=== PATIENT | female | born 1965 | race Caucasian/White ===

== ENCOUNTER → 2022-05-29 14:39 | Outpatient (BNVA) | payer MEDICARE, OTHER, SELFPAY | PROVIDERS: PCP Internal Medicine; Visit Provider Nurse Practitioner Family | DX: M25.552 Pain in left hip (principal); M16.12 Unilateral primary osteoarthritis, left hip; M53.9 Dorsopathy, unspecified; M47.819 Spondylosis without myelopathy or radiculopathy, site unspecified; Z96.89 Presence of other specified functional implants | CPT/HCPCS: 99202 ==

== ENCOUNTER 2022-07-09 06:20 | Outpatient (REF) | payer MEDICARE, OTHER, SELFPAY ==
--- NOTE | ~2022-07-09 | FL_ITS ---
EXAMINATION: XR FLUOROSCOPY WITH IMAGES CLINICAL INFORMATION: Left hip pain. COMPARISON: None. TECHNIQUE: Fluoroscopy performed by Dr. Tony Farnsworth. Fluoroscopy time: 0.3 minutes. Cumulative Dose: 16.7 mGy. DAP: 4.15 Gy-cm2. Images: 2. FINDINGS: Fluoroscopic spot view left hip demonstrates intracapsular contrast. There is also a fluoroscopic spot view of the thoracolumbar spine. Spinal stimulator is noted. FL/FL guidance in treatment room IMPRESSION: Fluoroscopy for pain management procedure.
== END 2022-07-09 06:21 | disposition home or self-care (01) ==
LOC: HO.RADIR 06:20
PROVIDERS: Visit Provider Anesthesiology
DX: M16.12 Unilateral primary osteoarthritis, left hip (principal); M53.9 Dorsopathy, unspecified; M47.819 Spondylosis without myelopathy or radiculopathy, site unspecified; Z96.89 Presence of other specified functional implants
CPT/HCPCS: 20610; J3300

== ENCOUNTER 2022-08-05 14:07 | Outpatient (REF) | payer MEDICARE, OTHER, SELFPAY ==
--- NOTE | ~2022-08-05 | XR_ITS ---
EXAMINATION: XR FEMUR, LEFT XR PELVIS CLINICAL INFORMATION: Pain left thigh. COMPARISON: None TECHNIQUE: 2 views left femur and 2 views AP pelvis. FINDINGS: LEFT FEMUR: There is mild loss of left hip joint space with inferior periarticular spurring. No bony fracture, periosteal thickening or bone marrow abnormality seen. The soft tissues are normal. AP PELVIS: There is mild loss of left hip joint space with periarticular spurring. No visible acute fracture or bony abnormality seen. The soft tissues are normal. The SI joints are normal. XR/XR femur LT 2V IMPRESSION: Degenerative arthritic changes left hip joint. Rest of the pelvis and left femur is unremarkable.
--- NOTE | ~2022-08-05 | XR_ITS ---
EXAMINATION: XR FEMUR, LEFT XR PELVIS CLINICAL INFORMATION: Pain left thigh. COMPARISON: None TECHNIQUE: 2 views left femur and 2 views AP pelvis. FINDINGS: LEFT FEMUR: There is mild loss of left hip joint space with inferior periarticular spurring. No bony fracture, periosteal thickening or bone marrow abnormality seen. The soft tissues are normal. AP PELVIS: There is mild loss of left hip joint space with periarticular spurring. No visible acute fracture or bony abnormality seen. The soft tissues are normal. The SI joints are normal. XR/XR pelvis 1-2V IMPRESSION: Degenerative arthritic changes left hip joint. Rest of the pelvis and left femur is unremarkable.
[2022-08-05 16:07] LABS: Blood Urea Nitrogen 16 mg/dL (9-16); Estimated Glomerular Filt Rate > 60
== END 2022-08-05 14:08 | disposition home or self-care (01) ==
LOC: HO.LAB 14:07
PROVIDERS: PCP Internal Medicine; Visit Provider Nurse Practitioner Family
DX: M16.12 Unilateral primary osteoarthritis, left hip (principal); M79.652 Pain in left thigh; M47.819 Spondylosis without myelopathy or radiculopathy, site unspecified; M53.9 Dorsopathy, unspecified; M54.16 Radiculopathy, lumbar region; Z96.89 Presence of other specified functional implants
CPT/HCPCS: 36415; 72170; 73552; 82565; 84520; 99212

== ENCOUNTER → 2022-12-02 13:01 | Outpatient (BNVA) | payer MEDICARE, OTHER, SELFPAY | PROVIDERS: PCP Internal Medicine; Visit Provider Nurse Practitioner Family | DX: M54.16 Radiculopathy, lumbar region (principal); M47.819 Spondylosis without myelopathy or radiculopathy, site unspecified; M53.9 Dorsopathy, unspecified; M47.816 Spondylosis without myelopathy or radiculopathy, lumbar region; Z96.89 Presence of other specified functional implants; E66.01 Morbid (severe) obesity due to excess calories; Z68.42 Body mass index [BMI] 45.0-49.9, adult | CPT/HCPCS: 99212 ==

== ENCOUNTER 2022-12-13 07:53 | Day surgery (SDC) | payer MEDICARE, OTHER, SELFPAY ==
[2022-12-09 14:38] VITALS: BMI 47.2
--- NOTE | ~2022-12-13 | FL_ITS ---
EXAMINATION: XR FLUOROSCOPY WITH IMAGES CLINICAL INFORMATION: Back pain. Bilateral medial branch block COMPARISON: None. TECHNIQUE: Fluoroscopy Supervised By: Dr. Tony Farnsworth. Fluoroscopy Time: 1.1 minutes. Cumulative Dose: 77.9 mGy. DAP: 21.2 Gycm2. Images: 6. FINDINGS: There are spinal needles overlying the bilateral outer L3, L4, and L5 neural foramen. There is contrast seen in the respective nerve sheaths. Some early transforaminal epidural extension is suggested. No visible vascular communication. There are degenerative changes lumbar spine with mild vertebral spurring. FL/FL guidance in OR IMPRESSION: Fluoroscopy for pain management procedures.
[2022-12-13 08:21] VITALS: BP 106/73; PULSE 74; RESP 18; TEMP 37; O2SAT 97
--- NOTE | 2022-12-13 08:25 | HO.ANESPROP2 ---
HPI - Anesthesia Eval Consult details Narrative: 57 yr old morbidlyobese pt with anxiety for diagnostic MBBB PMFSH Active Problems Active Problems: All Active Problems (Updated 12/09/22 @ 14:21 by Nilda Starr RN) Left hip pain (Acute) Osteoarthritis of left hip (Acute) Multilevel degenerative disc disease (Acute) Facet arthropathy, multilevel (Acute) S/P insertion of spinal cord stimulator (Acute) Left thigh pain (Acute) Lumbar radiculitis (Acute) Spinal cord stimulator status (Acute) Lumbar spondylosis (Acute) Morbid obesity with BMI of 45.0-49.9, adult (Acute) Past Medical History Medical History (Updated 12/09/22 @ 14:21 by Nilda Starr RN) GERD (gastroesophageal reflux disease) HTN (hypertension) Hypothyroid Lumbar radiculitis Lumbar spondylosis Multilevel degenerative disc disease Osteoarthritis Family History Family history of problems with anesthesia: No Surgical History Surgical History (Updated 12/09/22 @ 14:17 by Nilda Starr RN) History of back surgery History of sleeve gastrectomy History of surgery on left wrist Hx of cholecystectomy Hx of hysterectomy Hx of laparoscopic gastric banding Hx of sinus surgery S/P insertion of spinal cord stimulator History of Problems with Anesthesia: No Social History Social History Patient Tobacco Use Status: Never used Tobacco Second Hand Smoke Exposure: No Use of substances other than those prescribed or required for medical reasons: No Are you DNR?: No Advance Directives: No Advance Directives Information Provided: Yes Advance Directives on File: No Meds Allergies Allergy/AdvReac Type Severity Reaction Status Date / Time morphine AdvReac Severe n/v Verified 08/05/22 13:35 Active Medications: Current Medications Lactated Ringer's (Lr) 1,000 mls @ 80 mls/hr IVCONT .[id number] [facility] Home Medications Medication Instructions Recorded Confirmed Last Taken Type aspirin 81 mg tablet,delayed 81 mg PO DAILY 05/29/22 12/09/22 12/06/22 History release (Adult Aspirin Regimen) celecoxib 100 mg capsule 100 mg PO BID 05/29/22 12/09/22 12/06/22 History cyclobenzaprine 10 mg tablet 10 mg PO BID 05/29/22 12/09/22 Unknown History estradiol 0.05 mg/24 hr semiweekly 1 patch transdermal ONCE 05/29/22 12/09/22 Unknown History transdermal patch (Yari) furosemide 80 mg tablet 80 mg PO DAILY 05/29/22 12/09/22 Unknown History gabapentin 600 mg tablet 900 mg PO TID 05/29/22 12/09/22 Unknown History hydroxyzine HCl 10 mg tablet 10 mg PO BID 05/29/22 12/09/22 Unknown History levothyroxine 150 mcg tablet 150 mcg PO DAILY 05/29/22 12/09/22 Unknown History lidocaine 5 % topical patch 1 patch transdermal DAILY 05/29/22 12/09/22 Unknown History metoprolol succinate 50 mg 50 mg PO DAILY 05/29/22 12/09/22 Unknown History tablet,extended release 24 hr omeprazole 20 mg capsule,delayed 20 mg PO DAILY 05/29/22 12/09/22 Unknown History release oxcarbazepine 300 mg tablet 300 mg PO BID 05/29/22 12/09/22 Unknown History oxycodone-acetaminophen 5 mg-325 1 tab PO TID PRN Pain 05/29/22 12/09/22 Unknown History mg tablet pramipexole 1 mg tablet 1 mg PO TID 05/29/22 12/09/22 Unknown History triamcinolone acetonide 0.1 % appl topical 08/05/22 Unknown History topical cream sertraline 100 mg tablet 100 mg PO DAILY 12/02/22 12/09/22 Unknown History Exam Exam Date and Time: December 13, 2022 0825 Height,Weight and Vital Signs: Height 5 ft 7 in Weight 136.985 kg Last Vital Signs Temp 98.6 F 12/13/22 08:21 Pulse 74 12/13/22 08:21 Resp 18 12/13/22 08:21 BP 106/73 12/13/22 08:21 Pulse Ox 97 12/13/22 08:21 O2 Del Method 12/13/22 08:21 Airway Mallampati Class: II TM Dist: >3cm Heart: rrr Lungs: cta Assessment and Plan Assessment Anesthesia Assessment: Anesthesia Plan Discussed and Chart Reviewed Final Anesthetic Review Family History of Problems with Anesthesia: No History of Problems with Anesthesia: No NPO: Yes ASA Class: III Final Preanesthetic Review: No Changes in Pt Med Stat, Meds/Allgs Chart Reviewed, Consent Obtained/Reviewed and Anes Risks/Benef Reviewed Patient Risk: Low Procedure Risk: Low Anesthetic Plan Anesthetic Plan: MAC: Disposition: Standard PACU
[2022-12-13] MEDS: Lactated Ringers 1,000 ML 80 ML IVCONT (08:30)
--- NOTE | 2022-12-13 08:44 | MHC.SHP ---
Pre-Procedural Eval Section A Date of Service: 12/13/22 The patient is an INPATIENT: No Changes since office visit: Yes Patient answered all questions The History & Physical has been completed within 30 days and I have reviewed it.: No Section B Chief Complaint: Spondylosis without myelopathy or radiculopathy, Details of Present Illness: spondylosis without myelo/radiculopathy Relevant Family History (Specify if Yes): No Relevant Social History: None Medical History: No relevant PMH History of Previous Operations: No relevant previous surgery Allergies: Allergies Allergy/AdvReac Type Severity Reaction Status Date / Time morphine AdvReac Severe n/v Verified 08/05/22 13:35 Review of Systems Sugical H&P ROS: Negative: Cardiovascular, Respiratory, Neurological, Psychiatric, Hem-Onc, Allergic/Immunologic, Gastrointestinal, Genitourinary, Musculoskeletal, Integumentary and Eyes/Ears/Nose/Throat and Yes, Specify: Constitution (obesity) and Endocrine (hypothyroidism) Exam Surgical H&P Exam: Normal: HEENT, Normal: Heart, Normal: Lungs, Normal: Extremities, Normal: Skin and Normal: Neurological and Significant Findings: Abdomen (enlarged 2 to i/a and s/q fat) Plan Diagnosis/Plan: Unchanged I have reviewed the history and physical and performed a pertinent physical examination on my patient. No changes have occurred unless specified. Time Spent With Patient Time: Total time managing care of this patient today _10___ minutes.
[2022-12-13 09:35] VITALS: BP 126/61; PULSE 87; RESP 17; TEMP 37.4; O2SAT 100
--- NOTE | 2022-12-13 09:38 | P.BOP_ITS ---
Brief Operative Note Date of Service: 12/13/22 Pre-op diagnosis: spondylosis lumbar spine without myelo/radiculopathy Post-op diagnosis: same Procedure: bilateral diagnostic L3- L4- L5 MBBs Surgeon: Tony Farnsworth MD Anesthesia: MAC Was an Computer Game Programmer used for this Procedure?: No Estimated blood loss (mL): 2 Condition: stable Disposition: PACU
--- NOTE | 2022-12-13 09:42 | W.PM.OPN ---
Operative Note Operative Note Date of Service: 12/13/22 Narrative: Diagnostic medial branch block L3,L4 dorsal ramus L5 bilateral.? ? ?Informed consent was very thoroughly explained to the patient. All questions were explained and? answered.? The patient was taken inside the operating room where she was positioned prone on the operating table. Time-out was performed delineating correct site, side, the nature of the procedure, patient's allergy, preoperative antibiotic if needed.? All operating room staff was participating in OR time-out procedure. ASA monitors were applied and the patient was moderately sedated. It was noted that the restless leg syndrome became exacerbated under deeper level of sedation, the patient became very restless and due to her significant body mass there was a risk that the patient would fall off the OR table. The patient is held and we waited until she woke up more. While awake the patient calmed down and was able to stay more still throughout of the procedure ? ? The lower back was prepped with ChloraPrep and draped full body fenestrated laparoscopy drape.?I was wearing sterile surgical gown and sterile C-arm was brought over the operating field and sq picture of L4-and L5 vertebra and S1 AREA were delineated on the screen.? Point of interest were delineated as confluence of superior articular process of L4 and L5 vertebra bilaterally with corresponding transverse processes as well as confluence of the sacral alae bilaterally with superior articular process of S1.? The projection of the point of interest to the skin were injected with the small amount of local anesthetic lidocaine 2% 1-1.5 cc.? After that 22 gauge 5 inch spinal needle was driven sequentially to the points of interest in tunnel vision fashion. After needles gently contacted the bone at the point of interests the needle was injected with small amount of the contrast.? The injection of the contrast did not demonstrate any intravascular or intrathecal spread of the contrast.? After that injection of the? ropivacaine 0.5%-1cc was performed at each needle location.? ? Upon completion of the injections? needle was? removed and sterile Band-Aids were applied.??The patient tolerated the procedure well, she went to PACU for the recovery.
[2022-12-13 09:50] VITALS: BP 125/66; PULSE 70; RESP 18; TEMP 37.2; O2SAT 98
== END 2022-12-13 10:18 | disposition home or self-care (01) ==
PROVIDERS: PCP Internal Medicine; Visit Provider Anesthesiology
PROC: (CPT 64493; principal; 2022-12-13 09:10)
DX: M47.816 Spondylosis without myelopathy or radiculopathy, lumbar region (principal); M53.9 Dorsopathy, unspecified; M51.36 Other intervertebral disc degeneration, lumbar region; G57.92 Unspecified mononeuropathy of left lower limb; G25.81 Restless legs syndrome; E66.01 Morbid (severe) obesity due to excess calories; Z68.42 Body mass index [BMI] 45.0-49.9, adult; Z96.89 Presence of other specified functional implants
CPT/HCPCS: 64493; 64494; J2795; J3010; Q9965

== ENCOUNTER → 2022-12-17 11:03 | Outpatient (BNVA) | payer MEDICARE, OTHER, SELFPAY | PROVIDERS: PCP Internal Medicine; Visit Provider Nurse Practitioner Family | DX: M47.26 Other spondylosis with radiculopathy, lumbar region (principal); M53.9 Dorsopathy, unspecified | CPT/HCPCS: Q3014 ==

== ENCOUNTER 2022-12-27 07:42 | Day surgery (SDC) | payer MEDICARE, OTHER, SELFPAY ==
--- NOTE | ~2022-12-27 | FL_ITS ---
EXAMINATION: XR FLUOROSCOPY WITH IMAGES CLINICAL INFORMATION: Bilateral lumbar RFA. COMPARISON: Fluoroscopic spot views lumbar spine 12/13/2022. TECHNIQUE: Fluoroscopy Supervised By: Dr. Tony Farnsworth. Fluoroscopy Time: 1.0 minutes. Cumulative Dose: 27.0 mGy. DAP: 7.38 Gycm2. Images: 6. FINDINGS: There are bilateral needle/electrodes overlying the bilateral outer L3, L4, and L5 neural foramen. FL/FL guidance in OR IMPRESSION: Fluoroscopy for pain management procedures.
[2022-12-27 07:44] VITALS: BMI 47.2
[2022-12-27 08:09] VITALS: BP 106/52; PULSE 62; RESP 20; TEMP 36.1; O2SAT 96
--- NOTE | 2022-12-27 09:28 | P.HPSUR_ITS ---
Pre-Procedural Eval Section A Date of Service: 12/27/22 The patient is an INPATIENT: No Changes since office visit: Yes Changes in Medication The History & Physical has been completed within 30 days and I have reviewed it.: No Section B Chief Complaint: Spondylosis without myelopathy or radiculopathy, l Details of Present Illness: spondylosis lumbar without myelopathy or radiculopathy Relevant Family History (Specify if Yes): No Relevant Social History: None Present Medications: see Short Stay Collaborative assessment Medical History: No relevant PMH History of Previous Operations: Relevant previous surgery/procedure and date(s) (patient has SCS for the pain control which does not cover her axial pain.) Allergies: Allergies Allergy/AdvReac Type Severity Reaction Status Date / Time morphine AdvReac Severe n/v Verified 08/05/22 13:35 Review of Systems Sugical H&P ROS: Negative: Cardiovascular, Respiratory, Psychiatric, Hem-Onc, Allergic/Immunologic, Gastrointestinal, Genitourinary, Integumentary, Endocrine and Eyes/Ears/Nose/Throat and Yes, Specify: Constitution (morbid obesity), Neurological (restless legs syndrome) and Musculoskeletal (as above) Exam Surgical H&P Exam: Normal: HEENT, Normal: Heart, Normal: Lungs, Normal: Extremities, Normal: Abdomen and Normal: Skin and Significant Findings: [place] rological (restless legs) Plan Diagnosis/Plan: Change I have reviewed the history and physical and performed a pertinent physical examination on my patient. To expedite the service for this patient considering her co-morbidities and difficulty with anesthesia for this patient the decision was made to perform bilateral RFA instead of left sided procedure. Time Spent With Patient Time: Total time managing care of this patient today ___15_ minutes.
--- NOTE | 2022-12-27 10:12 | HO.ANESPROP2 ---
HPI - Anesthesia Eval Consult details Narrative: median n branch block for chronic pain bl l3/4 drl5 [facility] Active Problems Active Problems: All Active Problems (Updated 12/09/22 @ 14:21 by Nilda Starr RN) Left hip pain (Acute) Osteoarthritis of left hip (Acute) Multilevel degenerative disc disease (Acute) Facet arthropathy, multilevel (Acute) S/P insertion of spinal cord stimulator (Acute) Left thigh pain (Acute) Lumbar radiculitis (Acute) Spinal cord stimulator status (Acute) Lumbar spondylosis (Acute) Morbid obesity with BMI of 45.0-49.9, adult (Acute) Past Medical History Medical History GERD (gastroesophageal reflux disease) HTN (hypertension) Hypothyroid Lumbar radiculitis Lumbar spondylosis Multilevel degenerative disc disease Osteoarthritis Functional capacity: uses cane/walker Family History Family history of problems with anesthesia: No Surgical History Surgical History History of back surgery History of sleeve gastrectomy History of surgery on left wrist Hx of cholecystectomy Hx of hysterectomy Hx of laparoscopic gastric banding Hx of sinus surgery S/P insertion of spinal cord stimulator History of Problems with Anesthesia: No Social History Social History Patient Tobacco Use Status: Never used Tobacco Second Hand Smoke Exposure: No Are you DNR?: No Advance Directives: No Advance Directives Information Provided: Yes Nutrition Risks: No Nutritional Risk Meds Allergies Allergy/AdvReac Type Severity Reaction Status Date / Time morphine AdvReac Severe n/v Verified 08/05/22 13:35 Home Medications Medication Instructions Recorded Confirmed Last Taken Type aspirin 81 mg tablet,delayed 81 mg PO DAILY 05/29/22 12/09/22 12/06/22 History release (Adult Aspirin Regimen) celecoxib 100 mg capsule 100 mg PO BID 05/29/22 12/09/22 12/06/22 History cyclobenzaprine 10 mg tablet 10 mg PO BID 05/29/22 12/09/22 Unknown History estradiol 0.05 mg/24 hr semiweekly 1 patch transdermal ONCE 05/29/22 12/09/22 Unknown History transdermal patch (Yari) furosemide 80 mg tablet 80 mg PO DAILY 05/29/22 12/09/22 Unknown History gabapentin 600 mg tablet 900 mg PO TID 05/29/22 12/09/22 Unknown History hydroxyzine HCl 10 mg tablet 10 mg PO BID 05/29/22 12/09/22 Unknown History levothyroxine 150 mcg tablet 150 mcg PO DAILY 05/29/22 12/09/22 Unknown History lidocaine 5 % topical patch 1 patch transdermal DAILY 05/29/22 12/09/22 Unknown History metoprolol succinate 50 mg 50 mg PO DAILY 05/29/22 12/09/22 Unknown History tablet,extended release 24 hr omeprazole 20 mg capsule,delayed 20 mg PO DAILY 05/29/22 12/09/22 Unknown History release oxcarbazepine 300 mg tablet 300 mg PO BID 05/29/22 12/09/22 Unknown History oxycodone-acetaminophen 5 mg-325 1 tab PO TID PRN Pain 05/29/22 12/09/22 Unknown History mg tablet pramipexole 1 mg tablet 1 mg PO TID 05/29/22 12/09/22 Unknown History triamcinolone acetonide 0.1 % appl topical 08/05/22 Unknown History topical cream sertraline 100 mg tablet 100 mg PO DAILY 12/02/22 12/09/22 Unknown History Exam Exam Date and Time: December 27, 2022 1012 Height,Weight and Vital Signs: Height 5 ft 7 in Weight 136.985 kg Last Vital Signs Temp 97 F 12/27/22 08:09 Pulse 62 12/27/22 08:09 Resp 20 12/27/22 08:09 BP 106/52 L 12/27/22 08:09 Pulse Ox 96 12/27/22 08:09 O2 Del Method 12/27/22 08:09 Airway Mallampati Class: II TM Dist: >3cm Neck ROM: Full Heart: RR Lungs: CTA Assessment and Plan Final Anesthetic Review Family History of Problems with Anesthesia: No History of Problems with Anesthesia: No NPO: Yes ASA Class: III Final Preanesthetic Review: No Changes in Pt Med Stat, Meds/Allgs Chart Reviewed, Consent Obtained/Reviewed and Anes Risks/Benef Reviewed Patient Risk: Low Procedure Risk: Low Anesthetic Plan Anesthetic Plan: MAC: and Agree w/ Assess. and Plan Disposition: Standard PACU
[2022-12-27 10:52] VITALS: BP 141/88; PULSE 60; RESP 18; TEMP 36.4; O2SAT 99
--- NOTE | 2022-12-27 10:58 | PM.OP ---
Brief Operative Note Date of Service: 12/27/22 Pre-op diagnosis: spondylosis lumbar without myelopathy or radiculopathy Post-op diagnosis: same Procedure: L3- L4- DRL5 bilateral MB RFA. Surgeon: Tony Farnsworth MD Was an Restaurant And Bar Manager used for this Procedure?: No Estimated blood loss (mL): 4 Pathology: none sent Condition: stable Disposition: PACU
--- NOTE | 2022-12-27 11:01 | W.PM.OPN ---
Operative Note Operative Note Date of Service: 12/27/22 Narrative: RFA [id number] bilateral Informed consent was explained to the patient. All questions were explained and answered. The patient was taken inside the operating room where he was positioned prone on the operating table. ASA m-rs were applied, the patient was minimally sedated.She was? able to answer the questions and respond to the commands. Time-out was performed delineating name and of the patient,? correct site, side, the nature of the procedure, patient's allergy, preoperative antibiotic if needed. All operating room staff was participating in OR time-out procedure. The lower back was prepped with ChloraPrep and draped with sterile towels. C-arm was brought over the operating field and sq picture of L4, L5 vertebra and S1 AREA were delineated on the screen. Point of interest were delineated as connection of superior articular process of , L4, L5 vertebra bilaterally with corresponding transverse processes as well as connection of the sacral alae bilaterally with superior articular process of S1 1st on the right and then on the left side. ?The projection of the point of interest to the skin were injected with the small amount of local anesthetic lidocaine 2% 1-1.5 cc. After that 18 gauge 150 mm RFA canulas? were driven to the point of interest in oblique fashion. After needles gently contacted the bone the sensory test was performed, patient reported pressure? sensation on sensory test.? After that motor tests were performed and no motor response was detected in the patients feet lower legs or thighs. After that? at the point of interests the cannulas? were injected with small amount of ropivacaine 0.5% mixed with lidocaine 1%-1cc? and also mixed with very small amount of Kenalog. 90 seconds after the injection the energy application was performed at 89 degrees Centigrade for 90 second. After first energy application the canullas were rotated 180 degrees and energy application was repeated at the same setting. . Upon completion of the energy applications canullas were removed and sterile bandaids? were applied, The? patient was taken outside of the operating room to recovery room where she recovered uneventfully.
[2022-12-27 11:07] VITALS: BP 123/72; PULSE 58; RESP 18; TEMP 36.2; O2SAT 98
== END 2022-12-27 11:38 | disposition home or self-care (01) ==
PROVIDERS: PCP Internal Medicine; Visit Provider Anesthesiology
PROC: (CPT 64635; principal; 2022-12-27 09:10)
DX: M47.816 Spondylosis without myelopathy or radiculopathy, lumbar region (principal); G89.29 Other chronic pain; M53.9 Dorsopathy, unspecified; G25.81 Restless legs syndrome; M19.90 Unspecified osteoarthritis, unspecified site; I10 Essential (primary) hypertension; E03.9 Hypothyroidism, unspecified; Z79.82 Long term (current) use of aspirin; Z79.899 Other long term (current) drug therapy; Z88.8 Allergy status to other drugs, medicaments and biological substances; Z98.890 Other specified postprocedural states; Z98.84 Bariatric surgery status
CPT/HCPCS: 64635; 64636 ×2; J2250; J2795; J3010; J3301

== ENCOUNTER → 2023-01-28 14:47 | Outpatient (BNVA) | payer MEDICARE, OTHER, SELFPAY | PROVIDERS: PCP Internal Medicine; Visit Provider Nurse Practitioner Family | DX: M25.552 Pain in left hip (principal); M16.12 Unilateral primary osteoarthritis, left hip; M35.00 Sjogren syndrome, unspecified; M53.9 Dorsopathy, unspecified; M47.816 Spondylosis without myelopathy or radiculopathy, lumbar region; E66.01 Morbid (severe) obesity due to excess calories; Z68.42 Body mass index [BMI] 45.0-49.9, adult | CPT/HCPCS: 99212 ==

== ENCOUNTER → 2023-04-08 10:15 | Outpatient (BNVA) | payer MEDICARE, OTHER, SELFPAY | PROVIDERS: PCP Internal Medicine; Visit Provider Nurse Practitioner Family | DX: M25.552 Pain in left hip (principal); M16.12 Unilateral primary osteoarthritis, left hip; M53.9 Dorsopathy, unspecified; M47.816 Spondylosis without myelopathy or radiculopathy, lumbar region; M96.1 Postlaminectomy syndrome, not elsewhere classified; E66.01 Morbid (severe) obesity due to excess calories; Z68.42 Body mass index [BMI] 45.0-49.9, adult | CPT/HCPCS: 99212 ==

== ENCOUNTER 2023-04-24 10:35 | Day surgery (SDC) | payer MEDICARE, OTHER, SELFPAY ==
[2023-04-21 15:10] VITALS: BMI 46.5
--- NOTE | 2023-04-23 09:00 | P.CONAN_ITS ---
Documented by User: Sumaya Zhu NP 04/23/23 09:01 HPI - Anesthesia Eval Consult details Narrative: 57yo F for Left therapeutic intra-Articular hip Injection Chronic opioids s/p medial branch RFA with [facility] Active Problems Active Problems: All Active Problems (Updated 04/08/23 @ 14:52 by GAETANO Valdivia) Post laminectomy syndrome (Acute) Sjogrens syndrome (Acute) Left hip pain (Acute) Osteoarthritis of left hip (Acute) Multilevel degenerative disc disease (Acute) Facet arthropathy, multilevel (Acute) S/P insertion of spinal cord stimulator (Acute) Left thigh pain (Acute) Lumbar radiculitis (Acute) Spinal cord stimulator status (Acute) Lumbar spondylosis (Acute) Morbid obesity with BMI of 45.0-49.9, adult (Acute) Past Medical History Medical History GERD (gastroesophageal reflux disease) HTN (hypertension) Hypothyroid Lumbar radiculitis Lumbar spondylosis Multilevel degenerative disc disease Neurodermatitis Osteoarthritis Sjogrens syndrome Family History Family history of problems with anesthesia: No Surgical History Surgical History History of back surgery History of sleeve gastrectomy History of surgery on left wrist Hx of cholecystectomy Hx of hysterectomy Hx of laparoscopic gastric banding Hx of sinus surgery S/P insertion of spinal cord stimulator History of Problems with Anesthesia: No Social History Social History Patient Tobacco Use Status: Never used Tobacco Second Hand Smoke Exposure: No Use of substances other than those prescribed or required for medical reasons: No Are you DNR?: No Advance Directives: No Advance Directives Information Provided: Yes Meds Allergies Allergy/AdvReac Type Severity Reaction Status Date / Time morphine AdvReac Severe n/v Verified 01/28/23 14:54 Home Medications Medication Instructions Recorded Confirmed Last Taken Type aspirin 81 mg tablet,delayed 81 mg PO DAILY 05/29/22 04/24/23 12/06/22 History release (Adult Aspirin Regimen) celecoxib 100 mg capsule 100 mg PO BID 05/29/22 04/24/23 12/06/22 History cyclobenzaprine 10 mg tablet 10 mg PO BID 05/29/22 04/24/23 Unknown History estradiol 0.05 mg/24 hr semiweekly 1 patch transdermal ONCE 05/29/22 04/24/23 Unknown History transdermal patch (Yari) furosemide 80 mg tablet 80 mg PO DAILY PRN edema 05/29/22 04/24/23 Unknown History gabapentin 600 mg tablet 900 mg PO TID 05/29/22 04/24/23 Unknown History hydroxyzine HCl 10 mg tablet 10 mg PO BID 05/29/22 04/24/23 Unknown History levothyroxine 150 mcg tablet 150 mcg PO DAILY 05/29/22 04/24/23 Unknown History lidocaine 5 % topical patch 1 patch transdermal DAILY 05/29/22 04/24/23 Unknown History metoprolol succinate 50 mg 50 mg PO DAILY 05/29/22 04/24/23 Unknown History tablet,extended release 24 hr omeprazole 20 mg capsule,delayed 20 mg PO DAILY 05/29/22 04/24/23 Unknown History release oxcarbazepine 300 mg tablet 300 mg PO BID 05/29/22 04/24/23 Unknown History oxycodone-acetaminophen 5 mg-325 1 tab PO TID PRN Pain 05/29/22 04/24/23 Unknown History mg tablet pramipexole 1 mg tablet 1 mg PO TID 05/29/22 04/24/23 Unknown History triamcinolone acetonide 0.1 % appl topical 08/05/22 01/28/23 Unknown History topical cream sertraline 100 mg tablet 100 mg PO DAILY 12/02/22 04/24/23 Unknown History albuterol sulfate 90 mcg/actuation 0 mcg inhalation 04/08/23 Unknown History aerosol inhaler morphine 15 mg tablet,extended 15 mg PO BID PRN Pain 04/08/23 04/24/23 Unknown History release Exam Exam Date and Time: April 23, 2023 09 Height,Weight and Vital Signs: Height 5 ft 7 in Weight 134.717 kg Assessment and Plan Assessment Anesthesia Assessment: Chart Reviewed Final Anesthetic Review Family History of Problems with Anesthesia: No History of Problems with Anesthesia: No Documented by User: Melanie Nicole MD 04/24/23 12:04 [facility] Past Medical History Medical History GERD (gastroesophageal reflux disease) HTN (hypertension) Hypothyroid Lumbar radiculitis Lumbar spondylosis Multilevel degenerative disc disease Neurodermatitis Osteoarthritis Sjogrens syndrome Surgical History Surgical History History of back surgery History of sleeve gastrectomy History of surgery on left wrist Hx of cholecystectomy Hx of hysterectomy Hx of laparoscopic gastric banding Hx of sinus surgery S/P insertion of spinal cord stimulator Social History Social History Patient Tobacco Use Status: Never used Tobacco Second Hand Smoke Exposure: No Use of substances other than those prescribed or required for medical reasons: No Are you DNR?: No Advance Directives: No Advance Directives Information Provided: Yes Meds Allergies Allergy/AdvReac Type Severity Reaction Status Date / Time morphine AdvReac Severe n/v Verified 01/28/23 14:54 Home Medications Medication Instructions Recorded Confirmed Last Taken Type aspirin 81 mg tablet,delayed 81 mg PO DAILY 05/29/22 04/24/23 12/06/22 History release (Adult Aspirin Regimen) celecoxib 100 mg capsule 100 mg PO BID 05/29/22 04/24/23 12/06/22 History cyclobenzaprine 10 mg tablet 10 mg PO BID 05/29/22 04/24/23 Unknown History estradiol 0.05 mg/24 hr semiweekly 1 patch transdermal ONCE 05/29/22 04/24/23 Unknown History transdermal patch (Yari) furosemide 80 mg tablet 80 mg PO DAILY PRN edema 05/29/22 04/24/23 Unknown History gabapentin 600 mg tablet 900 mg PO TID 05/29/22 04/24/23 Unknown History hydroxyzine HCl 10 mg tablet 10 mg PO BID 05/29/22 04/24/23 Unknown History levothyroxine 150 mcg tablet 150 mcg PO DAILY 05/29/22 04/24/23 Unknown History lidocaine 5 % topical patch 1 patch transdermal DAILY 05/29/22 04/24/23 Unknown History metoprolol succinate 50 mg 50 mg PO DAILY 05/29/22 04/24/23 Unknown History tablet,extended release 24 hr omeprazole 20 mg capsule,delayed 20 mg PO DAILY 05/29/22 04/24/23 Unknown History release oxcarbazepine 300 mg tablet 300 mg PO BID 05/29/22 04/24/23 Unknown History oxycodone-acetaminophen 5 mg-325 1 tab PO TID PRN Pain 05/29/22 04/24/23 Unknown History mg tablet pramipexole 1 mg tablet 1 mg PO TID 05/29/22 04/24/23 Unknown History triamcinolone acetonide 0.1 % appl topical 08/05/22 01/28/23 Unknown History topical cream sertraline 100 mg tablet 100 mg PO DAILY 12/02/22 04/24/23 Unknown History albuterol sulfate 90 mcg/actuation 0 mcg inhalation 04/08/23 Unknown History aerosol inhaler morphine 15 mg tablet,extended 15 mg PO BID PRN Pain 04/08/23 04/24/23 Unknown History release Exam Airway Mallampati Class: II TM Dist: >3cm Heart: rrr Lungs: cta Assessment and Plan Assessment Anesthesia Assessment: Anesthesia Plan Discussed Final Anesthetic Review NPO: Yes ASA Class: III Final Preanesthetic Review: No Changes in Pt Med Stat, Meds/Allgs Chart Reviewed and Consent Obtained/Reviewed Patient Risk: Intermediate Procedure Risk: Low Anesthetic Plan Anesthetic Plan: MAC: Disposition: Standard PACU
--- NOTE | ~2023-04-24 | FL_ITS ---
EXAMINATION: XR FLUOROSCOPY WITH IMAGES CLINICAL INFORMATION: Left hip injection. COMPARISON: None available. TECHNIQUE: Fluoroscopy Supervised By: Dr. Farnsworth. Fluoroscopy Time: 0.1 minutes. Cumulative Dose: 15.4 mGy. DAP: 4.20 Gycm2. Images: 1. FINDINGS: Images demonstrate needle placement and contrast injection of the left hip joint FL/FL guidance in OR IMPRESSION: Fluoroscopy guidance for left hip joint injection
--- OUTSIDE RECORDS SUMMARY | 2023-04-24 10:36 | XMS_ITS | Continuity of Care Document ---
Author Name Unknown Organization [place] Address [address] [place] [id number]- Care Team Providers Care Electronic Publishing Specialist Name Role Phone Yemi BRAUN MD, Dc Glez Primary Care Physician [id number] Date(s): 02/17/23 - 04/19/[address] [address]- Encounter Diagnosis Low back pain, unspecified(Final) - Discharge Disposition: A-D/C Home Attending Physician: Dc Bragg III, MD Admitting Physician: Dc Bragg III, MD Referring Physician: Juliet PELLETIER, Carmela Dinh Allergies, Adverse Reactions, Alerts Substance Reaction Severity Status morphine severe vomiting Persistent Severe Resolve d Adhesive Bandage skin blisters Persistent Severe Activ e Immunizations Given and Recorded Vaccine Date Status Refusal Reason SARS-CoV-2 mRNA ([id number]) vax 02/21/22 Recorded SARS-CoV-2 (COVID-19) mRNA BNT-162b2 vac 09/19/21 Recorded SARS-CoV-2 (COVID-19) mRNA BNT-162b2 vac 03/02/21 Recorded SARS-CoV-2 (COVID-19) mRNA BNT-162b2 vac 02/09/21 Recorded Medications acetaminophen 325 mg oral tablet 975 mg, By Mouth, 3 times a day, not to exceed 4000 mg/day, Refills 0, Maintenance, 03/20/23 11:17:00 EDT, Partial fill upon patient request if the prescription is for a schedule II opioid drug. Start Date: 03/20/23 Stop Date: 03/25/23 Status: Ordered cyclobenzaprine 10 mg oral tablet 10 mg, 1, tablet, By Mouth, 2 times a day, # 90 tablet, Refills 0, Maintenance, 10/18/21 12:07:00 EST, Partial fill upon patient request if the prescription is for a schedule II opioid drug. Start Date: 10/18/21 Status: Ordered ferrous sulfate 325 mg oral enteric coated tablet 325 mg, By Mouth, Daily, # 30 tablet, Refills 0, Tot. Refills 0, Maintenance, 03/20/23 11:18:00 EDT, Print Requisition, Partial fill upon patient request if the prescription is for a schedule II opioid drug. Start Date: 03/20/23 Status: Ordered Heating Pad See Instructions, # 1 application, Maintenance, Apply to affected area as needed for pain., 05/30/16 11:53:16, Compound Start Date: 05/30/16 Status: Ordered Levothyroxine = 150 mcg, By Mouth, Daily in AM, 0 Refills, Maintenance, 08/20/12 14:06:13 EDT Start Date: 08/20/12 Status: Ordered lidocaine 5% topical film 1 patch, Topically, Daily, PRN Pain , Mild, remove after 12 hours, # 13 each, 0 Refills, Maintenance, 03/17/23 22:35:00 EDT, Film, Partial fill upon patient request if the prescription is for a schedule II opioid drug. Start Date: 03/17/23 Status: Ordered metoprolol 50 mg oral tablet, extended release 1 tablet = 50 mg, By Mouth, Daily, # 90 tablet, 3 Refills, Maintenance, 10/10/14 8:47:56, ER Tablet, 1 tablet By Mouth Daily,x90 days Start Date: 10/10/14 Stop Date: 10/05/15 Status: Ordered morphine 15 mg/8 to 12 hr oral tablet, extended release 1 tablet = 15 mg, By Mouth, Every 12 hours, # 6 tablet, 0 Refills, Maintenance, 03/20/23 11:16:00 EDT, ER Tablet, Partial fill upon patient request if the prescription is for a schedule II opioid drug. Start Date: 03/20/23 Status: Ordered nystatin topical [id number] u/gm powder 1 application, Topically, 3 times a day, # 15 Gm, 0 Refills, Maintenance, 08/29/17 8:01:58, Powder Start Date: 08/29/17 Status: Ordered OXcarbazepine 300 mg oral tablet 300 mg, 1, tablet, By Mouth, Daily at bedtime, # 120 tablet, Refills 0, Maintenance, 08/29/17 8:01:05 EDT Start Date: 08/29/17 Status: Ordered pramipexole 0.5 mg oral tablet 3 tablet = 1.5 mg, By Mouth, 2 times a day, # 90 tablet, 5 Refills, Maintenance, 03/17/23 22:34:00 EDT, Tablet, Partial fill upon patient request if the prescription is for a schedule II opioid drug. Start Date: 03/17/23 Status: Ordered pregabalin 100 mg oral capsule 1 capsule = 100 mg, By Mouth, 2 times a day, # 180 capsule, 0 Refills, Maintenance, 03/17/23 22:34:00 EDT, Capsule, Partial fill upon patient request if the prescription is for a schedule II opioid drug. Start Date: 03/17/23 Status: Ordered ProAir HFA 90 mcg/inh inhalation aerosol with adapter 2, puffs, Inhalation, 4 times a day, PRN, Refills 0, Maintenance, 04/03/16 18:36:04, Aerosol Start Date: 04/03/16 Status: Ordered sertraline 100 mg oral tablet 1.5 tablet = 150 mg, By Mouth, Daily in AM, # 30 tablet, 0 Refills, Maintenance, 10/18/21 12:11:00 EST, Tablet, Partial fill upon patient request if the prescription is for a schedule II opioid drug. Start Date: 10/18/21 Status: Ordered Problem List Condition Confirmation Course Effective Dates Status H ealth Status Informant Disc disease, degenerative, lumbar or lumbosacral Confirmed Active LBP (low back pain) Confirmed Active Severe obesity Confirmed Active Radiculopathy of thoracic region Confirmed Active Social History Social History Type Response Smoking Status Never smoker; Tobacc o user in household: No entered on: 10/23/15 Sex Patient Care team information Care Team Personnel Name: Joi Mahoney RN Position: [facility] RN Member Role: Primary Care Nurse Name: Dc Bragg III, MD Position: Reference Physician Member Role: PCP Address: Address: [address] [place] [address] [id number] Name: Moni Chan LPN Position: [facility] RN Member Role: Primary Care Nurse Name: Luly Rocha RN Position: [facility] SN Atomic Physics Teacher Member Role: Primary Care Nurse Name: Sherley Martinez RN Position: [facility] Rad RN Member Role: Primary Care Nurse Name: Butch Ware RN Position: [facility] RN Member Role: Primary Care Nurse Name: Yulisa Sommer RN Position: [facility] RN Member Role: Primary Care Nurse Name: Johnna Swanson RN Position: [facility] AMB Nurse Member Role: Primary Care Nurse Name: Chelsi Yoon RN Position: [facility] RN Member Role: Primary Care Nurse Care Team Related Persons Name: MAGDYJEREMI Address: [place] [address] Name: JEREMI VALENCIA Address: [address] [place] [address]
[2023-04-24 11:24] VITALS: BP 93/44; PULSE 61; RESP 20; TEMP 36.3; O2SAT 96; BMI 48.4
[2023-04-24] MEDS: Lactated Ringers 1,000 ML 100 ML IVCONT (11:49)
--- NOTE | 2023-04-24 12:14 | MHC.SHP ---
Pre-Procedural Eval Section A Date of Service: 04/24/23 The patient is an INPATIENT: No Changes since office visit: Yes Patient answered all questions The History & Physical has been completed within 30 days and I have reviewed it.: No Section B Chief Complaint: Pain in left hip,Unilateral primary osteoarthritis Details of Present Illness: as above Relevant Family History (Specify if Yes): No Relevant Social History: None Present Medications: None Medical History: No relevant PMH History of Previous Operations: No relevant previous surgery Allergies: Allergies Allergy/AdvReac Type Severity Reaction Status Date / Time morphine AdvReac Severe n/v Verified 01/28/23 14:54 Review of Systems Sugical H&P ROS: Negative: Cardiovascular, Respiratory, Neurological, Psychiatric, Hem-Onc, Allergic/Immunologic, Gastrointestinal, Genitourinary, Musculoskeletal, Integumentary, Endocrine and Eyes/Ears/Nose/Throat and Yes, Specify: Constitution (morbid obesity) Exam Surgical H&P Exam: Normal: HEENT, Normal: Heart, Normal: Lungs, Normal: Extremities, Normal: Skin and Normal: Neurological and Significant Findings: Abdomen (enlarged due to fat) Plan Diagnosis/Plan: Unchanged I have reviewed the history and physical and performed a pertinent physical examination on my patient. No changes have occurred unless specified. Time Spent With Patient Time: Total time managing care of this patient today ____ minutes.
--- NOTE | 2023-04-24 12:29 | W.PM.OPN ---
Operative Note Operative Note Date of Service: 04/24/23 Narrative: Left therapeutic Intra-articular hip injection. - Informed consent was explained to the patient. All questions were explained and answered.? The patient was taken inside of the operating room where she was positioned right lateral decubitus on operating table..? Time-out was performed delineating patient's name and date of , correct site, side, the nature of the procedure, patient's allergy, preoperative antibiotic if needed, need for VT prophylaxis..? All operating room staff was participating in OR time-out procedure.? Left hip area of the patient was prepped with ChloraPrep and draped with sterile towels.? Sterilely draped C-arm was brought over the operating field and picture of left and right lateral views of the bilateral hip joints were delineated on the screen.? The smaller joint silhouette was chosen as the target.? Direction of the femoral neck was noted and the projection of that direction was delineated on the skin with skin markers.? Projection of the left trochanter to the skin was chosen as the initial needle insertion point.? After that the skin and subcutaneous tissues was anesthetized with 2% lidocaine 2.5 mL.? 22 gauge 5 in long needle was inserted through the skin and started to advance to the joint space under anterior posterior view.? When needle entered the capsule of the joint small amount of the contrast was injected delineating intra-articular space.? After that treatment solution containing ropivacaine 0.5% and 40 mg of Kenalog was injected into the joint.? The needle was withdrawn sterile dressing was applied.?
[2023-04-24 13:02] VITALS: BP 101/61; PULSE 61; RESP 16; TEMP 36.3; O2SAT 97
[2023-04-24 13:17] VITALS: BP 108/58; PULSE 63; RESP 16; O2SAT 98
--- NOTE | 2023-04-24 13:19 | P.BOP_ITS ---
Brief Operative Note Date of Service: 04/24/23 Pre-op diagnosis: left hip osteoarthritis Post-op diagnosis: same Procedure: left hip steroid injection Surgeon: Tony Farnsworth MD Anesthesia: MAC Was an Marine Steam Fitter Helper used for this Procedure?: No Estimated blood loss (mL): 0 Condition: stable Disposition: PACU
[2023-04-24 13:32] VITALS: BP 112/63; PULSE 68; RESP 16; O2SAT 96
== END 2023-04-24 14:20 | disposition home or self-care (01) ==
PROVIDERS: PCP Internal Medicine; Visit Provider Anesthesiology
PROC: (CPT 20610; principal; 2023-04-24 12:20)
DX: M25.552 Pain in left hip (principal); M16.12 Unilateral primary osteoarthritis, left hip; M54.50 Low back pain, unspecified; Z96.82 Presence of neurostimulator; M53.9 Dorsopathy, unspecified; M47.816 Spondylosis without myelopathy or radiculopathy, lumbar region; G57.93 Unspecified mononeuropathy of bilateral lower limbs; M96.1 Postlaminectomy syndrome, not elsewhere classified; M35.00 Sjogren syndrome, unspecified; E66.01 Morbid (severe) obesity due to excess calories; Z68.42 Body mass index [BMI] 45.0-49.9, adult; Z98.84 Bariatric surgery status; Z98.890 Other specified postprocedural states; Z79.899 Other long term (current) drug therapy; Z88.8 Allergy status to other drugs, medicaments and biological substances
CPT/HCPCS: 20610; J2250; J3010; J3301

== ENCOUNTER 2023-05-30 09:00 | Outpatient (AMB) | payer MEDICARE, OTHER, SELFPAY ==
--- NOTE | 2023-05-30 09:02 | MHC.OFFVIS ---
Intake Vital Signs 05/30/23 09:08 Height 5 ft 6 in Weight 305 lb BMI 49.2 BP 157/93 H Blood Pressure Location Lt brachial Position Sitting Pulse 62 Pulse Source Pulse Oximeter Pulse Oximetry (%) 97 Oxygen Delivery Method Room Air Intake Visit Reasons: s/p Left Therapeutic Hip Inj 04/24/23 Intake Note: Pain today 02/10. Clarification Operator Required: No Accompanied by: Spouse Allergies morphine Adverse Reaction (Severe, Verified 05/30/23 09:08) n/v HPI HPI Comments History of Present Illness Details Patient presents today to assess response to Left Therapeutic Hip Injection on 04/24/[address] Farnsworth. Patient reports ongoing 50% pain relief since procedure and a little bit more relief during the first 2 weeks after the injection. She reports mild improvement in her daily activities, functioning and sleep. Mobility and weight bearing continues to be challenging for her due to back and left hip pain. She reports lumbar RFA effects have been fading out. Patient reports her neurologist Dr. Felix had recommendation for future injections to treat her left hip pain. Unfortunately, his recommendation notes were not communicated with our office as of today. Patient will follow up on this. At meantime, she is interested to schedule a repeat left hip therapeutic injection in July. She is undergoing sleep study with Neurology office next month and has not heard from Weight Management office yet. Denies any fever, bladder or bowel incontinence, or saddle anesthesia. Past procedures: 04/24/23: Left Therapeutic Hip Injection-ongoing 50% pain relief (05/30/23) 12/27/22: Bilateral L3-L4 DR L5 RFA- 100% pain relief for 2 weeks, 50% ongoing pain relief 12/13/22: Bilateral Diagnostic L3-L4-DR L5 MBBs-100% pain relief for 9 hours and 80% pain relief for 8 more hours. 07/09/22: Left hip intra-acrticular steroid injection-99% pain relief for 3 weeks PRIOR: Patient presents today for follow-up for back pain and left hip pain. She reports about 20% better with ongoing pain relief since lumbar medial branch RFA. Patient continues to use SCS device and reached out to Leelee at [employer] a month ago to adjust her SCS programming. She also continues to endorse significant low back pain without using her walker or standing up straight. She also has left hip pain and requests to repeat steroid injection. Patient takes Morphine ER, Oxycodone, celecoxib, cyclobenzaprine, lidocaine patches, and pregabalin with continued symptoms. Patient reports she fell on mother's Day and was evaluated in the emergency room and also seen by Orthopedics. There are plans for a left hip replacement the patient is required to lose weight. She has a history of gastric sleeve but has regained significant amount of weight. She has undergone nutrition consult without any success. She would like to follow up with [facility] medical management team for potential gastric balloon. Denies any fever, abdominal or groin pain, bladder or bowel incontinence, or saddle anesthesia. PRIOR: Patient presents today in the office to assess response to recent Bilateral L3-L4 DR L5 RFA on 12/27/[address] Farnsworth. Patient reports 100% pain relief for initial 2 weeks after procedure and ongoing about 60% pain relief. She continues to experiences lower back pain with bending, walking, standing and lifting. Patient is also presents with lower extremity swelling with leg discoloration, open and healing skin blisters over her upper and lower extremities, including on her face. She reports this is related to Sjogrens syndrome. Patient reports this causes her significant discomfort and pain and she is looking for pain management for this pain generator. She is taking Lasix for her leg swelling with mild to moderate relief. Patient was encouraged to see her friction saw operator and she states that appointment has been made. Patient also experiences left hip with groin pain and reports she is due for surgery but needs to loose significant amount of weight. She has tried cortisone injections and is not interested to repeat it at this time. Patient reports she continues to reach out to Leelee from [employer] to adjust her lumbar SCS device to gain better coverage for her back pain. Patient is interested to start formal physical therapy to address her back and left hip pain. She also takes Percocet, gabapentin, Flexeril, and Celecoxib for her pain prescribed by her PCP provider with mild pain relief. Patient presents with significant coughing and is warm to touch. She denies any recent cold, infection, fever, shortness of breaths, chest pain bladder or bowel incontinence, saddle anesthesia or other significant changes in medical history since last office visit. Patient was encouraged to follow up with her PCP or seek medical evaluation in ER or Urgent clinic. Patient reports her cough and dry mouth with dry eyes is related to Sjogrens syndrome. Past procedures: 12/27/22: Bilateral L3-L4 DR L5 RFA- 100% pain relief for 2 weeks, 60% ongoing pain relief 12/13/22: Bilateral Diagnostic L3-L4-DR L5 MBBs-100% pain relief for 9 hours and 80% pain relief for 8 more hours. 07/09/22: Left hip intra-acrticular steroid injection-99% pain relief for 3 weeks PRIOR 05/29/22 Aleshia SPEECH AND LANGUAGE ASSISTANT: Saskia is a very pleasant 56 year old female who presents today to the office today with complaints of low back and left hip pain with associated bilateral lower extremity neuropathy. She reports a long standing history of chronic back pain since her 20s which has been managed with medication as well as interventional treatment options. She was a previous patient of [facility] where she underwent multiple facet joint injections with significant alleviation in lower back symptoms with sustained relief upwards of 6-9 months. 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 She had to have extensive therapy to regain the ability to walk, she still has residual symptoms including fecal and urinary incontinence as well as weakness and neuropathy throughout BLE, L>R. She is ambulating with a walker but reports significant improvements in her ability to walk since her incident in 2016, she just reports an antalgic gait which she believes is contributing to her symptoms. She recently had a [employer] SCS placed by Dr. Pearson at [facility] with moderate improvements in her symptoms but was hoping for more relief with use. She has not seen a public health representative from [employer] since placement in 10/24. She reports pain onset was gradual, constant and rates the pain an 8-10 /10. She states the pain is interfering with sleep, activities of daily living and she cannot function normally. Previously she used to walk a one mile loop daily but has been unable to do this due to severity of pain, especially in the projection of the left hip. She notes significant weight gain since being less active. She previously had bariatric surgery with an 80 pound weight loss but has gained weight back. The patient reports the pain in terms of tissue damage as dull, heavy, aching and sore. The pain is exacerbated by sitting, standing, left hip flexion. She has been on chronic percocet for reportedly the past 35 years with diminishing effectiveness. She states she has been prescribed TID, but has recently only used it QHS, reflected in her last prescription being filled in February. She has also tried baclofen, flexeril, celebrex, gabapentin 900 mg TID, lidocaine patches with partial relief. She has attempted physical therapy, occupational therapy in the past with minimal alleviation in symptoms. She has attempted massage therapy in the past with good relief but it is not financially feasible to have continued sessions. She last had imaging of the lumbar spine through [facility] earlier this year. This imaging/report is not available today. Imaging of the left hip from 02/22 revealed moderate osteoarthritis. [facility] Medical History GERD (gastroesophageal reflux disease) HTN (hypertension) Hypothyroid Lumbar radiculitis Lumbar spondylosis Multilevel degenerative disc disease Neurodermatitis Osteoarthritis Sjogrens syndrome Surgical History History of back surgery History of sleeve gastrectomy History of surgery on left wrist Hx of cholecystectomy Hx of hysterectomy Hx of laparoscopic gastric banding Hx of sinus surgery S/P insertion of spinal cord stimulator Social History Patient Tobacco Use Status: Never used Tobacco Second Hand Smoke Exposure: No Review of Systems Const All systems reviewed & are unremarkable except as noted in HPI and below ENT Reports Normal hearing present Neuro Reports Normal hearing present and Denies confusion Psych Denies confusion Physical Exam Vital Signs: Last Vital Signs Pulse 62 05/30/23 09:08 BP 157/93 H 05/30/23 09:08 Pulse Ox 97 05/30/23 09:08 Oxygen Delivery Method Room Air 05/30/23 09:08 BMI result Body Mass Index 49.2 Const General: cooperative, no acute distress, alert and awake; No confusion Nutritional Appearance: obese morbidly obese Orientation/consciousness: patient oriented x3 and No confusion Limitations: ambulation with walker HEENT Ears: hearing grossly normal bilaterally Face and sinus: Yes normal facial exam and Yes face symmetric Eyes General: appearance normal, both eyes and all related structures Resp Effort & Inspection: normal respiratory effort, able to speak in complete sentences, no audible wheezes and no cough Cardio Jugular venous distension: no JVD Peripheral pulses: Peripheral pulses 2+ throughout (no appreciable rhythmic abnormalities) GI Inspection: Yes normal to inspection, No distended and Yes obesity Back/Spine/Pelvis Other: Able to transition from sitting to standing unassisted. Antalgic gait with mild limping, uses walker with ambulation. Mild to moderate left groin, anterior thigh pain with I/E left hip rotations. Cervical Spine: cervical ROM normal and No Cervical spine tenderness Thoracic/Lumbar Spine: thoracic and lumbar spine normal to inspection, Thoracic/lumbar spine scar(s), pain with thoraco-lumbar ROM, paraspinal muscle tenderness, thoraco-lumbar ROM limited, No thoracic spinal tenderness and lumbar spinal tenderness at L4 and at L5 Skin Other: Multiple skin blisters upper and lower extremities and face and swelling with skin discolorations in both legs which patient attributes this chronic rash to Sjogrens syndrome, sees [facility]. Neuro General: patient oriented x3, moves all extremities and No confusion Cranial nerves: Yes Normal hearing present Cognition (Neuro): normal cognition Gait exam (Neuro): Antalgic gait present and Assistive device used Motor exam (neuro): no tremor noted and Motor abnormalities not present Extrem Left lower extremity: hip/thigh Details: tenderness Location: of the hip, of the proximal upper leg and of the mid upper leg; no swelling, no ecchymosis, no crepitus and no unusual warmth Psych Appearance: grossly normal Mental Status: mental status grossly normal Speech and movement: Normal speech and movement present Affect: normal affect Attitude: cooperative Thought process: Normal thought process present Thought content: Normal thought content present Insight: Good insight present (Psych) Judgement: Good judgement present (Psych) Results Reviewed Results Reviewed: XR FEMUR, LEFT XR PELVIS 08/05/22 FINDINGS: LEFT FEMUR: There is mild loss of left hip joint space with inferior periarticular spurring. No bony fracture, periosteal thickening or bone marrow abnormality seen. The soft tissues are normal. AP PELVIS: There is mild loss of left hip joint space with periarticular spurring. No visible acute fracture or bony abnormality seen. The soft tissues are normal. The SI joints are normal. IMPRESSION: Degenerative arthritic changes left hip joint. Rest of the pelvis and left femur is unremarkable. Assessment & Plan Assessment & Plan (1) Osteoarthritis of left hip: Code(s): M16.12 - Unilateral primary osteoarthritis, left hip (2) Left hip pain: Code(s): M25.552 - Pain in left hip (3) Morbid obesity with BMI of 45.0-49.9, adult: Code(s): E66.01 - Morbid (severe) obesity due to excess calories; Z68.42 - Body mass index [BMI] 45.0-49.9, adult (4) Multilevel degenerative disc disease: Code(s): M53.9 - Dorsopathy, unspecified (5) Lumbar spondylosis: Code(s): M47.816 - Spondylosis without myelopathy or radiculopathy, lumbar region (6) Post laminectomy syndrome: Code(s): M96.1 - Postlaminectomy syndrome, not elsewhere classified Plan 1. Patient is status post left therapeutic hip injections under sedation on 04/24/23 with ongoing 50% pain relief. She reports higher pain relief during first 2 weeks after injection and is content with results. Patient continues to loose weight and awaits for initial consultation with [facility] center. 2. Tentatively schedule for repeat Left Intra-articular steroid hip injection with sedation and local after July 25, 2023 per patient's request. 3. Refill sent for topical compound pain cream via [facility] per patient's request. All questions and concerns have been answered and patient agreed with the plan. Follow up as needed. Justification for interventional therapy: ? Patient with average pain > 6/10 ? Patient has exhausted conservative therapy, NSAIDs The risks, consequences, alternatives, and benefits of various treatment options were discussed with the patient in great detail, including conservative management, injections and procedures. Patient is aware of hyperglycemic effects of steroids. Medications: Refilled diclofenac sodium 1% (Arthritis Pain (diclofenac)) Apply 1-3 grams (pumps) to the affected area 3-4 times daily. 4 grams topical QID 180 grams 3RF pain M16.12 - Unilateral primary osteoarthritis, left hip, M25.552 - Pain in left hip, M47.816 - Spondylosis without myelopathy or radiculopathy, lumbar region, M53.9 - Dorsopathy, unspecified, M96.1 - Postlaminectomy syndrome, not elsewhere classified Coding Level of Care Code Est Pt Level 3 (35768) Diagnoses Osteoarthritis of left hip M16.12 Left hip pain M25.552 Morbid obesity with BMI of 45.0-49.9, adult E66.01; Z68.42 Multilevel degenerative disc disease M53.9 Lumbar spondylosis M47.816 Post laminectomy syndrome M96.1
[2023-05-30 09:08] VITALS: BP 157/93; PULSE 62; O2SAT 97; BMI 49.2
== END 2023-05-30 09:23 | disposition home or self-care (01) ==
PROVIDERS: PCP Internal Medicine; Visit Provider Nurse Practitioner Family
DX: M16.12 Unilateral primary osteoarthritis, left hip (principal); M25.552 Pain in left hip; E66.01 Morbid (severe) obesity due to excess calories; Z68.42 Body mass index [BMI] 45.0-49.9, adult; M53.9 Dorsopathy, unspecified; M47.816 Spondylosis without myelopathy or radiculopathy, lumbar region; M96.1 Postlaminectomy syndrome, not elsewhere classified
CPT/HCPCS: 99213

== ENCOUNTER → 2023-05-30 09:00 | Outpatient (BNVA) | payer MEDICARE, OTHER, SELFPAY | PROVIDERS: PCP Internal Medicine; Visit Provider Nurse Practitioner Family | DX: M16.12 Unilateral primary osteoarthritis, left hip (principal); M25.552 Pain in left hip; M47.816 Spondylosis without myelopathy or radiculopathy, lumbar region; M53.9 Dorsopathy, unspecified; M96.1 Postlaminectomy syndrome, not elsewhere classified; E66.01 Morbid (severe) obesity due to excess calories; Z68.42 Body mass index [BMI] 45.0-49.9, adult; Z96.82 Presence of neurostimulator | CPT/HCPCS: 99212 ==

== ENCOUNTER 2023-06-13 14:54 | Outpatient (AMB) | payer MEDICARE, OTHER, SELFPAY ==
[2023-06-13 14:55] VITALS: BP 128/86; PULSE 96; O2SAT 97; BMI 46.0
--- NOTE | 2023-06-13 14:55 | A.OFFVIS_ITS ---
Intake Vital Signs 06/13/23 14:55 Height 5 ft 6 in Weight 285 lb 4 oz BMI 46.0 BP 128/86 Blood Pressure Location Rt brachial Position Sitting Pulse 96 Pulse Source Pulse Oximeter Pulse Oximetry (%) 97 Oxygen Delivery Method Room Air Intake Visit Reasons: E-BIOLOGY FACULTY MEMBER: Sleep Attacks/Narcolepsy - Confirmed Intake Note: Pt presents as a NPV for sleep attacks/Narcolepsy. Sexual Assault Nurse Required: No Allergies environmental allergies Allergy (Unknown, Verified 06/13/23 15:01) Unknown Medication List - Last Reconciled 06/13/23 by Judith Lenz CNP albuterol sulfate 90 mcg/actuation 0 mcg inhalation celecoxib 100 mg PO BID cyclobenzaprine 10 mg PO BID diclofenac sodium 1% (Arthritis Pain (diclofenac)) 4 grams topical QID estradiol (Yari) 1 patch transdermal ONCE furosemide 80 mg PO DAILY PRN hydroxyzine HCl 10 mg PO BID levothyroxine 150 mcg PO DAILY lidocaine 5% 1 patch transdermal DAILY metoprolol succinate ER 50 mg PO DAILY morphine ER 15 mg PO BID PRN omeprazole 20 mg PO DAILY oxcarbazepine 300 mg PO BID oxycodone-acetaminophen 5-325 mg 1 tab PO TID PRN pramipexole 1 mg PO TID sertraline 150 mg PO DAILY triamcinolone acetonide 0.1% appl topical HPI HPI Comments History of Present Illness Details 58 y/o female patient presents for new in-person visit for sleep consultation. Pt reports frequent sleep attack, it stared about 4-5 months ago. She was driving and falls asleep quick but she woke up in couple of seconds. It can happen several times a day, but the sleep attack does not happen often as before now. She reports snoring, frequent arousals at night and having non refreshing sleep. She feels tired all day, and sleepy. Pt reports she felt black out when has the sleep attack. Pt also states that she was confused and can't speak clearly when she wakes up. Pt had hx of POT syndrome, and evaluated by silverware washer. Pt usually does not sleep well due to body pain, only 4 hrs. She usually up all night. She used to work retail shift manager. She takes morphine 15 mg ER, hydroxyzine 10 mg, only at night. Pt denies sudden muscle weakness, vivid dream or hallucinations. She has minor headache occasionally. Pt also reports memory loss, forgetfulness. Pt reports family hx of epilepsy, she is adopted, not sure about her parents medical hx but her son has epilepsy. Sleep questionnaire: Have you ever been diagnosed with a sleep disorder? No. Have you ever had a sleep study in the past? No. Have you ever been treated for a sleep disorder? No. Do you take medications for a sleep disorder? hydroxyzine 10mg, morphine 15 mg ER and cyclobenzaprine 10 mg. Do you snore? Yes. Do you wake up gasping at night? Yes. Do you have episodes of apneas? Don't know. If yes, are they witnessed? Sleeps alone. Do you have episodes of nocturnal chest pain or dyspnea? No. Do you have difficulty initiating sleep? Yes. Do you have difficulty maintaining sleep? Yes. Do you wake up tired? Yes. Do you have headaches upon awakening? Not really. Do you wake up with dry mouth or throat? Yes. Do you have GERD? Yes. Do you have nocturia? Yes. Do you have nocturnal leg cramps? Yes. Do you have symptoms of restless legs? Yes. Do you act out your dreams? No. Sleep hygiene questionnaire: What is your usual sleep routine? N/A. Do you take naps? Not really. Is your sleep environment cool, dark, and quiet? Yes. Do you exercise? No, due to joint pain. Do you take caffeine or other stimulants? Yes, coffee in the morning. Do you use electronics in bed? Yes. What is your work schedule? N/A. Hypersomnolence questionnaire: Do you have daytime tiredness or fatigue? Yes. Do you easily fall asleep when inactive? Yes. Have you ever had episodes of sudden weakness? No. Have you ever had episodes of sudden weakness associated with strong emotions? No. PFSH Medical History (Updated 06/13/23 @ 16:05 by Judith Lenz CNP) GERD (gastroesophageal reflux disease) HTN (hypertension) Hypothyroid Lumbar radiculitis Lumbar spondylosis Multilevel degenerative disc disease Neurodermatitis Osteoarthritis Sjogrens syndrome Surgical History (Updated 06/13/23 @ 15:02 by Angely Almeida CMA) History of back surgery History of carpal tunnel release History of sleeve gastrectomy History of surgery on left wrist Hx of cholecystectomy Hx of hysterectomy Hx of laparoscopic gastric banding Hx of sinus surgery S/P insertion of spinal cord stimulator Social History (Updated 06/13/23 @ 15:03 by Angely Almeida CMA) Alcohol intake: never Patient Tobacco Use Status: Never used Tobacco Second Hand Smoke Exposure: No Review of Systems Const All systems reviewed & are unremarkable except as noted in HPI and below ENT Reports Normal hearing present Neuro Reports Normal hearing present Physical Exam Vital Signs: Last Vital Signs Pulse 96 06/13/23 14:55 BP 128/86 06/13/23 14:55 Pulse Ox 97 06/13/23 14:55 Oxygen Delivery Method Room Air 06/13/23 14:55 BMI result Body Mass Index 46.0 Const General: cooperative and tired appearing Nutritional Appearance: obese Orientation/consciousness: patient oriented x3 Limitations: ambulation with cane Neck Neck: Yes full ROM and Yes supple Resp Effort & Inspection: normal respiratory effort and able to speak in complete sentences Neuro General: patient oriented x3 and moves all extremities Cranial nerves: Yes Bilaterally intact EOM present, Yes Normal facial strength present, Yes Midline tongue present, Yes Symmetric palate elevation present, Yes Normal hearing present, Yes Ability to bilaterally rotate head present and Yes Ability to bilaterally elevate shoulders present Cognition (Neuro): normal cognition Gait exam (Neuro): Normal gait present Motor exam (neuro): 5/5 motor strength present throughout, Pronator motor function not present and no tremor noted Psych Speech and movement: Clear speech present Affect: normal affect Attitude: cooperative Assessment & Plan Assessment & Plan (1) Seizure-like activity: Code(s): R56.9 - Unspecified convulsions (2) Daytime sleepiness: Code(s): R40.0 - Somnolence (3) Restless legs syndrome: Code(s): G25.81 - Restless legs syndrome (4) Sleep attack: Code(s): G47.419 - Narcolepsy without cataplexy Plan Pt is advised to undergo in lab sleep study to assess for sleep apnea, narcolepsy, restless legs and PLMD. Will f/u with pt after study to discuss results and appropriate treatment options. Sleep hygiene education provided, having routine sleep schedule, limit electronic use before bedtime. Advised patient to undergo brain MRI and EEG to r/o seizure. Pt to call with any worsening concerns or questions. Orders: Orders MR head/brain wo con 06/13/23 R41.89 - Other symptoms and signs involving cognitive functions and awareness, R56.9 - Unspecified convulsions EEG electroencephalogram 06/13/23 R56.9 - Unspecified convulsions RT PSG in-lab sleep study 06/13/23 E66.01 - Morbid (severe) obesity due to excess calories, G25.81 - Restless legs syndrome, G47.419 - Narcolepsy without cataplexy, R40.0 - Somnolence, Z68.42 - Body mass index [BMI] 45.0-49.9, adult Coding Level of Care Code New Pt Level 4 (39929) Diagnoses Seizure-like activity R56.9 Daytime sleepiness R40.0 Restless legs syndrome G25.81 Sleep attack G47.419
== END 2023-06-13 15:49 | disposition home or self-care (01) ==
PROVIDERS: PCP Internal Medicine; Visit Provider Nurse Practitioner Family
DX: R56.9 Unspecified convulsions (principal); R40.0 Somnolence; G25.81 Restless legs syndrome; G47.419 Narcolepsy without cataplexy
CPT/HCPCS: 99204; 99214

== ENCOUNTER → 2023-06-13 14:54 | Outpatient (BNVA) | payer MEDICARE, OTHER, SELFPAY | PROVIDERS: PCP Internal Medicine; Visit Provider Nurse Practitioner Family | DX: R41.89 Other symptoms and signs involving cognitive functions and awareness (principal); R56.9 Unspecified convulsions; G47.419 Narcolepsy without cataplexy; G25.81 Restless legs syndrome; R40.0 Somnolence; E66.01 Morbid (severe) obesity due to excess calories; Z68.42 Body mass index [BMI] 45.0-49.9, adult; Z96.82 Presence of neurostimulator | CPT/HCPCS: 99202 ==

== ENCOUNTER → 2023-07-02 20:30 | Outpatient (REF) | payer MEDICARE, OTHER, SELFPAY | LOC: HO.SL 20:30 | PROVIDERS: Visit Provider Nurse Practitioner Family | DX: G47.33 Obstructive sleep apnea (adult) (pediatric) (principal); G25.81 Restless legs syndrome; G47.419 Narcolepsy without cataplexy; R40.0 Somnolence; E66.01 Morbid (severe) obesity due to excess calories; Z68.42 Body mass index [BMI] 45.0-49.9, adult | CPT/HCPCS: 95810 ==

== ENCOUNTER → 2023-07-02 22:02 | Outpatient (BNV) | payer MEDICARE, OTHER, SELFPAY | PROVIDERS: Visit Provider Psychiatry & Neurology Neurology | DX: G47.33 Obstructive sleep apnea (adult) (pediatric) (principal) | CPT/HCPCS: 95810 ==

== ENCOUNTER 2023-07-04 08:53 | Outpatient (REF) | payer MEDICARE, OTHER, SELFPAY ==
--- NOTE | 2023-07-04 08:33 | EEG_ITS ---
This is a 16 channel EEG with an EKG lead. The patient is reported awake during the tracing. Background EEG rhythm is 12 to 14 hertz 5 to 50 microvolts posteriorly and lower amplitude fast anteriorly. Patient transitioned in and out of drowsiness. Frequently, during drowsiness, left temporal sharply contoured theta range activity was noted, which at times was sharp waves. Cardiac lead did not reveal any significant abnormality. Photic stimulation was unremarkable and hyperventilation was not performed. IMPRESSION: Abnormal EEG suggestive of left temporal irritability with suspicion of partial seizure disorder. MD MARINA Hastings/BREONNA / [id number]
== END 2023-07-04 08:54 | disposition home or self-care (01) ==
LOC: HO.NEURO 08:53
PROVIDERS: PCP Internal Medicine; Visit Provider Nurse Practitioner Family
DX: R56.9 Unspecified convulsions (principal)
CPT/HCPCS: 95816

== ENCOUNTER 2023-08-18 15:03 | Outpatient (AMB) | payer MEDICARE, OTHER, SELFPAY ==
--- NOTE | 2023-08-18 15:08 | MHC.OFFVIS ---
Intake Vital Signs 08/18/23 15:19 Height 5 ft 6 in Weight 286 lb BMI 46.2 BP 132/74 Blood Pressure Location Lt brachial Position Sitting Respiration 16 Pulse 87 Pulse Source Pulse Oximeter Pulse Oximetry (%) 97 Oxygen Delivery Method Room Air Intake Visit Reasons: LEFT LEG WEAKNESS W/LUMBAR STENOSIS Allergies environmental allergies Allergy (Unknown, Verified 08/18/23 15:19) Unknown HPI HPI Comments History of Present Illness Details Patient presents today to assess response to Left Therapeutic Hip Injection on 04/24/23 and schedule another hip therapeutic steroid injection on the left. She had an appointment with me to have this injection done however she was admitted to [facility] with CSF spontaneous rhinorhea. Now she is asking me to reschedule her for the injection however she wants me to perform therapeutic bilateral intra-articular L4-5 and L5-S1 facet joint injections. I will schedule her for this procedure 1st and after that in 1 month I will schedule her for left hip injection. She reports lumbar RFA effects have been fading out. Patient reports her neurologist Dr. Felix had recommendation for future injections to treat her left hip pain. Unfortunately, his recommendation notes were not communicated with our office as of today. Patient will follow up on this. Past procedures: 04/24/23: Left Therapeutic Hip Injection-ongoing 50% pain relief (05/30/23) 12/27/22: Bilateral L3-L4 DR L5 RFA- 100% pain relief for 2 weeks, 50% ongoing pain relief 12/13/22: Bilateral Diagnostic L3-L4-DR L5 MBBs-100% pain relief for 9 hours and 80% pain relief for 8 more hours. 07/09/22: Left hip intra-acrticular steroid injection-99% pain relief for 3 weeks PRIOR: Patient presents today for follow-up for back pain and left hip pain. She reports about 20% better with ongoing pain relief since lumbar medial branch RFA. Patient continues to use SCS device and reached out to Leelee at [employer] a month ago to adjust her SCS programming. She also continues to endorse significant low back pain without using her walker or standing up straight. She also has left hip pain and requests to repeat steroid injection. Patient takes Morphine ER, Oxycodone, celecoxib, cyclobenzaprine, lidocaine patches, and pregabalin with continued symptoms. Patient reports she fell on mother's Day and was evaluated in the emergency room and also seen by Orthopedics. There are plans for a left hip replacement the patient is required to lose weight. She has a history of gastric sleeve but has regained significant amount of weight. She has undergone nutrition consult without any success. She would like to follow up with [facility] medical management team for potential gastric balloon. Denies any fever, abdominal or groin pain, bladder or bowel incontinence, or saddle anesthesia. PRIOR: Patient presents today in the office to assess response to recent Bilateral L3-L4 DR L5 RFA on 12/27/[address] Farnsworth. Patient reports 100% pain relief for initial 2 weeks after procedure and ongoing about 60% pain relief. She continues to experiences lower back pain with bending, walking, standing and lifting. Patient is also presents with lower extremity swelling with leg discoloration, open and healing skin blisters over her upper and lower extremities, including on her face. She reports this is related to Sjogrens syndrome. Patient reports this causes her significant discomfort and pain and she is looking for pain management for this pain generator. She is taking Lasix for her leg swelling with mild to moderate relief. Patient was encouraged to see her manga artist and she states that appointment has been made. Patient also experiences left hip with groin pain and reports she is due for surgery but needs to loose significant amount of weight. She has tried cortisone injections and is not interested to repeat it at this time. Patient reports she continues to reach out to Leelee from [employer] to adjust her lumbar SCS device to gain better coverage for her back pain. Patient is interested to start formal physical therapy to address her back and left hip pain. She also takes Percocet, gabapentin, Flexeril, and Celecoxib for her pain prescribed by her PCP provider with mild pain relief. Patient presents with significant coughing and is warm to touch. She denies any recent cold, infection, fever, shortness of breaths, chest pain bladder or bowel incontinence, saddle anesthesia or other significant changes in medical history since last office visit. Patient was encouraged to follow up with her PCP or seek medical evaluation in ER or Urgent clinic. Patient reports her cough and dry mouth with dry eyes is related to Sjogrens syndrome. Past procedures: 12/27/22: Bilateral L3-L4 DR L5 RFA- 100% pain relief for 2 weeks, 60% ongoing pain relief 12/13/22: Bilateral Diagnostic L3-L4-DR L5 MBBs-100% pain relief for 9 hours and 80% pain relief for 8 more hours. 07/09/22: Left hip intra-acrticular steroid injection-99% pain relief for 3 weeks PRIOR 05/29/22 lAeshia PELLETIER: Saskia is a very pleasant 56 year old female who presents today to the office today with complaints of low back and left hip pain with associated bilateral lower extremity neuropathy. She reports a long standing history of chronic back pain since her 20s which has been managed with medication as well as interventional treatment options. She was a previous patient of [facility] where she underwent multiple facet joint injections with significant alleviation in lower back symptoms with sustained relief upwards of 6-9 months. 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 She had to have extensive therapy to regain the ability to walk, she still has residual symptoms including fecal and urinary incontinence as well as weakness and neuropathy throughout BLE, L>R. She is ambulating with a walker but reports significant improvements in her ability to walk since her incident in 2015, she just reports an antalgic gait which she believes is contributing to her symptoms. She recently had a [employer] SCS placed by Dr. Pearson at [facility] with moderate improvements in her symptoms but was hoping for more relief with use. She has not seen a business services sales representative from [employer] since placement in 10/24. She reports pain onset was gradual, constant and rates the pain an 8-10 /10. She states the pain is interfering with sleep, activities of daily living and she cannot function normally. Previously she used to walk a one mile loop daily but has been unable to do this due to severity of pain, especially in the projection of the left hip. She notes significant weight gain since being less active. She previously had bariatric surgery with an 80 pound weight loss but has gained weight back. The patient reports the pain in terms of tissue damage as dull, heavy, aching and sore. The pain is exacerbated by sitting, standing, left hip flexion. She has been on chronic percocet for reportedly the past 35 years with diminishing effectiveness. She states she has been prescribed TID, but has recently only used it QHS, reflected in her last prescription being filled in February. She has also tried baclofen, flexeril, celebrex, gabapentin 900 mg TID, lidocaine patches with partial relief. She has attempted physical therapy, occupational therapy in the past with minimal alleviation in symptoms. She has attempted massage therapy in the past with good relief but it is not financially feasible to have continued sessions. She last had imaging of the lumbar spine through [facility] earlier this year. This imaging/report is not available today. Imaging of the left hip from 02/22 revealed moderate osteoarthritis. [facility] Medical History (Updated 06/13/23 @ 16:05 by Judith Lenz CNP) Neurodermatitis Sjogrens syndrome Hypothyroid GERD (gastroesophageal reflux disease) HTN (hypertension) Lumbar spondylosis Lumbar radiculitis Multilevel degenerative disc disease Osteoarthritis Surgical History (Updated 06/13/23 @ 15:02 by Angely Almeida CMA) History of carpal tunnel release History of back surgery History of sleeve gastrectomy Hx of laparoscopic gastric banding Hx of sinus surgery History of surgery on left wrist Hx of hysterectomy Hx of cholecystectomy S/P insertion of spinal cord stimulator Social History (Updated 06/13/23 @ 15:03 by Angely Almeida CMA) Alcohol intake: never Patient Tobacco Use Status: Never used Tobacco Second Hand Smoke Exposure: No Review of Systems Const All systems reviewed & are unremarkable except as noted in HPI and below ENT Reports Normal hearing present Neuro Reports Normal hearing present and Denies confusion Psych Denies confusion Physical Exam Vital Signs: Last Vital Signs Pulse 87 08/18/23 15:19 Resp 16 08/18/23 15:19 BP 132/74 08/18/23 15:19 Pulse Ox 97 08/18/23 15:19 Oxygen Delivery Method Room Air 08/18/23 15:19 BMI result Body Mass Index 46.2 Const General: cooperative, no acute distress, alert and awake; No confusion Nutritional Appearance: obese morbidly obese Orientation/consciousness: patient oriented x3 and No confusion Limitations: ambulation with walker HEENT Ears: hearing grossly normal bilaterally Face and sinus: Yes normal facial exam and Yes face symmetric Eyes General: appearance normal, both eyes and all related structures Resp Effort & Inspection: normal respiratory effort, able to speak in complete sentences, no audible wheezes and no cough Cardio Jugular venous distension: no JVD Peripheral pulses: Peripheral pulses 2+ throughout (no appreciable rhythmic abnormalities) GI Inspection: Yes normal to inspection, No distended and Yes obesity Back/Spine/Pelvis Other: Able to transition from sitting to standing unassisted. Antalgic gait with mild limping, uses walker with ambulation. Mild to moderate left groin, anterior thigh pain with I/E left hip rotations. Cervical Spine: cervical ROM normal and No Cervical spine tenderness Thoracic/Lumbar Spine: thoracic and lumbar spine normal to inspection, Thoracic/lumbar spine scar(s), pain with thoraco-lumbar ROM, paraspinal muscle tenderness, thoraco-lumbar ROM limited, No thoracic spinal tenderness and lumbar spinal tenderness at L4 and at L5 Skin Other: Multiple skin blisters upper and lower extremities and face and swelling with skin discolorations in both legs which patient attributes this chronic rash to Sjogrens syndrome, sees [facility]. Neuro General: patient oriented x3, moves all extremities and No confusion Cranial nerves: Yes Normal hearing present Cognition (Neuro): normal cognition Gait exam (Neuro): Antalgic gait present and Assistive device used Motor exam (neuro): no tremor noted and Motor abnormalities not present Extrem Left lower extremity: hip/thigh Details: tenderness Location: of the hip, of the proximal upper leg and of the mid upper leg; no swelling, no ecchymosis, no crepitus and no unusual warmth Psych Appearance: grossly normal Mental Status: mental status grossly normal Speech and movement: Normal speech and movement present Affect: normal affect Attitude: cooperative Thought process: Normal thought process present Thought content: Normal thought content present Insight: Good insight present (Psych) Judgement: Good judgement present (Psych) Results Reviewed Results Reviewed: MRI lumbar spine [facility] 07/29/2023. Findings: Mild anterolisthesis at L4-5 related to degenerative facet arthropathy. Mild retrolisthesis at L1-L2 also likely degenerative. Liver convex curvature of the lumbar spine. No fracture or suspicious marrow replacing lesion. Multilevel degenerative loss of normal disc height and signal throughout lumbar spine most prominent L1-L2 with associated degenerative discogenic endplate changes conus medullaris is normal and terminates at L1. No epidural collection is seen within the spinal canal no mass. No abnormal enhancement within the spinal canal. Paraspinal muscles are otherwise unremarkable. No paravertebral fluid collection or mass. Visualize intra-abdominal and pelvic structures are normal. Findings by level: T12-L1: No foraminal or canal stenosis. L1-L2 retrolisthesis with diffuse disc bulge and bilateral facet arthropathy. Mild foraminal stenosis bilaterally. No spinal canal stenosis. L2-L3: Bilateral facet arthropathy with diffuse disc bulge. Mild foraminal stenosis bilaterally. No spinal canal stenosis. L3-L4: Bilateral facet arthropathy with ligamentum flavum thickening. Diffuse disc bulge. Mild spinal canal stenosis. Mild foraminal stenosis bilaterally. L4-5 bilateral facet arthropathy with ligamentum flavum thickening. Diffuse disc bulge. Moderate spinal canal stenosis. No foraminal stenosis. L5-S1: Bilateral facet arthropathy, left greater than right. Small right paracentral is a annular tear and small protrusion. No foraminal canal stenosis. Assessment & Plan Assessment & Plan (1) Osteoarthritis of left hip: Code(s): M16.12 - Unilateral primary osteoarthritis, left hip (2) Left hip pain: Code(s): M25.552 - Pain in left hip (3) Morbid obesity with BMI of 45.0-49.9, adult: Code(s): E66.01 - Morbid (severe) obesity due to excess calories; Z68.42 - Body mass index [BMI] 45.0-49.9, adult (4) Multilevel degenerative disc disease: Code(s): M53.9 - Dorsopathy, unspecified (5) Lumbar spondylosis: Code(s): M47.816 - Spondylosis without myelopathy or radiculopathy, lumbar region (6) Post laminectomy syndrome: Code(s): M96.1 - Postlaminectomy syndrome, not elsewhere classified Plan 1. Patient is status post left therapeutic hip injections under sedation on 04/24/23 with ongoing 50% pain relief. She reports higher pain relief during first 2 weeks after injection and is content with results. Patient continues to loose weight and awaits for initial consultation with [facility]. 2. Patient reports that she wants to do bilateral back injection. I offered her bilateral intra-articular hip injections. She is not completely satisfied with results of the RFA. On her MRI as above there are significant arthritic changes. She reports her pain aggravation with backwards lumbar flexing and no pain aggravation with forward flexing. She does not report difficulty seating. We agreed that I will schedule her for intra-articular bilateral facet joint injections L4-L5 and L5-S1 under sedation. In 1 month After that I will perform Left Intra-articular steroid hip injection with sedation and local Justification for interventional therapy: ? Patient with average pain > 6/10 ? Patient has exhausted conservative therapy, NSAIDs The risks, consequences, alternatives, and benefits of various treatment options were discussed with the patient in great detail, including conservative management, injections and procedures. Patient is aware of hyperglycemic effects of steroids. Coding Level of Care Code Est Pt Level 4 (34699) Diagnoses Osteoarthritis of left hip M16.12 Left hip pain M25.552 Morbid obesity with BMI of 45.0-49.9, adult E66.01; Z68.42 Multilevel degenerative disc disease M53.9 Lumbar spondylosis M47.816 Post laminectomy syndrome M96.1
[2023-08-18 15:19] VITALS: BP 132/74; PULSE 87; RESP 16; O2SAT 97; BMI 46.2
== END 2023-08-18 15:46 | disposition home or self-care (01) ==
PROVIDERS: PCP Internal Medicine; Visit Provider Anesthesiology
DX: M16.12 Unilateral primary osteoarthritis, left hip (principal); M25.552 Pain in left hip; E66.01 Morbid (severe) obesity due to excess calories; Z68.42 Body mass index [BMI] 45.0-49.9, adult; M53.9 Dorsopathy, unspecified; M47.816 Spondylosis without myelopathy or radiculopathy, lumbar region; M96.1 Postlaminectomy syndrome, not elsewhere classified
CPT/HCPCS: 99214

== ENCOUNTER → 2023-08-18 15:03 | Outpatient (BNVA) | payer MEDICARE, OTHER, SELFPAY | PROVIDERS: PCP Internal Medicine; Visit Provider Anesthesiology | DX: M16.12 Unilateral primary osteoarthritis, left hip (principal); M53.9 Dorsopathy, unspecified; M47.816 Spondylosis without myelopathy or radiculopathy, lumbar region; M96.1 Postlaminectomy syndrome, not elsewhere classified; E66.01 Morbid (severe) obesity due to excess calories; Z68.41 Body mass index [BMI] 40.0-44.9, adult | CPT/HCPCS: 99212 ==

== ENCOUNTER 2023-09-17 14:27 | Outpatient (AMB) | payer MEDICARE, OTHER, SELFPAY ==
--- NOTE | 2023-09-17 14:27 | A.OFFVIS_ITS ---
Intake Vital Signs 09/17/23 14:30 Height 5 ft 6 in Weight 286 lb BMI 46.2 BP 126/74 Blood Pressure Location Rt brachial Position Sitting Intake Visit Reasons: 3m Sleep Attacks/Narcolepsy -Confirmed Intake Note: Patient presents for 3 month follow up. Patient states I've been having episodes where everything goes blurry, double vision and loosing my balance. I have a theory of what is happening. Allergies environmental allergies Allergy (Unknown, Verified 09/17/23 14:33) Unknown HPI HPI Comments History of Present Illness Details 58 y/o female patient presents for new i n-person visit for sleep consultation. The PSG sleep study result was significant for mild degree of sleep apnea. The AHI was 8/hr and oxygen jacquie was 86%. It was limited study due to the short amount of sleep and absence of REM. Advised patient to try APAP [id number] and prescription sent to [facility]. Pt had a phone call from [facility] for mask fitting, but not scheduled yet. EEG result reviewed. Abnormal EEG suggestive of left temporal irritability with suspicion of partial seizure disorder. Pt was on oxcarbazepine 300 mg BID, and increased to 600 mg BID. She states that the episode of passing out has been less frequent as before, but still happens 1-2 a week. [facility] Medical History (Updated 09/17/23 @ 15:16 by Judith Lenz CNP) Neurodermatitis Sjogrens syndrome Hypothyroid GERD (gastroesophageal reflux disease) HTN (hypertension) Lumbar spondylosis Lumbar radiculitis Multilevel degenerative disc disease Osteoarthritis Surgical History History of carpal tunnel release History of back surgery History of sleeve gastrectomy Hx of laparoscopic gastric banding Hx of sinus surgery History of surgery on left wrist Hx of hysterectomy Hx of cholecystectomy S/P insertion of spinal cord stimulator Social History Alcohol intake: never Patient Tobacco Use Status: Never used Tobacco Second Hand Smoke Exposure: No Review of Systems Const All systems reviewed & are unremarkable except as noted in HPI and below ENT Reports Normal hearing present Neuro Reports Normal hearing present Physical Exam Vital Signs: Last Vital Signs BP 126/74 09/17/23 14:30 BMI result Body Mass Index 46.2 Const General: cooperative Nutritional Appearance: obese Orientation/consciousness: patient oriented x3 Limitations: ambulation with cane Neck Neck: Yes full ROM and Yes supple Resp Effort & Inspection: normal respiratory effort and able to speak in complete sentences Neuro General: patient oriented x3 and moves all extremities Cranial nerves: Yes Bilaterally intact EOM present, Yes Normal facial strength present, Yes Midline tongue present, Yes Symmetric palate elevation present, Yes Normal hearing present, Yes Ability to bilaterally rotate head present and Yes Ability to bilaterally elevate shoulders present Cognition (Neuro): normal cognition Gait exam (Neuro): Normal gait present Motor exam (neuro): 5/5 motor strength present throughout, Pronator motor function not present and no tremor noted Psych Speech and movement: Clear speech present Affect: normal affect Attitude: cooperative Assessment & Plan Assessment & Plan (1) Seizure-like activity: Code(s): R56.9 - Unspecified convulsions (2) Sleep apnea: Comment: Mild degree of sleep apnea. The AHI was 8/hr oxygen jacquie was 86%. Code(s): G47.30 - Sleep apnea, unspecified Plan Advised patient to continue to take oxcarbazepine 600 mg BID. Advised patient to undergo 24 hr EEG. Start APAP [id number]. Stressed CPAP compliance, use CPAP nightly and more than 4hrs. Coding Level of Care Code Est Pt Level 4 (93422) Diagnoses Seizure-like activity R56.9 Sleep apnea G47.30
[2023-09-17 14:30] VITALS: BP 126/74; BMI 46.2
== END 2023-09-17 14:51 | disposition home or self-care (01) ==
PROVIDERS: PCP Internal Medicine; Visit Provider Nurse Practitioner Family
DX: R56.9 Unspecified convulsions (principal); G47.30 Sleep apnea, unspecified
CPT/HCPCS: 99214

== ENCOUNTER → 2023-09-17 14:27 | Outpatient (BNVA) | payer MEDICARE, OTHER, SELFPAY | PROVIDERS: PCP Internal Medicine; Visit Provider Nurse Practitioner Family | DX: G47.30 Sleep apnea, unspecified (principal); R56.9 Unspecified convulsions | CPT/HCPCS: 99212 ==

== ENCOUNTER 2023-10-09 10:06 | Outpatient (AMB) | payer MEDICARE, OTHER, SELFPAY ==
--- NOTE | 2023-10-09 10:17 | MHC.OFFVIS ---
Intake Vital Signs 10/09/23 10:22 Height 5 ft 6 in Weight 300 lb BMI 48.4 BP 136/68 Blood Pressure Location Rt brachial Respiration 14 Pulse 87 Pulse Source Pulse Oximeter Pulse Oximetry (%) 97 Oxygen Delivery Method Room Air Intake Visit Reasons: Follow Up/Increased back pain Allergies environmental allergies Allergy (Unknown, Verified 10/09/23 10:23) Unknown HPI HPI Comments History of Present Illness Details Saskia is back in my office with mostly lower back pain complains, her hip joints osteoarthritis is managed by the steroid injections See below. Her lower back pain appears to be more severe she reports her pain 6/10 she reports that her pain interferes with her activities of daily living and social interactions. Her insurance denied intraarticular steroid injection into the facet joints. She reported good results of injections as below but her RFA while very successful at the beginning was relatively short lived lasting 3 months only. I offered her to consider the trial of PNS Curonix bilateral at L5. To explore the possible insertion sites I sent her for the x-ray of the lumbar spine.She [facility] [employer] [facility] and I need to evaluate the position of the leads and the battery before the procedure. She also needs to pass psych eval before the trial. She has had psych eval done 1 year ago for the [employer] SCS. She will try to endorce that psych eval from prior practitioner, if not I will send her to psych eval by [facility]. Prior: She reports lumbar RFA effects have been fading out. Patient reports her neurologist Dr. Felix had recommendation for future injections to treat her left hip pain. Unfortunately, his recommendation notes were not communicated with our office as of today. Patient will follow up on this. Past procedures: 04/24/23: Left Therapeutic Hip Injection-ongoing 50% pain relief (05/30/23) 12/27/22: Bilateral L3-L4 DR L5 RFA- 100% pain relief for 2 weeks, 50% ongoing pain relief 12/13/22: Bilateral Diagnostic L3-L4-DR L5 MBBs-100% pain relief for 9 hours and 80% pain relief for 8 more hours. 07/09/22: Left hip intra-acrticular steroid injection-99% pain relief for 3 weeks She reports about 20% better with ongoing pain relief since lumbar medial branch RFA. Patient continues to use SCS device and reached out to Leelee at [employer] a month ago to adjust her SCS programming. She also continues to endorse significant low back pain without using her walker or standing up straight. She also has left hip pain and requests to repeat steroid injection. Patient takes Morphine ER, Oxycodone, celecoxib, cyclobenzaprine, lidocaine patches, and pregabalin with continued symptoms. Patient reports she fell on mother's Day and was evaluated in the emergency room and also seen by Orthopedics. There are plans for a left hip replacement the patient is required to lose weight. She has a history of gastric sleeve but has regained significant amount of weight. She has undergone nutrition consult without any success. She would like to follow up with [facility] medical management team for potential gastric balloon. Denies any fever, abdominal or groin pain, bladder or bowel incontinence, or saddle anesthesia. PRIOR: Patient presents today in the office to assess response to recent Bilateral L3-L4 DR L5 RFA on 12/27/[address] Farnsworth. Patient reports 100% pain relief for initial 2 weeks after procedure and ongoing about 60% pain relief. She continues to experiences lower back pain with bending, walking, standing and lifting. Patient is also presents with lower extremity swelling with leg discoloration, open and healing skin blisters over her upper and lower extremities, including on her face. She reports this is related to Sjogrens syndrome. Patient reports this causes her significant discomfort and pain and she is looking for pain management for this pain generator. She is taking Lasix for her leg swelling with mild to moderate relief. Patient was encouraged to see her adjunct instructor of women's studies and she states that appointment has been made. Patient also experiences left hip with groin pain and reports she is due for surgery but needs to loose significant amount of weight. She has tried cortisone injections and is not interested to repeat it at this time. Patient reports she continues to reach out to Leelee from [employer] to adjust her lumbar SCS device to gain better coverage for her back pain. Patient is interested to start formal physical therapy to address her back and left hip pain. She also takes Percocet, gabapentin, Flexeril, and Celecoxib for her pain prescribed by her PCP provider with mild pain relief. Patient presents with significant coughing and is warm to touch. She denies any recent cold, infection, fever, shortness of breaths, chest pain bladder or bowel incontinence, saddle anesthesia or other significant changes in medical history since last office visit. Patient was encouraged to follow up with her PCP or seek medical evaluation in ER or Urgent clinic. Patient reports her cough and dry mouth with dry eyes is related to Sjogrens syndrome. Past procedures: 12/27/22: Bilateral L3-L4 DR L5 RFA- 100% pain relief for 2 weeks, 60% ongoing pain relief 12/13/22: Bilateral Diagnostic L3-L4-DR L5 MBBs-100% pain relief for 9 hours and 80% pain relief for 8 more hours. 07/09/22: Left hip intra-acrticular steroid injection-99% pain relief for 3 weeks PRIOR 05/29/22 Aleshia ASSISTANT BASKETBALL COACH: Saskia is a very pleasant 56 year old female who presents today to the office today with complaints of low back and left hip pain with associated bilateral lower extremity neuropathy. She reports a long standing history of chronic back pain since her 20s which has been managed with medication as well as interventional treatment options. She was a previous patient of [facility] where she underwent multiple facet joint injections with significant alleviation in lower back symptoms with sustained relief upwards of 6-9 months. 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 She had to have extensive therapy to regain the ability to walk, she still has residual symptoms including fecal and urinary incontinence as well as weakness and neuropathy throughout BLE, L>R. She is ambulating with a walker but reports significant improvements in her ability to walk since her incident in 2016, she just reports an antalgic gait which she believes is contributing to her symptoms. She recently had a [employer] SCS placed by Dr. Pearson at [facility] with moderate improvements in her symptoms but was hoping for more relief with use. She has not seen a direct customer service representative from [employer] since placement in 10/24. She reports pain onset was gradual, constant and rates the pain an 8-10 /10. She states the pain is interfering with sleep, activities of daily living and she cannot function normally. Previously she used to walk a one mile loop daily but has been unable to do this due to severity of pain, especially in the projection of the left hip. She notes significant weight gain since being less active. She previously had bariatric surgery with an 80 pound weight loss but has gained weight back. The patient reports the pain in terms of tissue damage as dull, heavy, aching and sore. The pain is exacerbated by sitting, standing, left hip flexion. She has been on chronic percocet for reportedly the past 35 years with diminishing effectiveness. She states she has been prescribed TID, but has recently only used it QHS, reflected in her last prescription being filled in February. She has also tried baclofen, flexeril, celebrex, gabapentin 900 mg TID, lidocaine patches with partial relief. She has attempted physical therapy, occupational therapy in the past with minimal alleviation in symptoms. She has attempted massage therapy in the past with good relief but it is not financially feasible to have continued sessions. She last had imaging of the lumbar spine through [facility] earlier this year. This imaging/report is not available today. Imaging of the left hip from 02/22 revealed moderate osteoarthritis. [facility] Medical History (Updated 09/17/23 @ 15:16 by Judith Lenz CNP) Neurodermatitis Sjogrens syndrome Hypothyroid GERD (gastroesophageal reflux disease) HTN (hypertension) Lumbar spondylosis Lumbar radiculitis Multilevel degenerative disc disease Osteoarthritis Surgical History History of carpal tunnel release History of back surgery History of sleeve gastrectomy Hx of laparoscopic gastric banding Hx of sinus surgery History of surgery on left wrist Hx of hysterectomy Hx of cholecystectomy S/P insertion of spinal cord stimulator Social History Alcohol intake: never Patient Tobacco Use Status: Never used Tobacco Second Hand Smoke Exposure: No Review of Systems Const All systems reviewed & are unremarkable except as noted in HPI and below ENT Reports Normal hearing present Neuro Reports Normal hearing present and Denies confusion Psych Denies confusion Physical Exam Vital Signs: Last Vital Signs Pulse 87 10/09/23 10:22 Resp 14 10/09/23 10:22 BP 136/68 10/09/23 10:22 Pulse Ox 97 10/09/23 10:22 Oxygen Delivery Method Room Air 10/09/23 10:22 BMI result Body Mass Index 48.4 Const General: cooperative, no acute distress, alert and awake; No confusion Nutritional Appearance: obese morbidly obese Orientation/consciousness: patient oriented x3 and No confusion Limitations: ambulation with walker HEENT Ears: hearing grossly normal bilaterally Face and sinus: Yes normal facial exam and Yes face symmetric Eyes General: appearance normal, both eyes and all related structures Resp Effort & Inspection: normal respiratory effort, able to speak in complete sentences, no audible wheezes and no cough Cardio Jugular venous distension: no JVD Peripheral pulses: Peripheral pulses 2+ throughout (no appreciable rhythmic abnormalities) GI Inspection: Yes normal to inspection, No distended and Yes obesity Back/Spine/Pelvis Other: Able to transition from sitting to standing unassisted. Antalgic gait with mild limping, uses walker with ambulation. Mild to moderate left groin, anterior thigh pain with I/E left hip rotations. Cervical Spine: cervical ROM normal and No Cervical spine tenderness Thoracic/Lumbar Spine: thoracic and lumbar spine normal to inspection, Thoracic/lumbar spine scar(s), pain with thoraco-lumbar ROM, paraspinal muscle tenderness, thoraco-lumbar ROM limited, No thoracic spinal tenderness and lumbar spinal tenderness at L4 and at L5 Skin Other: Multiple skin blisters upper and lower extremities and face and swelling with skin discolorations in both legs which patient attributes this chronic rash to Sjogrens syndrome, sees [facility]. Neuro General: patient oriented x3, moves all extremities and No confusion Cranial nerves: Yes Normal hearing present Cognition (Neuro): normal cognition Gait exam (Neuro): Antalgic gait present and Assistive device used Motor exam (neuro): no tremor noted and Motor abnormalities not present Extrem Left lower extremity: hip/thigh Details: tenderness Location: of the hip, of the proximal upper leg and of the mid upper leg; no swelling, no ecchymosis, no crepitus and no unusual warmth Psych Appearance: grossly normal Mental Status: mental status grossly normal Speech and movement: Normal speech and movement present Affect: normal affect Attitude: cooperative Thought process: Normal thought process present Thought content: Normal thought content present Insight: Good insight present (Psych) Judgement: Good judgement present (Psych) Assessment & Plan Assessment & Plan (1) Spinal cord stimulator status: Code(s): Z96.89 - Presence of other specified functional implants (2) Osteoarthritis of left hip: Code(s): M16.12 - Unilateral primary osteoarthritis, left hip (3) Left hip pain: Code(s): M25.552 - Pain in left hip (4) Morbid obesity with BMI of 45.0-49.9, adult: Code(s): E66.01 - Morbid (severe) obesity due to excess calories; Z68.42 - Body mass index [BMI] 45.0-49.9, adult (5) Multilevel degenerative disc disease: Code(s): M53.9 - Dorsopathy, unspecified (6) Lumbar spondylosis: Code(s): M47.816 - Spondylosis without myelopathy or radiculopathy, lumbar region (7) Post laminectomy syndrome: Code(s): M96.1 - Postlaminectomy syndrome, not elsewhere classified Plan 1. Patient is status post left therapeutic hip injections under sedation on 04/24/23 with ongoing 50% pain relief. She reports higher pain relief during first 2 weeks after injection and is content with results. Patient continues to loose weight and awaits for initial consultation with [facility] Weight Management center. 2. Facet ijections desired by patient denied by her insurance company.PNS Curonix was offered b/l L5 PNS. 3. She needs to go for psych eval.However she had Psych eval done 1 year ago for the [employer] SCS. She will seek the endorcement of her psych eval from the prior practionioner . if not I will send her to [facility]. 4. I also want to see the x-ray position of the SCS [employer] leads and the battery in the order to plan the procedure. Justification for interventional therapy: ? Patient with average pain > 6/10 ? Patient has exhausted conservative therapy, NSAIDs The risks, consequences, alternatives, and benefits of various treatment options were discussed with the patient in great detail, including conservative management, injections and procedures. Patient is aware of hyperglycemic effects of steroids. Orders: Orders XR lumbar spine 1V 10/09/23 Z96.89 - Presence of other specified functional implants XR thoracic spine 2V 10/09/23 Z96.89 - Presence of other specified functional implants Coding Level of Care Code Est Pt Level 3 (60525) Diagnoses Spinal cord stimulator status Z96.89 Osteoarthritis of left hip M16.12 Left hip pain M25.552 Morbid obesity with BMI of 45.0-49.9, adult E66.01; Z68.42 Multilevel degenerative disc disease M53.9 Lumbar spondylosis M47.816 Post laminectomy syndrome M96.1
[2023-10-09 10:22] VITALS: BP 136/68; PULSE 87; RESP 14; O2SAT 97; BMI 48.4
== END 2023-10-09 10:43 | disposition home or self-care (01) ==
PROVIDERS: PCP Internal Medicine; Visit Provider Anesthesiology
DX: M16.12 Unilateral primary osteoarthritis, left hip (principal); M25.552 Pain in left hip; Z96.89 Presence of other specified functional implants; M53.9 Dorsopathy, unspecified; M47.816 Spondylosis without myelopathy or radiculopathy, lumbar region; E66.01 Morbid (severe) obesity due to excess calories; Z68.42 Body mass index [BMI] 45.0-49.9, adult; M96.1 Postlaminectomy syndrome, not elsewhere classified
CPT/HCPCS: 99213

== ENCOUNTER → 2023-10-09 10:06 | Outpatient (BNVA) | payer MEDICARE, OTHER, SELFPAY | PROVIDERS: PCP Internal Medicine; Visit Provider Anesthesiology | DX: M16.12 Unilateral primary osteoarthritis, left hip (principal); M25.552 Pain in left hip; M53.9 Dorsopathy, unspecified; M47.816 Spondylosis without myelopathy or radiculopathy, lumbar region; M96.1 Postlaminectomy syndrome, not elsewhere classified; E66.01 Morbid (severe) obesity due to excess calories; Z68.42 Body mass index [BMI] 45.0-49.9, adult; Z96.89 Presence of other specified functional implants | CPT/HCPCS: 99212 ==

== ENCOUNTER 2024-01-19 14:47 | Outpatient (AMB) | payer MEDICARE, OTHER, SELFPAY ==
--- NOTE | 2024-01-19 14:59 | A.OFFVIS_ITS ---
Vital Signs 01/19/24 15:11 Height 5 ft 6 in Weight 299 lb 2 oz BMI 48.3 BP 132/70 Blood Pressure Location Lt brachial Position Sitting Pulse 57 Pulse Source Pulse Oximeter Pulse Oximetry (%) 100 Oxygen Delivery Method Room Air Intake Visit Reasons: 4m for Sleep Attacks/Narcolepsy - CONF adress Intake Note: Patient presents for sleep attacks/Narcolepsy. here for EEG results and would like a new CPAP order near where she lives Allergies environmental allergies Allergy (Unknown, Verified 10/09/23 10:23) Unknown adhesives Allergy (Severe, Uncoded 01/19/24 15:09) Blister HPI Comments Details: 58 y/o female patient presents for follow up of seizure and sleep study result. The PSG sleep study result was significant for mild degree of sleep apnea. The AHI was 8/hr and oxygen jacquie was 86%. It was limited study due to the short amount of sleep and absence of REM. Advised patient to try APAP [id number] and prescription sent to [facility]. Pt had a phone call from [facility] for mask fitting, but she did not scheduled yet. EEG result reviewed. Abnormal EEG suggestive of left temporal irritability with suspicion of partial seizure disorder. Pt was on oxcarbazepine 300 mg BID, and increased to 600 mg BID. She states that the episode of passing out has been less frequent as before, but still happens 1-2 a week. The passing out episodes is very short period. She does not drive. [facility] Medical History (Updated 02/23/24 @ 08:31 by Judith Lenz CNP) Neurodermatitis Sjogrens syndrome Hypothyroid GERD (gastroesophageal reflux disease) HTN (hypertension) Lumbar spondylosis Lumbar radiculitis Multilevel degenerative disc disease Osteoarthritis Surgical History History of carpal tunnel release History of back surgery History of sleeve gastrectomy Hx of laparoscopic gastric banding Hx of sinus surgery History of surgery on left wrist Hx of hysterectomy Hx of cholecystectomy S/P insertion of spinal cord stimulator Social History (Updated 01/19/24 @ 15:11 by Shantel Roberts CMA) Housing: Apartment Alcohol intake: never Patient Tobacco Use Status: Never used Tobacco Second Hand Smoke Exposure: No Review of Systems Const All systems reviewed & are unremarkable except as noted in HPI and below ENT Reports Normal hearing present Neuro Reports Normal hearing present Physical Exam Vital Signs: Last Vital Signs Pulse 57 01/19/24 15:11 BP 132/70 01/19/24 15:11 Pulse Ox 100 01/19/24 15:11 Oxygen Delivery Method Room Air 01/19/24 15:11 BMI result Body Mass Index 48.3 Const General: cooperative Nutritional Appearance: obese Orientation/consciousness: patient oriented x3 Limitations: ambulation with cane Neck Neck: Yes full ROM and Yes supple Resp Effort & Inspection: normal respiratory effort and able to speak in complete sentences Neuro General: patient oriented x3 and moves all extremities Cranial nerves: Yes Bilaterally intact EOM present, Yes Normal facial strength present, Yes Midline tongue present, Yes Symmetric palate elevation present, Yes Normal hearing present, Yes Ability to bilaterally rotate head present and Yes Ability to bilaterally elevate shoulders present Cognition (Neuro): normal cognition Gait exam (Neuro): Normal gait present Motor exam (neuro): 5/5 motor strength present throughout, Pronator motor function not present and no tremor noted Psych Speech and movement: Clear speech present Affect: normal affect Attitude: cooperative Assessment & Plan Assessment & Plan (1) Seizure-like activity: Comment: EEG showed partial seizure activity. Code(s): R56.9 - Unspecified convulsions Category: Medical (2) Sleep apnea: Comment: Mild degree of sleep apnea. The AHI was 8/hr oxygen jacquie was 86%. Code(s): G47.30 - Sleep apnea, unspecified Category: Medical Plan Advised patient to continue to take oxcarbazepine 600 mg BID. Start APAP [id number]. Stressed CPAP compliance, use CPAP nightly and more than 4hrs.
[2024-01-19 15:11] VITALS: BP 132/70; PULSE 57; O2SAT 100; BMI 48.3
== END 2024-01-19 15:32 | disposition home or self-care (01) ==
PROVIDERS: PCP Internal Medicine; Visit Provider Nurse Practitioner Family
DX: R56.9 Unspecified convulsions (principal); G47.30 Sleep apnea, unspecified
CPT/HCPCS: 99214

== ENCOUNTER → 2024-01-19 14:47 | Outpatient (BNVA) | payer MEDICARE, OTHER, SELFPAY | PROVIDERS: PCP Internal Medicine; Visit Provider Nurse Practitioner Family | DX: G47.419 Narcolepsy without cataplexy (principal) | CPT/HCPCS: 99212 ==

== ENCOUNTER 2024-06-03 15:14 | Outpatient (AMB) | payer MEDICARE, OTHER, SELFPAY ==
--- NOTE | 2024-06-03 15:19 | A.OFFVIS_ITS ---
Vital Signs 06/03/24 15:21 Height 5 ft 6 in BP 138/82 Blood Pressure Location Rt brachial Position Sitting Respiration 16 Pulse 76 Pulse Source Pulse Oximeter Pulse Oximetry (%) 98 Oxygen Delivery Method Room Air Intake Visit Reasons: Seizures Intake Note: Pt presents to the office for 4 month follow up for sleep apnea and seizures Medical Staff Coordinator Required: No Allergies environmental allergies Allergy (Unknown, Verified 06/03/24 15:20) Unknown adhesives Allergy (Severe, Uncoded 06/03/24 15:20) Blister Medication List - Last Reconciled 06/03/24 by Dea Thomas MD albuterol sulfate 90 mcg/actuation 0 mcg inhalation celecoxib 100 mg PO BID cyclobenzaprine 10 mg PO BID diclofenac sodium 1% (Arthritis Pain (diclofenac)) 4 grams topical QID dupilumab (Dupixent) 200 mg subcut Q2W estradiol (Yari) 1 patch transdermal ONCE furosemide 80 mg PO DAILY PRN hydroxyzine HCl 10 mg PO BID levothyroxine 150 mcg PO DAILY lidocaine 5% 1 patch transdermal DAILY metoprolol succinate ER 50 mg PO DAILY morphine ER 15 mg PO BID PRN omeprazole 20 mg PO DAILY oxcarbazepine 600 mg (2 x 300 mg) PO BID 30 days oxycodone-acetaminophen 5-325 mg 1 tab PO TID PRN pramipexole 1 mg PO TID sertraline 150 mg PO DAILY triamcinolone acetonide 0.1% appl topical HPI Comments Details: 58 y/o female patient presents for follow up of seizure and sleep apnea. The PSG sleep study result was significant for mild degree of sleep apnea. The AHI was 8/hr and oxygen jacquie was 86%. It was limited study due to the short amount of sleep and absence of REM. she tried CPAP but could not sleep. Now she uses a wedge pillow and avoids supine sleep, nasal strips . No episodes of seizure like activity. Abnormal EEG suggestive of left temporal irritability with suspicion of partial seizure disorder. Pt is on oxcarbazepine 600 mg BID. she had a recent admission for lymphedema, DVT No episodes of passing out she does not drive. [facility] Medical History Neurodermatitis Sjogrens syndrome Hypothyroid GERD (gastroesophageal reflux disease) HTN (hypertension) Lumbar spondylosis Lumbar radiculitis Multilevel degenerative disc disease Osteoarthritis Surgical History History of carpal tunnel release History of back surgery History of sleeve gastrectomy Hx of laparoscopic gastric banding Hx of sinus surgery History of surgery on left wrist Hx of hysterectomy Hx of cholecystectomy S/P insertion of spinal cord stimulator Social History Housing: Apartment Alcohol intake: never Patient Tobacco Use Status: Never used Tobacco Second Hand Smoke Exposure: No Review of Systems ENT Reports Normal hearing present Neuro Reports Normal hearing present Physical Exam Vital Signs: Last Vital Signs Pulse 76 06/03/24 15:21 Resp 16 06/03/24 15:21 BP 138/82 06/03/24 15:21 Pulse Ox 98 06/03/24 15:21 Oxygen Delivery Method Room Air 06/03/24 15:21 Const General: cooperative Nutritional Appearance: obese Orientation/consciousness: patient oriented x3 Limitations: ambulation with cane Neck Neck: Yes full ROM and Yes supple Resp Effort & Inspection: normal respiratory effort and able to speak in complete sentences Neuro General: patient oriented x3 and moves all extremities Cranial nerves: Yes Bilaterally intact EOM present, Yes Normal facial strength present, Yes Midline tongue present, Yes Symmetric palate elevation present, Yes Normal hearing present, Yes Ability to bilaterally rotate head present and Yes Ability to bilaterally elevate shoulders present Cognition (Neuro): normal cognition Gait exam (Neuro): Normal gait present Psych Speech and movement: Clear speech present Affect: normal affect Attitude: cooperative Assessment & Plan Assessment & Plan (1) Seizure-like activity: Comment: EEG showed partial seizure activity. Code(s): R56.9 - Unspecified convulsions Category: Medical (2) Sleep apnea: Comment: Mild degree of sleep apnea. The AHI was 8/hr oxygen jacquie was 86%. Code(s): G47.30 - Sleep apnea, unspecified Category: Medical (3) Seizures: Code(s): R56.9 - Unspecified convulsions Plan Continue oxcarbazepine 600 mg BID. Avoid supine sleep, flonase, nasal strips . this was a counseling predominated session Medications: Refilled oxcarbazepine 600 mg (2 x 300 mg) PO BID 30 days 120 tabs 3RF Coding Level of Care Code Est Pt Level 4 (33902) Diagnoses Seizure-like activity R56.9 Sleep apnea G47.30 Seizures R56.9
[2024-06-03 15:21] VITALS: BP 138/82; PULSE 76; RESP 16; O2SAT 98
== END 2024-06-03 15:48 | disposition home or self-care (01) ==
PROVIDERS: PCP Internal Medicine; Visit Provider Psychiatry & Neurology Neurology
DX: R56.9 Unspecified convulsions (principal); G47.30 Sleep apnea, unspecified
CPT/HCPCS: 99214

== ENCOUNTER → 2024-06-03 15:14 | Outpatient (BNVA) | payer MEDICARE, OTHER, SELFPAY | PROVIDERS: PCP Internal Medicine; Visit Provider Psychiatry & Neurology Neurology | DX: R56.9 Unspecified convulsions (principal); G47.30 Sleep apnea, unspecified | CPT/HCPCS: 99212 ==

== ENCOUNTER 2025-01-03 12:36 | Outpatient (AMB) | payer MEDICARE, OTHER, SELFPAY ==
--- NOTE | 2025-01-03 12:42 | A.OFFVIS_ITS ---
Vital Signs 01/03/25 12:43 Height 5 ft 6 in Weight 305 lb BMI 49.2 BP 118/78 Blood Pressure Location Rt brachial Position Sitting Intake Visit Reasons: follow up Sleep Attacks/Narcolepsy Intake Note: patient presents for follow up for seizure like activity; CPAP was returned to [facility] Allergies environmental allergies Allergy (Unknown, Verified 01/03/25 12:44) Unknown adhesives Allergy (Severe, Uncoded 01/03/25 12:44) Blister Medication List - Last Reconciled 01/03/25 by Dea Thomas MD albuterol sulfate 90 mcg/actuation 0 mcg inhalation celecoxib 100 mg PO BID clonazepam 0.125 mg PO BEDTIME cyclobenzaprine 10 mg PO BID diclofenac sodium 1% (Arthritis Pain (diclofenac)) 4 grams topical QID dupilumab (Dupixent) 200 mg subcut Q2W estradiol (Yari) 1 patch transdermal ONCE furosemide 80 mg PO DAILY PRN hydroxyzine HCl 10 mg PO BID levothyroxine 150 mcg PO DAILY lidocaine 5% 1 patch transdermal DAILY metoprolol succinate ER 50 mg PO DAILY morphine ER 15 mg PO BID PRN omeprazole 20 mg PO DAILY oxcarbazepine 600 mg (2 x 300 mg) PO BID 30 days oxycodone-acetaminophen 5-325 mg 1 tab PO TID PRN pramipexole 1 mg PO TID sertraline 150 mg PO DAILY triamcinolone acetonide 0.1% appl topical HPI Comments Details: 59 y/o female patient presents for follow up of seizure and sleep apnea.No seizures . Her main issue is restless legs syndrome today.she has trouble falling asleep because of her restless legs. she reports both discomfort and abnormal leg cramps. SHe is on pramipexole 1mg tid . she takes gabapentin, percocet and muscle relaxant, morphine. The PSG sleep study result was significant for mild degree of sleep apnea. The AHI was 8/hr and oxygen jacquie was 86%. It was limited study due to the short amount of sleep and absence of REM. she tried CPAP but could not sleep. Now she uses a wedge pillow and avoids supine sleep, nasal strips . Abnormal EEG suggestive of left temporal irritability with suspicion of partial seizure disorder. Pt is on oxcarbazepine 600 mg BID. she had a recent admission for lymphedema, DVT No episodes of passing out she does not drive. [facility] Medical History (Updated 01/03/25 @ 13:33 by Dea Thomas MD) Restless legs syndrome (RLS) Neurodermatitis Sjogrens syndrome Hypothyroid GERD (gastroesophageal reflux disease) HTN (hypertension) Lumbar spondylosis Lumbar radiculitis Multilevel degenerative disc disease Osteoarthritis Surgical History History of carpal tunnel release History of back surgery History of sleeve gastrectomy Hx of laparoscopic gastric banding Hx of sinus surgery History of surgery on left wrist Hx of hysterectomy Hx of cholecystectomy S/P insertion of spinal cord stimulator Social History Housing: Apartment Alcohol intake: never Patient Tobacco Use Status: Never used Tobacco Second Hand Smoke Exposure: No Review of Systems ENT Reports Normal hearing present Neuro Reports Normal hearing present Physical Exam Vital Signs: Last Vital Signs BP 118/78 01/03/25 12:43 BMI result Body Mass Index 49.2 Const General: cooperative Nutritional Appearance: obese Orientation/consciousness: patient oriented x3 Limitations: ambulation with cane Neck Neck: Yes full ROM and Yes supple Resp Effort & Inspection: normal respiratory effort and able to speak in complete sentences Neuro General: patient oriented x3 and moves all extremities Cranial nerves: Yes Bilaterally intact EOM present, Yes Normal facial strength present, Yes Midline tongue present, Yes Symmetric palate elevation present, Yes Normal hearing present, Yes Ability to bilaterally rotate head present and Yes Ability to bilaterally elevate shoulders present Cognition (Neuro): normal cognition Gait exam (Neuro): Normal gait present Psych Speech and movement: Clear speech present Affect: normal affect Attitude: cooperative Assessment & Plan Assessment & Plan (1) Seizure-like activity: Comment: EEG showed partial seizure activity. Code(s): R56.9 - Unspecified convulsions Category: Medical (2) Sleep apnea: Comment: Mild degree of sleep apnea. The AHI was 8/hr oxygen jacquie was 86%. Code(s): G47.30 - Sleep apnea, unspecified Category: Medical (3) Seizures: Code(s): R56.9 - Unspecified convulsions (4) Restless legs syndrome (RLS): Code(s): G25.81 - Restless legs syndrome Category: Medical Plan Continue oxcarbazepine 600 mg BID. continue pramipexole 1mg tid gabapentin 600mg tid I will trial her on clonazepam 0.125mg qhs Avoid supine sleep, flonase, nasal strips . this was a counseling predominated session Medications: New clonazepam administer 30 minutes before bedtime 0.125 mg PO BEDTIME 30 tabs 3RF Coding Level of Care Code Est Pt Level 4 (25418) Diagnoses Seizure-like activity R56.9 Sleep apnea G47.30 Seizures R56.9 Restless legs syndrome (RLS) G25.81
[2025-01-03 12:43] VITALS: BP 118/78; BMI 49.2
--- OUTSIDE RECORDS SUMMARY | 2025-01-03 14:44 | XMS_ITS | Patient Health Record ---
[facility] Address [address] [place] [address] Care Team Providers Care Art Display Maker Name Role Phone Micah Bragg MD Primary Care Provider Mohamud Montemayor Unavailable [phone] Allergies Allergen (clinical drug ingredient) Drug/Non Drug Allergy documented on EMR Reaction Allergy Type Onset Date Status Adhesive hives Allergy Active Reason For Referral No Information Medications Medication SIG (Take, Route, Frequency, Duration) Notes Start Date End Date Status Percocet prn Not-Taking Levothyroxine Sodium 150 MCG 1 tablet in the morning on an empty stomach Orally Once a day for 30 day(s) Active Biotin Not-Taking Metoprolol Succinate 50 MG 1 capsule Orally Once a day for 30 day(s) Active Gabapentin 600 MG 1 tablet Orally Once a day for 30 day(s) Not-Taking Cyclobenzaprine HCl prn Active hydrOXYzine HCl 10 MG as directed Orally prn Active Lyrica Not-Taking Omeprazole Active Aspirin 81 MG 1 tablet Orally Once a day for 30 day(s) Not-Taking OXcarbazepine ER 600 MG 1 tablet on an empty stomach Orally twice a day for 30 days 1200 a day Active Cilostazol Not-Takin g Morphine Active Magnesium 500 MG 1 tablet with a meal Orally Once a day for 30 day(s) Not-Taking Multivitamin patches Active Vitamin C Not-Taking Dupixent Active ZyrTEC prn Active Furosemide 80 MG 1 tablet Orally Once a day for 30 day(s) prn Active Pramipexole Dihydrochloride 0.5 MG 1 tablet Orally Once a day for 30 day(s) Active Metoprolol Tartrate 10 MG 1 tablet Orally Once a day for 30 day(s) Not-Taking Gabapentin Active Sertraline HCl 100 MG 1 tablet Orally Once a day for 30 day(s) Active oxyBUTYnin Not-Takin g Immunizations Vaccine Route Administration Date Status Comme nts COVID-19 Pfizer BioNTech Vaccine Unknown 03/02/2021 Administered 1st vaccine 07/24 Social History Tobacco Use: Social History Observation Description Date Details (start date - stop date) Never Smoker NA - NA Tobacco Use/Smoking Question Answer Notes Are you a: nonsmoker Additional Findings: Tobacco Non-User Aggressive non-smoker Alcohol Screen Question Answer Notes Did you have a drink contain ing alcohol in the past year? Yes How often did you have a dri nk containing alcohol in the past year? Monthly or less (1 point) How many drinks did you have on a typical day when you were drinking in the past year? 1 or 2 drinks (0 point) How often did you have 6 or more drinks on one occasion in the past year? Never (0 point) Points 1 Interpretation Negative Tobacco use other than smoking: Question Answer Notes Are you an other tobacco user? No Problems Problem Type SNOMED Code ICD Code Onset Dates Problem Status W/U Status Risk Notes Problem 230236294 Neuropathy (G62.9) Active confirmed Problem Atherosclerosis of [place] arteries of the extremities ([id number]) Atherosclerosis of [place] artery of both lower extremities, with unspecified presence of clinical manifestation (I70.203) Active confirmed Vital Signs Blood pressure diastolic 65 mm Hg 10/21/2024 Height 5ft 7in in 10/21/2024 Blood pressure systolic 110 mm Hg 10/21/2024 Weight 280 lbs 10/21/2024 BMI 43.85 kg/m2 10/21/2024 Procedures Procedure Date Ordered Date Performed Result Body Sit e 87333-JSFJPQQ NAIL, 6 OR MORE 02/26/2024 N/A 57536-FTRP SKIN LESIONS, OVER 4 02/26/2024 N/A 29041-GGIZNGR NAIL, 6 OR MORE 05/12/2024 N/A 46367-NVEY SKIN LESIONS, OVER 4 05/12/2024 N/A 89568-ZBUWKBN NAIL, 6 OR MORE 07/21/2024 N/A 09296-CDVF SKIN LESIONS, OVER 4 07/21/2024 N/A 86166-IIKYAAU NAIL, 6 OR MORE 10/21/2024 N/A 15123-SNMI SKIN LESIONS, OVER 4 10/21/2024 N/A Encounters Encounter Location Date Provider Diagnosis [address] [address] 02/26/2024 Mohamud Leblancunier Atherosclerosis of [place] artery of both lower extremities, with unspecified presence of clinical manifestation I70.203 ; Tinea unguium B35.1 ; Pain in right toe(s) M79.674 and Pain in left toe(s) M79.[address] [address] 05/12/2024 Mohamud Koko Atherosclerosis of [place] artery of both lower extremities, with unspecified presence of clinical manifestation I70.203 ; Tinea unguium B35.1 ; Pain in right toe(s) M79.674 and Pain in left toe(s) M79.[address] [address] 07/21/2024 Mohamudelkin LeblancKoko Atherosclerosis of [place] artery of both lower extremities, with unspecified presence of clinical manifestation I70.203 ; Tinea unguium B35.1 ; Pain in right toe(s) M79.674 and Pain in left toe(s) M79.[address] [address] 10/21/2024 Mohamudelkin LeblancKoko Atherosclerosis of [place] artery of both lower extremities, with unspecified presence of clinical manifestation I70.203 ; Tinea unguium B35.1 ; Pain in right toe(s) M79.674 and Pain in left toe(s) M79.675 Assessments Encounter Date Diagnosis (ICD Code) Assessment Notes Treatment Notes Treatment Clinical Notes Section Notes 02/26/2024 Tinea unguium (ICD-10 - B35.1) 02/26/2024 Atherosclerosis of [place] artery of both lower extremities, with unspecified presence of clinical manifestation (ICD-10 - I70.203) 05/12/2024 Tinea unguium (ICD-10 - B35.1) 05/12/2024 Atherosclerosis of [place] artery of both lower extremities, with unspecified presence of clinical manifestation (ICD-10 - I70.203) 07/21/2024 Tinea unguium (ICD-10 - B35.1) 07/21/2024 Atherosclerosis of [place] artery of both lower extremities, with unspecified presence of clinical manifestation (ICD-10 - I70.203) 10/21/2024 Tinea unguium (ICD-10 - B35.1) 10/21/2024 Atherosclerosis of [place] artery of both lower extremities, with unspecified presence of clinical manifestation (ICD-10 - I70.203) 10/21/2024 Pain in right toe(s) (ICD-10 - M79.674) 05/12/2024 Pain in right toe(s) (ICD-10 - M79.674) 07/21/2024 Pain in right toe(s) (ICD-10 - M79.674) 02/26/2024 Pain in right toe(s) (ICD-10 - M79.674) 02/26/2024 Pain in left toe(s) (ICD-10 - M79.675) 07/21/2024 Pain in left toe(s) (ICD-10 - M79.675) 05/12/2024 Pain in left toe(s) (ICD-10 - M79.675) 10/21/2024 Pain in left toe(s) (ICD-10 - M79.675) Plan Of Treatment Pending Test Test Name Order Date X ray : Foot, right 2V 04/26/2013 X ray : Foot, right 3V 07/23/2023 [id number]-[id number] NAIL, 6 OR MORE 07/23/2023 64379-OABUEJC NAIL, 6 OR MORE 10/01/2023 00966-OTLNIKP NAIL, 6 OR MORE 12/18/2023 96242-YEYYWAG NAIL, 6 OR MORE 02/26/2024 04382-HEOJFTC NAIL, 6 OR MORE 05/12/2024 48226-SSNGVLJ NAIL, 6 OR MORE 07/21/2024 29172-SZUBHRH NAIL, 6 OR MORE 10/21/2024 69126-DMWL SKIN LESIONS, OVER 4 10/21/20 24 13611-IJLV SKIN LESIONS, OVER 4 07/21/20 24 77174-CZNR SKIN LESIONS, OVER 4 05/12/20 24 45781-AZFL SKIN LESIONS, OVER 4 02/26/20 24 34239-XNVB SKIN LESIONS, OVER 4 12/18/19 24 38792-NAKN SKIN LESIONS, OVER 4 10/01/20 23 16536-TJFT SKIN LESIONS, OVER 4 07/23/20 Next Appt Details Provider Name:Mohamud Sutherland , 01/26/2025 02:15:00 PM, [address], [address], [place], [address], Insurance Providers Payer Name Payer Address Payer Phone Subscriber Number Group Number Insured Name Patient Relationship to Insured Coverage Start Date Coverage End Date Medicare [facility] [employer] [address] [place] [address] [id number] Saskia Swanson Self - patient is the insured [facility] [address] [place] [phone] [id number] Saskia Swanson Self - patient is the insured Medical (General) History Medical History History ICD Code Arthritis back, hip, knee pain poor circulation reflux chicken pox joint implants/screws sinus tach Broken bones Depression Fibromyalgia Gall bladder problems Headaches Hiatal hernia nerve disorder Numbness Paralysis Psoriasis Psychiatric disorder raynauds disease Reflux Sjogren syndrome Thyroid disorder ulcer, skin - PERIGO NODULARIS Vascular phlebitis (clots) Seizure disorder Surgical History Surgery Date(Month/Year) lefy wrist surgery 1977, 1987 cyst removal-right ankle 02/2013 hiatal hernia 12/2012 sinus, septum surgery 1988 cholecystectomy 1994 hysterectomy 1996 spinal cord abscess surgery 2015 Right ankle surgery 2011 gastric sleeve 2020 left leg, vein procedure 05/2024 leg ablation, bilateral 04/2024, 05/2024 leg injections, bilateral 06/2024 Hospitalization History Reason Date(Month/Year) Urgent care- double pneumonia [facility]- thought was having a stroke
--- OUTSIDE RECORDS SUMMARY | 2025-01-03 14:44 | XMS_ITS | Encounter Summary ---
Author Organization [facility] Address [address] [place] [address] Care Team Providers Care Graphic Art Sales Representative Name Role Phone Dc Bragg MD Primary Care Provider [phone] Reason for Visit * Imaging (Routine) - Closed Specialty Diagnoses / Procedures Referred By Sumanth wen Referred To Contact Radiology Diagnoses Dysphagia, unspecified type Raspy voice Regurgitation of food History of gastric restrictive surgery Procedures XR Esophagram Austyn Chin PA [address] [address] Phone: tel: fax: [facility] [address] Scan [address] [place] [address] Phone: tel: Referral ID Status Reason Start Date Expiration Date Visits Re quested Visits Authorized [id number] Closed 10/18/2024 10/18/2025 1 1 Encounter Details Date Type Department Care Team (Latest Contact Info) Description 12/20/2024 7:50 AM EST - 12/20/2024 11:59 PM EST Hospital Encounter [facility] X[facility] [address] [place] [address] Discharge Disposition: Home or Self Care Social History Tobacco Use Types Packs/Day Years Used Date Smoking Tobacco: Never Smokeless Tobacco: Never Alcohol Use Standard Drinks/Week Comments No 0 (1 standard drink = 0.6 oz pur e alcohol) Housing Instability Answer Date Recorde d Are you worried that in the next 2 months you may not have stable housing? No 10/02/2024 Food Access & Nutrition Answer Date Rec orded Do you have access to a vari ety of food including fruits and vegetables? No 10/02/2024 Access to Healthcare Answer Date Record ed Within the last 3 months, ho w many times did you visit the emergency department for your medical care? 2 10/02/2024 Health Literacy Answer Date Recorded How often do you need to hav e someone help you when you read instructions, pamphlets, or other written material from your doctor or pharmacy? Never 10/02/2024 Caregiver: How often do you need to have someone help you when you read instructions, pamphlets, or other written material from your doctor or pharmacy? Not on file 10/02/2024 Financial Risk Answer Date Recorded How hard is it for you to pa y for the very basics like food, housing, medical care, and air conditioning / heating? Hard 10/02/2024 Transportation Answer Date Recorded Has the lack of transportati on kept you from meetings, work, or from getting things needed for daily living? Yes Has the lack of transportati on kept you from medical appointments or from getting medications? Yes 10/02/2024 Social Isolation Answer Date Recorded How often do you feel lonely or isolated from those around you? Sometimes 10/02/2024 Food Risk Answer Date Recorded Within the past 12 months we worried whether our food would run out before we got money to buy more. Often true 024 Within the past 12 months th e food we bought just didn't last and we didn't have money to get more. Sometimes true 10/02/2024 Dependent Care Answer Date Recorded Do you need help finding or paying for care for your loved ones. For example, child life specialist or elderly care for an older adult? No 10/02/2024 Education Answer Date Recorded Do you think completing more education or training, like finishing a GED, going to college, or learning a trade, would be helpful for you? No 10/02/2024 Employment and Income Answer Date Recor ded During the last four weeks, have you been actively looking for work? No 10/02/2024 Living Situation Answer Date Recorded What is your living situation? 1 12/02/2023 Comments No Sex and Gender Information Value Date Recorded Sex Assigned at Not on file Legal Sex Female 10:25 PM EST Gender Identity Not on file Sexual Orientation Not on file documented as of this encounter Medications at Time of Discharge acetaminophen (TYLENOL) 500 mg tablet Every 8 Hours 05/21/2024 albuterol HFA (PROAIR HFA ; PROVENTIL HFA ; VENTOLIN HFA) 90 mcg/actuation inhaler Inhale 2 Puffs into the lungs every 4 hours as needed for Cough, Wheezing or Shortness of Breath. 03/03/2020 aspirin 81 mg EC tablet Daily bisacodyL (DULCOLAX) 5 mg EC tablet Take 2 Tabs by mouth daily as needed. butalbital-aspiri n-caffeine (FIORINAL) 50-325-40 mg per capsule Take 1 Tab by mouth every 4 hours as needed. celecoxib (CeleBREX) 100 mg capsule Take 1 capsule by mouth twice daily 180 capsule 1 11/09/2024 cetirizine (ZyrTEC) 10 mg tablet Take 10 mg by mouth daily. chlorhexidine (PERIDEX) 0.12 % solution 10/31/2023 clotrimazole-beta methasone (LOTRISONE) 1-0.05 % cream Apply small amount ot vulva twice daily for up to 7 days 04/22/2024 cyclobenzaprine (FLEXERIL) 10 mg tablet TAKE 1 TABLET TWICE DAILY NEEDED FOR MUSCLE SPASM(S) 180 tablet 11/08/2024 DAPTOmycin in 0.9 % sod chlor 500 mg/50 mL piggyback Daily 05/21/2024 diphenhydrAMINE (BENADRYL) 25 mg capsule Take 1 capsule (25 mg total) by mouth every 6 hours as needed. estradioL (VIVELLE-DOT) 0.05 mg/[address] 1 Patch onto the skin twice a week. 12/20/2021 furosemide (LASIX) 80 mg tablet 10/19/2019 gabapentin (NEURONTIN) 600 mg tablet Three Times A Day 08/11/2019 hydrocortisone 1 % topical cream Apply 1 Applicator topically 2 times daily. Apply to the affected area (Labia) 01/26/2024 hydrOXYzine HCL (ATARAX) 10 mg tablet Take 1 tablet by mouth twice daily 180 tablet 1 11/09/2024 ketoconazole (NIZORAL) 2 % cream Apply to affected area bid 06/21/2021 Lactobacillus acidophilus 0.5 mg (100 million cell) tablet Take 1 Tablet by mouth 2 times daily. 02/04/2024 levothyroxine (SYNTHROID, LEVOTHROID) 150 mcg tablet Take 1 tablet (150 mcg total) by mouth 1 (one) time each day. Take 1 tablet by mouth daily , and on Friday and Friday take 2 tablets each day 114 tablet 1 11/25/2024 lidocaine (LIDODERM) 5 % patch APPLY 1 PATCH TOPICALLY ONE TIME DAILY. ALLOW PATCH TO REMAIN ON AREA FOR UP TO 12 HOURS IN A 24 HOUR PERIOD. 06/25/2024 LORazepam (ATIVAN) 0.5 mg tablet 04/22/2024 meloxicam (MOBIC) 7.5 mg tablet Take 1 tablet (7.5 mg total) by mouth daily as needed for pain. 11/15/2019 metoprolol succinate (TOPROL-XL) 50 mg 24 hr tablet Take 1 tablet by mouth once daily 90 tablet 11/24/2024 multivit-min/iron /folic acid/K (ADULTS MULTIVITAMIN ORAL) Take by mouth. multivitamin-min- iron-FA-vit K (Bariatric Multivitamins) 45 mg iron- 800 mcg-120 mcg capsule Take by mouth. mupirocin (BACTROBAN) 2 % ointment APPLY TO LEGS AT NIGHT 110 g 2 11/29/2024 nystatin (MYCOSTATIN) ointment Apply to are bid-tid 01/16/2024 omeprazole (PriLOSEC) [address] capsule Take 1 capsule (20 mg total) by mouth 1 (one) time each day. 08/15/2022 OXcarbazepine (TRILEPTAL) 600 mg tablet Take 1 tablet (600 mg total) by mouth 2 (two) times a day. 11/14/2023 pramipexole (MIRAPEX) 1.5 mg tablet Three Times A Day 05/18/2024 senna-docusate (PERICOLACE) 8.6-50 mg per tablet Twice A Day as needed for Constipation 05/21/2024 sertraline (ZOLOFT) 100 mg tablet Take 1.5 tablets (150 mg total) by mouth 1 (one) time each day. 07/21/2024 sulfamethoxazole- trimethoprim (BACTRIM DS,SEPTRA DS) 800-160 mg per tablet 04/18/2024 triamcinolone (KENALOG) 0.5 % cream Daily as needed for Rash 02/26/2024 zolpidem (AMBIEN) 5 mg tablet Take 5 mg by mouth every night at bedtime as needed for sleep. morphine (MS CONTIN) 15 mg 12 hr tablet Take 1 tablet (15 mg total) by mouth 2 (two) times a day. 05/26/2024 oxyCODONE-acetami nophen (PERCOCET) 10-325 mg per tablet Take 1 Tablet by mouth daily for 28 days. 05/26/2024 documented as of this encounter Discharge Disposition Disposition Code Departure Means Destination Home or Self Care documented in this encounter Plan of Treatment Upcoming Encounters Date Type Department Care Team (Late st Contact Info) Description 01/05/2025 1:00 PM EST Office Visit Adult Medicine [address] [phone] Kulwinder Moran PA [address] [place] [address] 01/17/2025 2:50 PM EDT Appointment Radiology Department - [address] [phone] 04/11/2025 1:00 PM EDT Office Visit Adult Medicine [address] [phone] Dc Bragg MD [address] [place] [address] documented as of this encounter Procedures Procedure Name Priority Date/Time Associated Diagnosis Comments XR ESOPHAGRAM Routine 12/20/2024 8:48 AM EST Dysphagia, unspecified type Raspy voice Regurgitation of food History of gastric restrictive surgery documented in this encounter Visit Diagnoses Not on filedocumented in this encounter Administered Medications Inactive Administered Medications - up to 3 most recent administrations Medication Order MAR Action Action Date Dose Rate Site barium sulfate (E-Z-DISK) tablet 700 mg 700 mg, oral, Once in imaging, Starting on Fri12/20/24 at 0848, For 1 dose, Swallow whole with 1-2 swallows of water just prior to fluoroscopic examination. Given 12/20/2024 8:51 AM EST 700 mg barium sulfate (E-Z-HD) 98 % suspension 65 mL 65 mL, oral, Once in imaging, Starting on Fri12/20/24 at 0848, For 1 dose Given 12/20/2024 8:50 AM EST 65 mL barium sulfate (E-Z-PAQUE) 96 % (w/w) suspension 90 mL 90 mL, oral, Once in imaging, Starting on Fri12/20/24 at 0848, For 1 dose Given 12/20/2024 8:50 AM EST 90 mL sod bicarb-citric ac-simeth 2.21-1.53 gram/4 gram packet 1 packet 1 packet, oral, Once, On Fri12/20/24 at 0915, For 1 dose, Dissolve the contents of a half of a packet on the back of the tongue, wash down with 15 mL of water or juice and repeat with remaining contents. Given 12/20/2024 8:50 AM EST 1 packet documented in this encounter Additional Health Concerns Assessment Noted Time PHQ-9 Depression Total Score: 0 10/02/20 24 3:23 AM EST documented as of this encounter Care Teams Graphic Art Sales Representative Relationship Specialty Start Date End Date Dc Bragg MD [address] [place] [id number] PCP - General Internal Medicine 09/02/24 documented as of this encounter
--- OUTSIDE RECORDS SUMMARY | 2025-01-03 14:44 | XMS_ITS ---
Author Organization [facility] Address [address] [place] [address] Care Team Providers Care Geodetic Surveyor Technologist Name Role Phone Micah Bragg MD Primary Care Provider Mohamud Montemayor Unavailable [phone] Allergies Allergen (clinical drug ingredient) Drug/Non Drug Allergy documented on EMR Reaction Allergy Type Onset Date Status Adhesive hives Allergy Active morphine Morphine per pt no allergy 10/01/23 Drug Allergy Active REASON FOR VISIT At Risk Footcare, Painful Nail(s) aggrevated by shoes and causing difficulty standing/walking. Medications Medication SIG (Take, Route, Frequency, Duration) Notes Start Date End Date Status hydrOXYzine HCl 10 MG as directed Orally prn Active Furosemide 80 MG 1 tablet Orally Once a day for 30 day(s) prn Active Dupixent Active Percocet prn Not-Taking oxyBUTYnin Not-Takin g Magnesium 500 MG 1 tablet with a meal Orally Once a day for 30 day(s) Not-Taking Metoprolol Tartrate 10 MG 1 tablet Orally Once a day for 30 day(s) Not-Taking Cilostazol Not-Takin g Aspirin 81 MG 1 tablet Orally Once a day for 30 day(s) Not-Taking Vitamin C Not-Taking Gabapentin 600 MG 1 tablet Orally Once a day for 30 day(s) Not-Taking Biotin Not-Taking Cyclobenzaprine HCl prn Active ZyrTEC prn Active Sertraline HCl 100 MG 1 tablet Orally Once a day for 30 day(s) Active OXcarbazepine ER 600 MG 1 tablet on an empty stomach Orally twice a day for 30 days 1200 a day Active Omeprazole Active Multivitamin patches Active Morphine Active Pramipexole Dihydrochloride 0.5 MG 1 tablet Orally Once a day for 30 day(s) Active Levothyroxine Sodium 150 MCG 1 tablet in the morning on an empty stomach Orally Once a day for 30 day(s) Active Metoprolol Succinate 50 MG 1 capsule Orally Once a day for 30 day(s) Active Lyrica Active Social History Tobacco Use: Social History Observation [...] Are you an other tobacco user? No Vital Signs Height 5ft 7in in 05/12/2024 Weight 280 lbs 05/12/2024 BMI 43.85 kg/m2 05/12/2024 Procedures Procedure Date Ordered Date Performed Result Body Sit e 44531-SLHMBIT NAIL, 6 OR MORE 05/12/2024 N/A 01380-IENT SKIN LESIONS, OVER 4 05/12/2024 N/A Encounters Encounter Location Date Provider Diagnosis [facility] [address] [address] 05/12/2024 Mohamud Sutherland Atherosclerosis of [place] artery of both lower extremities, with unspecified presence of clinical manifestation I70.203 ; Tinea unguium B35.1 ; Pain in right toe(s) M79.674 and Pain in left toe(s) M79.675 Assessments Encounter Date Diagnosis (ICD Code) Assessment Notes Treatment Notes Treatment Clinical Notes Section Notes 05/12/2024 Atherosclerosis of [place] artery of both lower extremities, with unspecified presence of clinical manifestation (ICD-10 - I70.203) 05/12/2024 Tinea unguium (ICD-10 - B35.1) 05/12/2024 Pain in right toe(s) (ICD-10 - M79.674) 05/12/2024 Pain in left toe(s) (ICD-10 - M79.675) Plan Of Treatment Pending Test Test Name Order Date 91753-BHBYKRC NAIL, 6 OR MORE 05/12/2024 53906-OUGH SKIN LESIONS, OVER 4 05/12/20 24 Next Appt Details Follow Up: prn, Reason: Provider Name:Mohamud Sutherland , 01/26/2025 02:15:00 PM, [address] , [address], [place], [address], Procedure Notes * Category Sub-Category Detail Notes Debride Nail 6-10 Nail debridement Nail debridem ent performed extensively to reduce/remove overall nail length, girth, thickness, subungual debris, and necrotic tissue, by manual and electrical means through the use of a nail nipper and/or dremel, to more viable healthy nail plate or bed tissue 1-5. Silver nitrate used for any petechial bleeding as necessary. Patient chooses, no pharmaceutical tx (67409) Keratoma Treatment Parring or Cutting o f Benign Hyperkeratotic Lesion(s) 51543 ( More than 4 Lesions ) - The Benign hyperkeratotic lesions, as described above were pared, and/or cut utilizing a sterile 15 blade, tissue nippers, and/or dremel , Q8 Progress Notes * David SWANSON MDOB:1965 (58 yo F)Acc No.[id number]:05/12/2024 Progress Note Patient:?David Swanson Provider:?Mohamud Sutherland DPM :1965???Age:58 Y???Sex:Female D ate:05/12/2024 Address:[address] [place] [address] Pcp:Micah Bragg MD Subjective: * Chief Complaints: * ???At Risk FootcarePainful N ail(s) aggrevated by shoes and causing difficulty standing/walking. * HPI: ???At Risk footcare:?Pt States Last PCP Visit:?Date?02/26/2024 * ROS:?General/Constitutional:?Nausea?denies.?Vomiting?denies.?Hunger Thirst?denies.?Loss appetite?denies.?Chills?denies.?Fatigue?denies.?Fever?denies.?Night Sweats?denies.?Unexplained weight loss?denies.?Ophthalmologic:?Blurred vision?denies.?Red eye?denies.?HEENTM:?Dentures?denies.?Dizziness?denies.?Glasses/contacts?admits.?Retinopathy?de nies.?Blurred/double vision?denies.?TMJ?denies.?Discharge/drainage?denies.?Implants?admits.?Hard of hearing denies.?Difficulty chewing/swallowing/speaking?denies.?Nose bleeds?admits.?Sore mouth?admits.?Swollen glands?denies.?Respiratory:?On Oxygen?denies.?Pneumonia/pleurisy?denies.?Bronchitis?denies.?Emphysema?denies.?C oughing?denies.?Cough blood?denies.?Shortness of breath?denies.?Wheezing?denies.?Cardiovascular:?Pacemaker?denies.?MVP?denies.?WPW?denies.?CHF?denies.?Heart attack?denies.?Septal defect?denies.?Rapid beat?admits.?Chest pain ?denies.?Atrial Fib.?denies.?Murmur/Palpitations?denies.?Gastrointestinal:?Hemorrhoids?admits.?Stomach/Abdominal pain?denies.?Dark blood stool?denies.?Irritable bowel ?admits.?Constipation?admits.?Diarrhea?denies.?Vomiting?denies.?Hematology:?Swelling?admits.?Bruising?admits.?Bleeding problem?denies.?Genitourinary:?Blood urine?denies.?Frequent/Painfu/urination/bladder control?denies.?Kidney stones?admits, denies.?Infection (UTI)?admits.?Nephropathy?denies.?Musculoskeletal:?Hammertoes?denies.?Bunions?denies.?Scoliosis/kyphosis?denies.?Muscle cramps / walking?denies.?Generalized aches and pains?denies.?Weakness?denies.?Integ.:?Jeff?denies.?Scars?denies.?Corns/calluses?admits.?Ingrown nails?admits.?Painful nails?admits.?Rashes?denies.?Neurologic:?Difficulty sleeping?admits.?Bipolar?denies.?Brain disorder?denies.?Balance trouble?admits.?Confusion?denies.?Fainting/blackouts?denies.?Headache?denies.?Tr emors?denies.? * Medical History:? * Surgical History:?lefy wrist surgery 1977, 1987cyst removal-right ankle 02/2013hiatal hernia 12/2012sinus, septum surgery 1989cholecystectomy 1995hysterectomy 1997spinal cord abscess surgery 2016Right ankle surgery 2011gastric sleeve eft leg, vein procedure 05/2024 * Hospitalization/Major Diagno stic Procedure:?Adrien santiago was having a stroke 07/2023 * Family History:?Mother: dece ased.?Father: .?Spouse: alive.? patient is adopted. * Social History:?Tobacco Use:?Tobacco Use/Smoking?Are you a:?nonsmoker ?Additional Findings: Tobacco Non-User?Aggressive non-smoker ?Tobacco use other than smoking?Are you an other tobacco user??No ???Drugs/Alcohol:?Drugs?Have you used drugs other than those for medical reasons in the past 12 months? No.?Alcohol Screen?Did you have a drink containing alcohol in the past year??Yes ?How often did you have a drink containing alcohol in the past year??Monthly or less (1 point) ?How many drinks did you have on a typical day when you were drinking in the past year??1 or 2 drinks (0 point) ?How often did you have 6 or more drinks on one occasion in the past year??Never (0 point) ?Points?1 ?Interpretation?Negative ???Miscellaneous:?no Caffeine, none. ?Children: yes. ?no Exercise, none. ?Marital status: . ?Occupation: Forging Operator/disabled. * Medications:?TakingDupixent Furosemide 80 MG Tablet 1 tablet Orally Once a day, Notes: prnhydrOXYzine HCl 10 MG Tablet as directed Orally , Notes: prnLevothyroxine Sodium 150 MCG Tablet 1 tablet in the morning on an empty stomach Orally Once a dayLyrica Metoprolol Succinate 50 MG Capsule ER 24 Hour Sprinkle 1 capsule Orally Once a dayMorphine Multivitamin , Notes: patchesOmeprazole OXcarbazepine ER 600 MG Tablet Extended Release 24 Hour 1 tablet on an empty stomach Orally twice a day, Notes: 1200 a dayPramipexole Dihydrochloride 0.5 MG Tablet 1 tablet Orally Once a daySertraline HCl 100 MG Tablet 1 tablet Orally Once a dayZyrTEC , Notes: prnCyclobenzaprine HCl prnTaking Dupixent Taking Furosemide 80 MG Tablet 1 tablet Orally Once a day, Notes: prnTaking hydrOXYzine HCl 10 MG Tablet as directed Orally , Notes: prnTaking Levothyroxine Sodium 150 MCG Tablet 1 tablet in the morning on an empty stomach Orally Once a dayTaking Lyrica Taking Metoprolol Succinate 50 MG Capsule ER 24 Hour Sprinkle 1 capsule Orally Once a dayTaking Morphine Taking Multivitamin , Notes: patchesTaking Omeprazole Taking OXcarbazepine ER 600 MG Tablet Extended Release 24 Hour 1 tablet on an empty stomach Orally twice a day, Notes: 1200 a dayTaking Pramipexole Dihydrochloride 0.5 MG Tablet 1 tablet Orally Once a dayTaking Sertraline HCl 100 MG Tablet 1 tablet Orally Once a dayTaking ZyrTEC , Notes: prnTaking Cyclobenzaprine HCl prnNot-Taking/PRNBiotin Gabapentin 600 MG Tablet 1 tablet Orally Once a dayMagnesium 500 MG Tablet 1 tablet with a meal Orally Once a dayVitamin C Aspirin 81 MG Tablet 1 tablet Orally Once a dayCilostazol Metoprolol Tartrate 10 MG Tablet 1 tablet Orally Once a dayoxyBUTYnin Percocet prnMedication List reviewed and reconciled with the patientNot-Taking/PRN Biotin Not- Taking/PRN Gabapentin 600 MG Tablet 1 tablet Orally Once a dayNot-Taking/PRN Magnesium 500 MG Tablet 1 tablet with a meal Orally Once a dayNot-Taking/PRN Vitamin C Not- Taking/PRN Aspirin 81 MG Tablet 1 tablet Orally Once a dayNot-Taking/PRN Cilostazol Not-Taking/PRN Metoprolol Tartrate 10 MG Tablet 1 tablet Orally Once a dayNot-Taking/PRN oxyBUTYnin Not-Taking/PRN Percocet prnMedication List reviewed and reconciled with the patient * Allergies:?Morphine: per pt no allergy 10/01/23Adhesive: hivesyes[Allergies Verified] Objective: * Vitals:?Ht: 5ft 7in, Wt:280, BMI:43.85, Shoe size: 10, Ht-cm: 170.18 cm, Wt-k.01 kg. * Examination: ???Vascular: ?DP PULSES:? 0/4, B/L.?PT PULSES:? 0/4, B/L.?CAPILLARY FILL TIME:? delayed, all digits, B/L.?SKIN TEMPERTURE GRADIENT OF THE LOWER EXTERMITIES:? decreased, cool to cool, proximal to distal, B/L.?HAIR GROWTH/TEXTURE/ELASTICITY/TURGOR:? decreased, B/L.?PIGMENTATION:?rubrous, B/L.?EDEMA:?3/4 , pitting , without aching pain , B/L , Leg(s) , Ankle(s) , Feet.?CLAUDICATION:?denies, B/L.?REST PAIN:?denies, B/L.?Nails: ?NAILS are:? Elongated, overgrown, dystrophic, lytic, greater than 3mm thick, discolored and friable with crumbly malodorous subungual debris, with pain on palpation, 1-5 B/L.?Dermatologic: ?SKIN FINDINGS:?Skin exam reveals Keratotic lesion(s) located at , Medial plantar , IPJ , TA , Medial plantar , IPJ , T5 , SUB MTH (s) , 1 , B/L , SUB MTH (s) , 5 , B/L , Heel(s) , B/L.? Assessment: * Assessment: 1.?Tinea unguium - B35.1?2.? Atherosclerosis of [place] artery of both lower extremities, with unspecified presence of clinical manifestation - I70.203?3.?Pain in right toe(s) - M79.674?4.?Pain in left toe(s) - M79.675? Plan: * Treatment: 2.?Atherosclerosis of [place] artery of both lower extremities, with unspecified presence of clinical manifestation?Procedure: 30620-PRIC SKIN LESIONS, OVER 4 * Procedures:?Debride Nail 6-10:?Nail debridement?Nail debridement performed extensively to reduce/remove overall nail length, girth, thickness, subungual debris, and necrotic tissue, by manual and electrical means through the use of a nail nipper and/or dremel, to more viable healthy nail plate or bed tissue 1-5. Silver nitrate used for any petechial bleeding as necessary. Patient chooses, no pharmaceutical tx (35540).?Keratoma Treatment:?Parring or Cutting of Benign Hyperkeratotic Lesion(s)?53972 ( More than 4 Lesions ) - The Benign hyperkeratotic lesions, as described above were pared, and/or cut utilizing a sterile 15 blade, tissue nippers, and/or dremel , Q8.? * Procedure Codes:?91025 DEBRI DE NAIL, 6 OR MORE, Modifiers: XS 41970 TRIM SKIN LESIONS, OVER 4, Modifiers: XS , Q8 * Follow Up:?prn * Images: * Sign off status: Completed Addendum: * ? true * Provider:?Mohamud Sutherland DPM Date:?2023 Generated for Lm de la rosa/Jazz/Emerald on:?01/03/2025 02:44 PM EST History and Physical Notes * HPI (History of Present Illness) Category Sub-Category Detail Notes Category Not es At Risk footcare Pt States Last PCP Visit: Date: 4 Examination Category Sub-Category Detail Notes Category Not es Dermatologic SKIN FINDINGS: Skin exam reveal s Keratotic lesion(s) located at , Medial plantar , IPJ , TA , Medial plantar , IPJ , T5 , SUB MTH (s) , 1 , B/L , SUB MTH (s) , 5 , B/L , Heel(s) , B/L Vascular DP PULSES (B): 0/4, B/L PT PULSES (B): 0/4, B/L CAPILLARY FILL TIME: delayed, all digits , B/L TEMPERTURE GRADIENT (C): decreased, cool to cool, proximal to distal, B/L TROPHIC CONDITION-TEXTURE/ELASTICITY/TURGOR/HAIR GROWTH (B): decreased, B/L EDEMA (C): 3/4 , pitting , with out aching pain , B/L , Leg(s) , Ankle(s) , Feet CLAUDICATION (C): denies, B/L REST PAIN: denies, B/L PIGMENTATION: rubrous, B/L Nails NAILS are: Elongated, overg rown, dystrophic, lytic, greater than 3mm thick, discolored and friable with crumbly malodorous subungual debris, with pain on palpation, 1-5 B/L
--- OUTSIDE RECORDS SUMMARY | 2025-01-03 14:44 | XMS_ITS ---
Author Organization [facility] Address [address] [place] [address] Care Team Providers Care Senior Speech Pathologist Name Role Phone Micah Bragg MD Primary Care Provider Mohamud Montemayor Unavailable [phone] Allergies Allergen (clinical drug ingredient) Drug/Non Drug Allergy documented on EMR Reaction Allergy Type Onset Date Status Adhesive hives Allergy Active REASON FOR VISIT At Risk Footcare, Painful Nail(s) aggrevated by shoes and causing difficulty standing/walking. Medications Medication SIG (Take, Route, Frequency, Duration) Notes Start Date End Date Status Gabapentin Active hydrOXYzine HCl 10 MG as directed Orally prn Active Furosemide 80 MG 1 tablet Orally Once a day for 30 day(s) prn Active Dupixent Active Levothyroxine Sodium 150 MCG 1 tablet in the morning on an empty stomach Orally Once a day for 30 day(s) Active oxyBUTYnin Not-Takin g Metoprolol Tartrate 10 MG 1 tablet Orally Once a day for 30 day(s) Not-Taking Cilostazol Not-Takin g Aspirin 81 MG 1 tablet Orally Once a day for 30 day(s) Not-Taking Percocet prn Not-Taking Cyclobenzaprine HCl prn Active Vitamin C Not-Taking Magnesium 500 MG 1 tablet with a meal Orally Once a day for 30 day(s) Not-Taking Gabapentin 600 MG 1 tablet Orally Once a day for 30 day(s) Not-Taking Biotin Not-Taking Pramipexole Dihydrochloride 0.5 MG 1 tablet Orally Once a day for 30 day(s) Active OXcarbazepine ER 600 MG 1 tablet on an empty stomach Orally twice a day for 30 days 1200 a day Active Omeprazole Active ZyrTEC prn Active Sertraline HCl 100 MG 1 tablet Orally Once a day for 30 day(s) Active Multivitamin patches Active Morphine Active Metoprolol Succinate 50 MG 1 capsule Orally Once a day for 30 day(s) Active Lyrica Not-Taking Social History Tobacco Use: Social History Observation [...] No Vital Signs Height 5ft 7in in 07/21/2024 Weight 280 lbs 07/21/2024 BMI 43.85 kg/m2 07/21/2024 Procedures Procedure Date Ordered Date Performed Result Body Sit e 14875-WLQDBCO NAIL, 6 OR MORE 07/21/2024 N/A 95422-FNTI SKIN LESIONS, OVER 4 07/21/2024 N/A Encounters Encounter Location Date Provider Diagnosis [facility] [address] [address] 07/21/2024 Mohamud Sutherland Atherosclerosis of [place] artery of both lower extremities, with unspecified presence of clinical manifestation I70.203 ; Tinea unguium B35.1 ; Pain in right toe(s) M79.674 and Pain in left toe(s) M79.675 Assessments Encounter Date Diagnosis (ICD Code) Assessment Notes Treatment Notes Treatment Clinical Notes Section Notes 07/21/2024 Atherosclerosis of [place] artery of both lower extremities, with unspecified presence of clinical manifestation (ICD-10 - I70.203) 07/21/2024 Tinea unguium (ICD-10 - B35.1) 07/21/2024 Pain in right toe(s) (ICD-10 - M79.674) 07/21/2024 Pain in left toe(s) (ICD-10 - M79.675) Plan Of Treatment Pending Test Test Name Order Date 41082-UQQHFPV NAIL, 6 OR MORE 07/21/2024 32003-BDYW SKIN LESIONS, OVER 4 07/21/20 24 Next Appt Details Follow Up: prn, Reason: Provider Name:Mohamud Sutherland , 01/26/2025 02:15:00 PM, [address] , [address], [place], [address], Procedure Notes * Category Sub-Category Detail Notes Debride Nail 6-10 Nail debridement Performance o f this nail treatment by a nonprofessional would put this patients foot and overall health at risk. Therefore, nail debridement was performed extensively to reduce/remove overall nail length, girth, thickness, subungual debris, and necrotic tissue, by manual and/or electrical means through the use of a nail nipper and/or dremel-type surface grinder, to a more viable healthy nail plate or bed tissue 6-10. Silver nitrate used for any petechial bleeding as necessary. Definitive antifungal treatment options have been reviewed and discussed with the patient. The patient chooses, no pharmaceutical tx - 97943 Keratoma Treatment Parring or Cutting o f Benign Hyperkeratotic Lesion(s) (-57) More than 4 Lesions - The Benign hyperkeratotic lesions, as described above were pared, and/or cut utilizing a sterile 15 blade, tissue nippers, and/or dremel - 94023 , Q8 Progress Notes * David SWANSON MDOB:1965 (59 yo F)Acc No.[id number]:07/21/2024 Progress Note Patient:?David Swanson Provider:?Mohamud Sutherland DPM :1965???Age:59 Y???Sex:Female D ate:07/21/2024 Address:[address] [place] [address] Pcp:Micah Bragg MD Subjective: * Chief Complaints: * ???At Risk FootcarePainful N ail(s) aggrevated by shoes and causing difficulty standing/walking. * HPI: ???At Risk footcare:?Pt States Last PCP Visit:?Date?06/28/2024 * ROS:?General/Constitutional:?Nausea?denies.?Vomiting?denies.?Hunger Thirst?denies.?Loss appetite?denies.?Chills?denies.?Fatigue?denies.?Fever?denies.?Night Sweats?denies.?Unexplained weight loss?denies.?Ophthalmologic:?Blurred [...] removal-right ankle 02/2013hiatal hernia 12/2012sinus, septum surgery 1988cholecystectomy 1995hysterectomy 1997spinal cord abscess surgery 2016Right ankle surgery 2012gastric sleeve eft leg, vein procedure 05/2024leg ablation, bilateral 04/2024, 05/2024leg injections, bilateral 06/2024 * Hospitalization/Major Diagno stic Procedure:?Genny- thought was having a stroke 07/2023 * Family [...] ?no Exercise, none. ?Marital status: . ?Occupation: Scientific Investigator/disabled. * Medications:?TakingGabapenti n Dupixent Furosemide 80 MG Tablet 1 tablet Orally Once a day, Notes: prnhydrOXYzine HCl 10 MG Tablet as directed Orally , Notes: prnLevothyroxine Sodium 150 MCG Tablet 1 tablet in the morning on an empty stomach Orally Once a dayMetoprolol Succinate 50 MG Capsule ER 24 Hour [...] a dayZyrTEC , Notes: prnCyclobenzaprine HCl prnTaking Gabapentin Taking Dupixent Taking Furosemide 80 MG Tablet 1 tablet Orally Once a day, Notes: prnTaking hydrOXYzine HCl 10 MG Tablet as directed Orally , Notes: prnTaking Levothyroxine Sodium 150 MCG Tablet 1 tablet in the morning on an empty stomach Orally Once a dayTaking Metoprolol Succinate 50 MG Capsule ER 24 [...] dayTaking ZyrTEC , Notes: prnTaking Cyclobenzaprine HCl prnNot-Taking/PRNLyrica Biotin Gabapentin 600 MG Tablet 1 tablet Orally Once a dayMagnesium 500 MG Tablet 1 tablet with a meal Orally Once a dayVitamin C Aspirin 81 MG Tablet 1 tablet Orally Once a dayCilostazol Metoprolol Tartrate 10 MG Tablet 1 tablet Orally Once a dayoxyBUTYnin Percocet prnMedication List reviewed and reconciled with the patientNot-Taking/PRN Lyrica Not-Taking/PRN Biotin Not-Taking/PRN Gabapentin 600 MG Tablet 1 tablet Orally Once a dayNot-Taking/PRN Magnesium 500 MG Tablet 1 tablet with a meal Orally Once a dayNot-Taking/PRN Vitamin C Not-Taking/PRN Aspirin 81 MG Tablet 1 tablet Orally Once a dayNot-Taking/PRN Cilostazol Not-Taking/PRN Metoprolol Tartrate 10 MG Tablet 1 tablet Orally Once a dayNot-Taking/PRN oxyBUTYnin Not-Taking/PRN Percocet prnMedication List reviewed and reconciled with the patient * Allergies:?Adhesive: tirsoe s[Allergies Verified] Objective: * Vitals:?Ht: 5ft 7in, Wt:280, BMI:43.85, Shoe size: 10, Ht-cm: 170.18 cm, Wt-k.01 kg. * Examination: ???Vascular: ?DP PULSES(B):? 0/4, B/L.?PT PULSES(B):? 0/4, B/L.?CAPILLARY FILL TIME:? delayed, all digits, B/L.?TROPHIC CONDITION-TEXTURE/ELASTICITY/TURGOR/HAIR GROWTH(B):? decreased, fragile, thin, shiny skin, with sparse to absent hair growth, B/L.?TEMPERTURE GRADIENT(C):? decreased, cool to cool, proximal to distal, B/L.?PIGMENTATION:?rubrous, B/L.?EDEMA(C):?3-4/4 , pitting , without aching pain , B/L , Leg(s) , Ankle(s) , Feet.?CLAUDICATION(C):?denies, B/L.?REST PAIN:?denies, B/L.?Nails: ?NAILS are:? Elongated, overgrown, [...] Assessment: 1.?Tinea unguium - B35.1?2.? Atherosclerosis of [place] artery of both lower extremities, with unspecified presence of clinical manifestation - I70.203?3.?Pain in right toe(s) - M79.674?4.?Pain in left toe(s) - M79.675? Plan: * Treatment: 2.?Atherosclerosis of [place] artery of both lower extremities, with unspecified presence of clinical manifestation?Procedure: 20887-TONB SKIN LESIONS, OVER 4 * Procedures:?Debride Nail 6-10:?Nail debridement?Performance of this nail treatment by a nonprofessional would put this patients foot and overall health at risk. Therefore, nail debridement was performed extensively to reduce/remove overall nail length, girth, thickness, subungual debris, and necrotic tissue, by manual and/or electrical means through the use of a nail nipper and/or dremel-type surface grinder, to a more viable healthy nail plate or bed tissue 6-10. Silver nitrate used for any petechial bleeding as necessary. Definitive antifungal treatment options have been reviewed and discussed with the patient. The patient chooses, no pharmaceutical tx - 55366.?Keratoma Treatment:?Parring or Cutting of Benign Hyperkeratotic Lesion(s)?(-57) More than 4 Lesions - The Benign hyperkeratotic lesions, as described above were pared, and/or cut utilizing a sterile 15 blade, tissue nippers, and/or dremel - 76110 , Q8.? * Procedure Codes:?03155 DEBRI DE NAIL, 6 OR MORE, Modifiers: XS 55643 TRIM SKIN LESIONS, OVER 4, Modifiers: XS , Q8 * Follow Up:?prn * Images: * Sign off status: Completed true * Provider:?Mohamud Sutherland DPM Date:?2023 Generated for Lm de la rosa/Jazz/Emerald on:?01/03/2025 02:43 PM EST History and Physical Notes * [...] distal, B/L TROPHIC CONDITION-TEXTURE/ELASTICITY/TURGOR/HAIR GROWTH (B): decreased, fragile, thin, shiny skin, wi th sparse to absent hair growth, B/L EDEMA (C): 3-4/4 , pitting , wi thout aching pain , B/L , Leg(s) , Ankle(s) , Feet CLAUDICATION (C): denies, B/L REST PAIN: denies, B/L PIGMENTATION: rubrous, B/L Nails NAILS are: Elongated, overg rown, dystrophic, lytic, greater than 3mm thick, discolored and friable with crumbly malodorous subungual debris, with pain on palpation, 1-5 B/L
--- OUTSIDE RECORDS SUMMARY | 2025-01-03 14:44 | XMS_ITS ---
[facility] Address [address] [place] [address] Care Team Providers Care Equipment Worker Name Role Phone Micah Bragg MD Primary Care Provider Mohamud Montemayor Unavailable [phone] Allergies Allergen (clinical drug ingredient) Drug/Non Drug Allergy documented on EMR Reaction Allergy Type Onset Date Status Adhesive hives Allergy Active REASON FOR VISIT At Risk Footcare, Painful Nail(s) aggrevated by shoes and causing difficulty standing/walking. Medications Medication SIG (Take, Route, Frequency, Duration) Notes Start Date End Date Status Omeprazole Active OXcarbazepine ER 600 MG 1 tablet on an empty stomach Orally twice a day for 30 days 1200 a day Active ZyrTEC prn Active Pramipexole Dihydrochloride 0.5 MG 1 tablet Orally Once a day for 30 day(s) Active Sertraline HCl 100 MG 1 tablet Orally Once a day for 30 day(s) Active Morphine Active Multivitamin patches Active Levothyroxine Sodium 150 MCG 1 tablet in the morning on an empty stomach Orally Once a day for 30 day(s) Active Metoprolol Succinate 50 MG 1 capsule Orally Once a day for 30 day(s) Active hydrOXYzine HCl 10 MG as directed Orally prn Active Dupixent Active Furosemide 80 MG 1 tablet Orally Once a day for 30 day(s) prn Active Gabapentin Active oxyBUTYnin Not-Takin g Percocet prn Not-Taking Aspirin 81 MG 1 tablet Orally Once a day for 30 day(s) Not-Taking Cilostazol Not-Takin g Magnesium 500 MG 1 tablet with a meal Orally Once a day for 30 day(s) Not-Taking Vitamin C Not-Taking Metoprolol Tartrate 10 MG 1 tablet Orally Once a day for 30 day(s) Not-Taking Biotin Not-Taking Gabapentin 600 MG 1 tablet Orally Once a day for 30 day(s) Not-Taking Cyclobenzaprine HCl prn Active Lyrica Not-Taking Social History Tobacco Use: [...] No Vital Signs Height 5ft 7in in 10/21/2024 Weight 280 lbs 10/21/2024 BMI 43.85 kg/m2 10/21/2024 Blood pressure systolic 110 mm Hg 10/21/20 24 Blood pressure diastolic 65 mm Hg 024 Procedures Procedure Date Ordered Date Performed Result Body Sit e 55412-WVFVGAR NAIL, 6 OR MORE 10/21/2024 N/A 26643-DJDO SKIN LESIONS, OVER 4 10/21/2024 N/A Encounters Encounter Location Date Provider Diagnosis [facility] [place] [address] [place] [id number] 10/21/2024 Mohamud Sutherland Atherosclerosis of [place] artery of both lower extremities, with unspecified presence of clinical manifestation I70.203 ; Tinea unguium B35.1 ; Pain in right toe(s) M79.674 and Pain in left toe(s) M79.675 Assessments Encounter Date Diagnosis (ICD Code) Assessment Notes Treatment Notes Treatment Clinical Notes Section Notes 10/21/2024 Atherosclerosis of [place] artery of both lower extremities, with unspecified presence of clinical manifestation (ICD-10 - I70.203) 10/21/2024 Tinea unguium (ICD-10 - B35.1) 10/21/2024 Pain in right toe(s) (ICD-10 - M79.674) 10/21/2024 Pain in left toe(s) (ICD-10 - M79.675) Plan Of Treatment Pending Test Test Name Order Date 11939-JQFOPER NAIL, 6 OR MORE 10/21/2024 20821-UZWA SKIN LESIONS, OVER 4 10/21/20 24 Next Appt Details Follow Up: prn, Reason: Provider Name:Mohamud Sutherland , 01/26/2025 02:15:00 PM, [address] , [address], [place], [address], Procedure Notes * Category Sub-Category Detail Notes Debride Nail 6-10 Nail debridement Due to the cl inical pathology outlined in the exam findings, performance of this nail treatment is medically necessary as its management by an unskilled/untrained nonprofessional would put this patients foot and overall health at risk. Therefore, debridement to affected nail(s), as described in exam ( TA, T1, T2, T3, T4, T5, T6, T7, T8, T9), was performed exclusively by the physician of record to reduce/remove overall nail length, girth, thickness, subungual debris, and necrotic tissue, by manual and/or electrical means through the use of a nail nipper and/or dremel-type external grinder, to a more viable healthy nail plate or bed tissue 6-10 nails in total. Silver nitrate was used for any petechial bleeding as necessary. Definitive antifungal treatment options, both pharmaceutical and surgical, have been reviewed and discussed with the patient. The patient solely prefers the use of intermittent/as needed professional debridement services for their nail condition and understands the need for additional periodic treatments to maintain effectiveness in symptomatic relief - Keratoma Treatment Parring or Cutting o f Benign Hyperkeratotic Lesion(s) (-57) More than 4 Lesions - Due to the at risk nature of the patients medical condition as documented in the exam findings, performance of this keratoderma treatment is medically necessary as its management by an unskilled/untrained nonprofessional would put this patients foot and overall health at risk. Therefore, the benign hyperkeratotic lesions, ( 8) in total, locations as stated and described in the exam ( Medial plantar , IPJ , TA , Medial plantar , IPJ , T5 , SUB MTH (s) , 1 , B/L , SUB MTH (s) , 5 , B/L , Plantar, Heel(s) , B/L), were pared, and/or cut utilizing a sterile 15 blade, tissue nippers, and/or power dremel instrumentation by the physician of record - 28219, Q8 Progress Notes * David SWANSON MDOB:1965 (59 yo F)Acc No.[id number]:10/21/2024 Progress Note Patient:?David SWANSON Provider:?Mohamud Sutherland DPM :1965???Age:59 Y???Sex:Female D ate:10/21/2024 Address:[address] [place] [address] Pcp:Micah Bragg MD Subjective: * Chief Complaints: * ???At Risk FootcarePainful N ail(s) aggrevated by shoes and causing difficulty standing/walking. * HPI: ???At Risk footcare:?Pt States Last PCP Visit:?Date?09/29/2024 * ROS:?General/Constitutional:?Nausea?denies.?Vomiting?denies.?Hunger Thirst?denies.?Loss appetite?denies.?Chills?denies.?Fatigue?denies.?Fever?denies.?Night Sweats?denies.?Unexplained weight loss?denies.?Ophthalmologic:?Blurred [...] stic Procedure:?Genny- thought was having a stroke 07/2023Urgent care- double pneumonia * Family History:?Mother: dece ased.?Father: .?Spouse: alive.? [...] the past year??Never (0 point) ?Points?1 ?Interpretation?Negative ???Miscellaneous:?Caffeine: no, none. ?Children: yes. ?Exercise: no, none. ?Marital status: . ?Occupation: College Admissions Counselor/disabled. * Medications:?TakingGabapenti n Dupixent Furosemide 80 MG Tablet 1 tablet Orally Once a day , Notes to Pharmacist: prnhydrOXYzine HCl 10 MG Tablet as directed Orally , Notes to Pharmacist: prnLevothyroxine Sodium 150 MCG Tablet 1 tablet in the morning on an empty stomach Orally Once a day Metoprolol Succinate 50 MG Capsule ER 24 Hour Sprinkle 1 capsule Orally Once a day Morphine Multivitamin , Notes to Pharmacist: patchesOmeprazole OXcarbazepine ER 600 MG Tablet Extended Release 24 Hour 1 tablet on an empty stomach Orally twice a day , Notes to Pharmacist: 1200 a dayPramipexole Dihydrochloride 0.5 MG Tablet 1 tablet Orally Once a day Sertraline HCl 100 MG Tablet 1 tablet Orally Once a day ZyrTEC , Notes to Pharmacist: prnCyclobenzaprine HCl prn Taking Gabapentin Taking Dupixent Taking Furosemide 80 MG Tablet 1 tablet Orally Once a day , Notes to Pharmacist: prnTaking hydrOXYzine HCl 10 MG Tablet as directed Orally , Notes to Pharmacist: prnTaking Levothyroxine Sodium 150 MCG Tablet 1 tablet in the morning on an empty stomach Orally Once a day Taking Metoprolol Succinate 50 MG Capsule ER 24 Hour Sprinkle 1 capsule Orally Once a day Taking Morphine Taking Multivitamin , Notes to Pharmacist: patchesTaking Omeprazole Taking OXcarbazepine ER 600 MG Tablet Extended Release 24 Hour 1 tablet on an empty stomach Orally twice a day , Notes to Pharmacist: 1200 a dayTaking Pramipexole Dihydrochloride 0.5 MG Tablet 1 tablet Orally Once a day Taking Sertraline HCl 100 MG Tablet 1 tablet Orally Once a day Taking ZyrTEC , Notes to Pharmacist: prnTaking Cyclobenzaprine HCl prn Not-Taking/PRNLyrica Biotin Gabapentin 600 MG Tablet 1 tablet Orally Once a day Magnesium 500 MG Tablet 1 tablet with a meal Orally Once a day Vitamin C Aspirin 81 MG Tablet 1 tablet Orally Once a day Cilostazol Metoprolol Tartrate 10 MG Tablet 1 tablet Orally Once a day oxyBUTYnin Percocet prn Medication List reviewed and reconciled with the patientNot-Taking/PRN Lyrica Not-Taking/PRN Biotin Not- Taking/PRN Gabapentin 600 MG Tablet 1 tablet Orally Once a day Not-Taking/PRN Magnesium 500 MG Tablet 1 tablet with a meal Orally Once a day Not-Taking/PRN Vitamin C Not- Taking/PRN Aspirin 81 MG Tablet 1 tablet Orally Once a day Not-Taking/PRN Cilostazol Not-Taking/PRN Metoprolol Tartrate 10 MG Tablet 1 tablet Orally Once a day Not-Taking/PRN oxyBUTYnin Not-Taking/PRN Percocet prn Medication List reviewed and reconciled with the patient * Allergies:?Adhesive: elaine kiran[Allergies Verified] Objective: * Vitals:?Ht: 5ft 7in, Wt:280, BMI:43.85, Shoe size: 10, BP:110/65mm Hg, Ht-cm: 170.18 cm, Wt-k.01 kg. * Examination: ???Vascular: ?DP PULSES (B):? 0/4, B/L.?PT PULSES (B):? 0/4, B/L.?CAPILLARY FILL TIME:? delayed, all digits, B/L.?TROPHIC CONDITION-TEXTURE/ELASTICITY/TURGOR/HAIR GROWTH (B):? decreased, fragile, thin, shiny skin, with sparse to absent hair growth, B/L.?TEMPERTURE GRADIENT (C):? decreased, cool to cool, proximal to distal, B/L.?PIGMENTATION:?rubrous, B/L.?EDEMA (C):?3-4/4 , pitting , without aching pain , B/L , Leg(s) , Ankle(s) , Feet.?CLAUDICATION (C):?denies, B/L.?REST PAIN:?denies, B/L.?Nails: ?NAILS are:? Elongated, overgrown, dystrophic, lytic, greater than 3mm thick, discolored and friable with crumbly malodorous subungual debris, with pain on palpation,?TA, T1, T2, T3, T4, T5, T6, T7, T8, T9.?Dermatologic: ?SKIN FINDINGS:?Skin exam reveals Keratotic lesion(s) located at , Medial plantar , IPJ , TA , Medial plantar , IPJ , T5 , SUB MTH (s) , 1 , B/L , SUB MTH (s) , 5 , B/L , Plantar, Heel(s) , B/L.? Assessment: * Assessment: 1.?Tinea unguium - B35.1???2 .?Atherosclerosis of [place] artery of both lower extremities, with unspecified presence of clinical manifestation - I70.203 (Primary)???3.?Pain in right toe(s) - M79.674???4.?Pain in left toe(s) - M79.675??? Plan: * Treatment: 2.?Tinea unguium?Procedure: [id number]-MXWYCUA NAIL, 6 OR MORE * Procedures:?Debride Nail 6-10:?Nail debridement?Due to the clinical pathology outlined in the exam findings, performance of this nail treatment is medically necessary as its management by an unskilled/untrained nonprofessional would put this patients foot and overall health at risk. Therefore, debridement to affected nail(s), as described in exam (?TA, T1, T2, T3, T4, T5, T6, T7, T8, T9), was performed exclusively by the physician of record to reduce/remove overall nail length, girth, thickness, subungual debris, and necrotic tissue, by manual and/or electrical means through the use of a nail nipper and/or dremel-type external grinder, to a more viable healthy nail plate or bed tissue 6- 10 nails in total. Silver nitrate was used for any petechial bleeding as necessary. Definitive antifungal treatment options, both pharmaceutical and surgical, have been reviewed and discussed with the patient. The patient solely prefers the use of intermittent/as needed professional debridement services for their nail condition and understands the need for additional periodic treatments to maintain effectiveness in symptomatic relief - 34817.?Keratoma Treatment:?Parring or Cutting of Benign Hyperkeratotic Lesion(s)?(-57) More than 4 Lesions - Due to the at risk nature of the patients medical condition as documented in the exam findings, performance of this keratoderma treatment is medically necessary as its management by an unskilled/untrained nonprofessional would put this patients foot and overall health at risk. Therefore, the benign hyperkeratotic lesions, ( 8) in total, locations as stated and described in the exam (?Medial plantar?,?IPJ?,?TA?,?Medial plantar?,?IPJ?,?T5?,?SUB MTH (s)?,?1?,?B/L?,?SUB MTH (s)?,?5?,?B/L?,?Plantar,?Heel(s)?,?B/L), were pared, and/or cut utilizing a sterile 15 blade, tissue nippers, and/or power dremel instrumentation by the physician of record - 75571, Q8.? * Procedure Codes:?40353 DEBRI DE NAIL, 6 OR MORE, Modifiers: XS 64013 TRIM SKIN LESIONS, OVER 4, Modifiers: XS , Q8 * Follow Up:?prn * Images: * Sign off status: Completed true * Provider:?Mohamud Sutherland DPM Date:?2023 Generated for Lm de la rosa/Jazz/Emerald on:?01/03/2025 02:43 PM EST History and Physical Notes * HPI (History of Present Illness) Category Sub-Category Detail Notes Category Not es At Risk footcare Pt States Last PCP Visit: Date: Examination Category Sub-Category Detail Notes Category Not es Dermatologic SKIN FINDINGS: Skin exam reveal s Keratotic lesion(s) located at , Medial plantar , IPJ , TA , Medial plantar , IPJ , T5 , SUB MTH (s) , 1 , B/L , SUB MTH (s) , 5 , B/L , Plantar, Heel(s) , B/L Vascular DP PULSES (B): [...] malodorous subungual debris, with pain on palpation, TA, T1, T2, T3, T4, T5, T6, T7, T8, T9
--- OUTSIDE RECORDS SUMMARY | 2025-01-03 14:44 | XMS_ITS | Clinical Summary ---
Author Organization [facility] Address [address] [place] [address] Phone Care Team Providers Care Asset Protection Professional Name Role Phone Dc Bragg MD Primary Care Provider [phone] Allergies Active Allergy Reactions Criticality Noted Date Comments Adhesive Tape-Silicones Dermatitis,Hives,Itching,Rash 12/02/2024 Medications butalbital-aspir in-caffeine (FIORINAL) 50-325-40 mg per capsule Take 1 Tab by mouth every 4 hours as needed. Active albuterol HFA (PROAIR HFA ; PROVENTIL HFA ; VENTOLIN HFA) 90 mcg/actuation inhaler Inhale 2 Puffs into the lungs every 4 hours as needed for Cough, Wheezing or Shortness of Breath. 03/03/20 20 Active aspirin 81 mg EC tablet Daily Active bisacodyL (DULCOLAX) 5 mg EC tablet Take 2 Tabs by mouth daily as needed. Active acetaminophen (TYLENOL) 500 mg tablet Every 8 Hours 05/21/20 24 Active cetirizine (ZyrTEC) 10 mg tablet Take 10 mg by mouth daily. Active chlorhexidine (PERIDEX) 0.12 % solution 10/31/20 23 Active clotrimazole-bet amethasone (LOTRISONE) 1-0.05 % cream Apply small amount ot vulva twice daily for up to 7 days 04/22/20 24 025 Active DAPTOmycin in 0.9 % sod chlor 500 mg/50 mL piggyback Daily 05/21/20 24 Active diphenhydrAMINE (BENADRYL) 25 mg capsule Take 1 capsule (25 mg total) by mouth every 6 hours as needed. Active estradioL (VIVELLE-DOT) 0.05 mg/[address] 1 Patch onto the skin twice a week. 12/20/19 22 Active furosemide (LASIX) 80 mg tablet 10/19/20 19 Active gabapentin (NEURONTIN) 600 mg tablet Three Times A Day 08/11/20 Active hydrocortisone 1 % topical cream Apply 1 Applicator topically 2 times daily. Apply to the affected area (Labia) 01/26/20 24 Active ketoconazole (NIZORAL) 2 % cream Apply to affected area bid 06/21/20 21 Active lidocaine (LIDODERM) 5 % patch APPLY 1 PATCH TOPICALLY ONE TIME DAILY. ALLOW PATCH TO REMAIN ON AREA FOR UP TO 12 HOURS IN A 24 HOUR PERIOD. 06/25/20 24 Active LORazepam (ATIVAN) 0.5 mg tablet 04/22/20 24 Active meloxicam (MOBIC) 7.5 mg tablet Take 1 tablet (7.5 mg total) by mouth daily as needed for pain. 11/15/19 Active nystatin (MYCOSTATIN) ointment Apply to are bid-tid 01/16/20 24 025 Active omeprazole (PriLOSEC) [address] capsule Take 1 capsule (20 mg total) by mouth 1 (one) time each day. 08/15/20 Active OXcarbazepine (TRILEPTAL) 600 mg tablet Take 1 tablet (600 mg total) by mouth 2 (two) times a day. 11/14/19 24 Active pramipexole (MIRAPEX) 1.5 mg tablet Three Times A Day 05/18/20 24 Active senna-docusate (PERICOLACE) 8.6-50 mg per tablet Twice A Day as needed for Constipation 05/21/20 24 Active sertraline (ZOLOFT) 100 mg tablet Take 1.5 tablets (150 mg total) by mouth 1 (one) time each day. 07/21/20 24 Active sulfamethoxazole -trimethoprim (BACTRIM DS,SEPTRA DS) 800-160 mg per tablet 04/18/20 24 Active triamcinolone (KENALOG) 0.5 % cream Daily as needed for Rash 02/26/20 24 Active zolpidem (AMBIEN) 5 mg tablet Take 5 mg by mouth every night at bedtime as needed for sleep. Active multivit-min/iro n/folic acid/K (ADULTS MULTIVITAMIN ORAL) Take by mouth. Activ e multivitamin-min -iron-FA-vit K (Bariatric Multivitamins) 45 mg iron- 800 mcg-120 mcg capsule Take by mouth. Activ e Lactobacillus acidophilus 0.5 mg (100 million cell) tablet Take 1 Tablet by mouth 2 times daily. 02/04/20 24 Active cyclobenzaprine (FLEXERIL) 10 mg tablet TAKE 1 TABLET TWICE DAILY NEEDED FOR MUSCLE SPASM(S) 180 tablet 11/08/19 25 Active celecoxib (CeleBREX) 100 mg capsule Take 1 capsule by mouth twice daily 180 capsule 1 11/09/19 25 Active hydrOXYzine HCL (ATARAX) 10 mg tablet Take 1 tablet by mouth twice daily 180 tablet 1 11/09/19 25 Active metoprolol succinate (TOPROL-XL) 50 mg 24 hr tablet Take 1 tablet by mouth once daily 90 tablet 11/24/19 25 Active mupirocin (BACTROBAN) 2 % ointment APPLY TO LEGS AT NIGHT 110 g 2 11/29/19 25 Active levothyroxine (SYNTHROID, LEVOTHROID) 150 mcg tablet Take 1 tablet (150 mcg total) by mouth 1 (one) time each day. Take 1 tablet by mouth daily , and on Friday and Friday take 2 tablets each day 114 tablet 1 11/25/19 25 Active morphine (MS CONTIN) 15 mg 12 hr tablet Take 1 tablet (15 mg total) by mouth 2 (two) times a day. Max Daily Amount: 30 mg 56 tablet 12/22/19 25 Active oxyCODONE-acetam inophen (PERCOCET) 10-325 mg per tablet Take 1 tablet by mouth 1 (one) time each day. Max Daily Amount: 1 tablet 28 tablet 12/22/19 25 Active morphine (MS CONTIN) 15 mg 12 hr tablet Take 1 tablet (15 mg total) by mouth 2 (two) times a day. 05/26/20 24 025 Discontin ued(Reord er) oxyCODONE-acetam inophen (PERCOCET) 10-325 mg per tablet Take 1 Tablet by mouth daily for 28 days. 05/26/20 24 025 Discontin ued(Reord er) Active Problems Problem Noted Date Diagnosed Date Abdominal cramping in right lower quadrant 08/20 DJD (degenerative joint disease), lumbar 024 Fecal incontinence 08/20/2024 Urinary incontinence 08/20/2024 GERD (gastroesophageal reflux disease) Hypothyroid 08/20/2024 Insomnia 08/20/2024 Paralysis 08/20/2024 Raynaud's disease 08/20/2024 Overview (08/20/2024): Onset~ 1999. 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 Abnormal EEG 07/23/2023 Overview (08/20/2024): eeg shows irritation left temporal area suspicious for partial seizures Gait instability 05/12/2023 Primary osteoarthritis of left hip 05/12/2023 Prurigo nodularis 08/23/2022 Postural orthostatic tachycardia syndrome 2020 Overview (08/20/2024): Postural orthostatic tachycardia syndrome Degenerative disc disease, lumbar 11/10/2020 Lumbar radiculopathy 11/10/2020 Spinal stenosis of lumbar region 11/10/2020 Overview (08/20/2024): Last Assessment & Plan: I reviewed this in detail with the patient noting that at worst, there is moderate central stenosis at L4-5. This was not significant enough to explain her degree of back pain, weakness walking or to warrant surgical intervention. She is quite frustrated and becomes tearful during our visit, feeling that she is at her wits end. She has persistent symptoms despite a spinal cord stimulator, recent injections, therapy and medication. I see no role for surgery here but will send her for lower extremity EMG since the left leg numbness and weakness is what causes her to fall. Sjogren's syndrome 10/03/2020 Overview (08/20/2024): Longstanding oral and ocular dryness. Negative rheumatoid factor, negative JAVON but positive Sjogren's antibodies. 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 Overview (08/20/2024): Admitted [facility] 04/02/2016 - After corticosteroid injection- DVT (deep venous thrombosis) 09/06/2016 Paraparesis 07/12/2016 Essential hypertension 08/21/2015 Anxiety 01/03/2015 Encounters Date Type Department Care Team Description 12/20/2024 7:50 AM EST - 12/20/2024 11:59 PM EST Hospital Encounter [facility] Xray [address] [place] [id number] Discharge Disposition: Home or Self Care 12/02/2024 2:00 PM EST Consult Orthopedics - [address] [phone] All Leach PA Lumbar pain (Primary Dx); Lumbar radiculopathy 12/02/2024 1:28 PM EST - 12/02/2024 11:59 PM EST Hospital Encounter XRAY - [address] [phone] Lumbar pain Discharge Disposition: Home or Self Care 11/04/2024 1:30 PM EST Office Visit Bariatric Surgery - [place] [facility] [address] [place] [phone] Geronimo Nolan MD Class 3 severe obesity due to excess calories with serious comorbidity and body mass index (BMI) of 45.0 to 49.9 in adult ([facility]) (Primary Dx) 10/18/2024 3:00 PM EST Office Visit Gastroenterology - [place] [facility] [address] [facility] [address] [place] [phone] Austyn Chin PA Dysphagia, unspecified type (Primary Dx); Raspy voice; Regurgitation of food; History of gastric restrictive surgery 10/06/2024 10:00 AM EST Office Visit Adult [address] [phone] Dc Bragg MD Other chronic back pain (Primary Dx); Hypothyroidism, unspecified type; Pain of left upper extremity; Lumbar radiculopathy; Paraplegia (CMS/HCC); Essential hypertension; Spinal stenosis of lumbar region, unspecified whether neurogenic claudication present; Osteoarthritis of lumbar spine, unspecified spinal osteoarthritis complication status from Last 3 Months Immunizations Name Administration Dates Next Due Influenza Quadravalent, MDCK , 0.5ml, preservative free (Flucelvax) 6mo and older 08/14/2023,11/05/2022,07/31/2022,2020,10/22/2019,07/16/2018 Influenza trivalent, 0.5mL, preservative free (Fluarix; FluLaval; Fluzone) ages 6mo and older (Afluria) 3 years and older 08/07/2016 Tdap Tetanus diptheria acell ular pertussis (Boostrix; Adacel) 7yo and older 07/16/2018 Surgical History Surgery Date Site/Laterality Comments OTHER SURGICAL HISTORY 1996 PROCEDURE: HISTORICAL TOTAL HYSTERECTOMY W/O BSO; COMMENT: prolapse OTHER SURGICAL HISTORY PROCEDURE: GA ARTHROSCOPY WRIST SURG INT FIXJ FX/INSTABILITY; COMMENT: defect - Sx X 2 ANKLE SURGERY PROCEDURE: HISTORICAL ANKLE SURGERY; COMMENT: cyst removal SINUS SURGERY PROCEDURE: GA UNLISTED PROCEDURE ACCESSORY SINUSES LAPAROSCOPIC GASTRIC BANDING PROCEDURE: LAP ADJUSTABLE GASTRIC BAND; COMMENT: has been removed after 8 years BACK SURGERY 04/02/2016 PROCEDURE: HISTORICAL BACK SURGERY; COMMENT: epidural abcess COLONOSCOPY 05/30/2017 PROCEDURE: HISTORICAL COLONOSCOPY; COMMENT: [facility]; normal. CARPAL TUNNEL RELEASE 2018 Bilateral PROCEDURE: HISTORICAL CARPAL TUNNEL REL BARIATRIC SURGERY 07/24/2020 PROCEDURE: GA LAPS GSTRC RSTRICTIV PX LONGITUDINAL GASTRECTOMY Medical History Medical History Date Comments Historical Medical DX DX:DJD (de generative joint disease) of lumbar spine Insomnia DX:Insomnia POTS (postural orthostatic t achycardia syndrome) DX:POTS (postural orthostati c tachycardia syndrome) Hypothyroid DX:Hypothyroid Raynaud's disease DX:Raynaud's d isease GERD (gastroesophageal reflux disease) DX:GERD (gastroesophageal reflux disease) Fibromyalgia DX:Fibromyalgia Tendonitis of ankle DX:Tendoniti s of ankle IBS (irritable bowel syndrome) D X:IBS (irritable bowel syndrome) Hiatal hernia DX:Hiatal hernia Anxiety 01/03/2015 DX:Anxiety Obesity DX:Obesity; COMM ENT: HX LAP Band [id number] Sjogren's syndrome (CMS/HCC) 10/03/2020 DX: Sjogren's syndrome ([facility]); COMMENT: Longstanding oral and ocular dryness. Negative rheumatoid factor, negative JAVON but positive Sjogren's antibodies. Spinal cord abscess DX:Spinal co rd abscess Paralysis (CMS/HCC) DX:Paralysis ([facility]) Spinal cord stimulator status DX :Spinal cord stimulator status Fecal incontinence DX:Fecal inco ntinence Urinary incontinence DX:Urinary incontinence Abdominal cramping in right lower quadrant DX:Abdominal cramping in rig ht lower quadrant Depressive disorder DX:Depressiv e disorder Hyperlipidemia DX:Hyperlipidemi a Essential hypertension DX:Essent ial hypertension Family History Medical History Relation Name Comments Other cancer Maternal Grandfather stomach Breast cancer Maternal Grandmother dx'd 60s Other cancer Maternal Grandmother dx'd 60s breast Arthritis Mother Heart attack Mother Arthritis Sister Relation Name Status Comments Maternal Grandfather Maternal Grandmother dx'd 60s Mother Sister Social History Tobacco Use Types Packs/Day Years Used Date Smoking Tobacco: Never Smokeless Tobacco: Never Tobacco Cessation:Counseling Given: Not Answered Alcohol Use Standard Drinks/Week Comments No 0 [...] Record ed Within the last 3 months, alexander perez many times did you visit the emergency [...] care for your loved ones. For example, vocational childcare teacher or elderly care for an older adult? [...] on file Sexual Orientation Not on file Obstetrics History Last Filed Vital Signs Vital Sign Reading Time Taken Comments Blood Pressure 127/79 11/04/2024 1:28 PM EST Pulse 72 11/04/2024 1:28 PM EST Temperature 36.2 ??C (97.1 ??F) 11/04/2024 1:28 PM ES T Respiratory Rate 16 12/02/2024 2:00 PM EST Oxygen Saturation - - Inhaled Oxygen Concentration - - Weight 134 kg (295 lb) 12/02/2024 2:00 PM EST Height 167.6 cm (5' 6 ) 12/02/2024 2:00 PM EST Body Mass Index 47.61 12/02/2024 2:00 PM EST Plan of Treatment Upcoming Encounters Date Type Department Care Team (Late st Contact Info) Description 01/05/2025 1:00 PM EST Office Visit Adult Medicine [address] [phone] Kulwinder Moran PA [address] [place] [address] 01/17/2025 2:50 PM EDT Appointment Radiology Department - [address] [phone] 04/11/2025 1:00 PM EDT Office Visit Adult [address] [phone] Dc Bragg MD [address] [place] [address] Health Maintenance Due Date Last Done Comments Hepatitis B Vaccines (1 of 3 - 19+ 3-dose series) 1985 Pneumococcal Vaccine: 50+ Years (1 of 1 - PCV) 2016 Zoster Vaccines (1 of 2) 2016 HIV Screening 10/12/2022 Medicare Annual Wellness Visit 10/12/2022 COVID-19 Vaccine ( season) 2024 02/21/2022, 09/19/2021, 03/02/2021, Additional history exists Influenza Vaccine (#1) 2024 , 11/05/2022, 07/31/2022, Additional history exists Hypertension/CHF/CAD Annual BMP Blood Test 06/22/2025 06/22/2024, 06/22/2024 Depression Screening 10/02/2025 10/02/2024 Social Influencers of Health Screening 10/02/2025 10/02/2024 Breast Cancer Screening 01/13/2026 01/14/20 24, 01/09/2023, 01/04/2022, Additional history exists Cholesterol Screening (Lipid Panel) 05/11/2026 05/11/2021 Colorectal Cancer Screening: Colonoscopy 05/30/2027 05/30/2017 DTaP,Tdap,and Td Vaccines (2 - Td or Tdap) 07/16/2028 07/16/2018 Hepatitis C Screening Completed 05/01/2018 HIB Vaccines Aged Out No longer eligi ble based on patient's age to complete this topic HPV Vaccines Aged Out No longer eligi ble based on patient's age to complete this topic Hepatitis A Vaccines Aged Out No long er eligible based on patient's age to complete this topic IPV Vaccines Aged Out No longer eligi ble based on patient's age to complete this topic MMR Vaccines Aged Out No longer eligi ble based on patient's age to complete this topic Meningococcal ACWY Vaccine Aged Out N o longer eligible based on patient's age to complete this topic Meningococcal B Vacine Aged Out No lo nger eligible based on patient's age to complete this topic Pneumococcal Vaccine: Pediatrics (0 to 5 Years) and At-Risk Patients (6 to 64 Years) Aged Out No longer eligible based on patient's age to complete this topic RSV Immunization Patients Under 20 months Aged Out No longer eligible based on patient's age to complete this topic Varicella Vaccines Aged Out No longer eligible based on patient's age to complete this topic Procedures Procedure Name Priority Date/Time Associated Diagnosis Comments XR ESOPHAGRAM Routine 12/20/2024 8:48 AM EST Dysphagia, unspecified type Raspy voice Regurgitation of food History of gastric restrictive surgery XR LUMBAR SPINE 4+ VIEWS Routine 12/02/2024 1:42 PM EST Lumbar pain THYROID STIMULATING HORMONE WITH REFLEX TO FREE T4 AND FREE T3 Routine 10/06/2024 11:47 AM EST Hypothyroidism, unspecified type HM ANNUAL BMP BLOOD TEST Routine 06/22/2024 SCREENING MAMMOGRAPHY BI 2-VIEW BREAST INC CAD Routine 01/14/2024 1:53 PM EDT Encounter for screening mammogram for malignant neoplasm of breast LIPID PANEL Routine 05/11/2021 HEPATITIS C SCREENING Routine 05/01/2018 COLONOSCOPY Routine 05/30/2017 from Last 3 Months or Most Recently Relevant to Health Maintenance Results * XR Esophagram (12/20/2024 8:48 AM EST) Anatomical Region Laterality Modality Head and Neck Radiographic Jocelyn ging 12/20/2024 9:01 AM EST Impressions 12/20/2024 9:12 AM EST Moderately severe esophageal dysmotility. The patient is seen to have undergone gastric sleeve surgery. No other abnormality is demonstrated. The dose-area product for this procedure was 6.45 Gy*cm2. PQRI CPT II G9500 -------- FINAL REPORT -------- Dictated By: Patrick Mackay Dictated Date: 12/20/2024 09:01 ET Assigned Physician: Patrick Mackay Reviewed and Electronically Signed By: Patrick Mackay Signed Date: 12/20/2024 09:12 ET Workstation ID: [id number] Transcribed By: Self Edit Transcribed Date: 12/20/2024 09:09 ET Narrative 12/20/2024 9:12 AM EST HISTORY: The patient is a 59-year-old female with Sjogren's syndrome, who underwent gastric sleeve surgery and hiatal hernia repair in 2019. The patient now presents with dysphagia as well as choking and coughing while eating. FINDINGS: Operations Controller PA radiograph of the chest demonstrates spinal stimulator electrodes with their tips at the level of the T8 vertebral body. There are mild degenerative changes of the thoracic spine and mild dextroscoliosis of the thoracolumbar spine. The cardiac and mediastinal contours are within normal limits. Mild linear scarring versus discoid atelectasis is present at the left mid to lower lung. The lungs are otherwise clear and the costophrenic angles are sharp. Cholecystectomy clips are present. Operations Controller lateral radiograph of the neck demonstrates no prevertebral soft tissue swelling. The epiglottis and aryepiglottic folds are of normal appearance. No soft tissue mass is seen. The included portion of the airway is widely patent. There are degenerative changes of the mid and lower cervical spine Effervescent crystals were administered orally. Thick and thin barium was then administered orally under fluoroscopic control. There is moderately severe esophageal dysmotility as evidenced by decreased efficacy of the primary peristaltic stripping wave, tertiary contractions, and slow passage of barium down the esophagus. There is no ulcer, stricture, or filling defect. The mucosal pattern is normal. There is no hiatal hernia and no gastroesophageal reflux could be elicited. There is no radiographic evidence of esophagitis. Rapid sequence images of the hypopharynx during swallowing demonstrates prompt initiation of swallowing. There is normal soft palate elevation and normal epiglottic motion. There is no residual in the vallecula nor in the piriform sinuses. A 13 mm barium tablet was readily swallowed and passed rapidly down the esophagus into the stomach. The configuration of the stomach is consistent with gastric sleeve surgery. Procedure Note Patrick Mackay MD - 12/20/2024 HISTORY: The patient is a 59-year-old female with Sjogren's syndrome, whounderwent gastric sleeve surgery and hiatal hernia repair in 2019. Thepatient now presents with dysphagia as well as choking and coughing whileeating. FINDINGS: Operations Controller PA radiograph of the chest demonstrates spinal stimulatorelectrodes with their tips at the level of the T8 vertebral body. Thereare mild degenerative changes of the thoracic spine and milddextroscoliosis of the thoracolumbar spine. The cardiac and mediastinalcontours are within normal limits. Mild linear scarring versus discoidatelectasis is present at the left mid to lower lung. The lungs areotherwise clear and the costophrenic angles are sharp. Cholecystectomyclips are present. Operations Controller lateral radiograph of the neck demonstrates noprevertebral soft tissue swelling. The epiglottis and aryepiglottic foldsare of normal appearance. No soft tissue mass is seen. The includedportion of the airway is widely patent. There are degenerative changes ofthe mid and lower cervical spine Effervescent crystals were administered orally. Thick and thin barium wasthen administered orally under fluoroscopic control. There is moderatelysevere esophageal dysmotility as evidenced by decreased efficacy of theprimary peristaltic stripping wave, tertiary contractions, and slowpassage of barium down the esophagus. There is no ulcer, stricture, orfilling defect. The mucosal pattern is normal. There is no hiatal herniaand no gastroesophageal reflux could be elicited. There is no radiographicevidence of esophagitis. Rapid sequence images of the hypopharynx duringswallowing demonstrates prompt initiation of swallowing. There is normalsoft palate elevation and normal epiglottic motion. There is no residualin the vallecula nor in the piriform sinuses. A 13 mm barium tablet wasreadily swallowed and passed rapidly down the esophagus into the stomach.The configuration of the stomach is consistent with gastric sleevesurgery. IMPRESSION: Moderately severe esophageal dysmotility. The patient is seen to haveundergone gastric sleeve surgery. No other abnormality is demonstrated. The dose-area product for this procedure was 6.45 Gy*cm2. PQRI CPT II G9500 -------- FINAL REPORT -------- Dictated By: Patrick Mackay Dictated Date: 12/20/2024 09:01 ET Assigned Physician: Patrick Mackay Reviewed and Electronically Signed By: Patrick Mackay Signed Date: 12/20/2024 09:12 ET Workstation ID: [id number] Transcribed By: Self Edit Transcribed Date: 12/20/2024 09:09 ET Austyn FU IMG FLUOROSCOPY PROCEDURES Camila l Result * XR Lumbar Spine 4+ Views (12/02/2024 1:42 PM EST) Anatomical Region Laterality Modality Spine, L-spine Radiographic Jocelyn ging 12/02/2024 4:45 PM EST Impressions 12/02/2024 4:49 PM EST Mild degenerative changes. -------- FINAL REPORT -------- Dictated By: Nichol Paredes Dictated Date: 12/02/2024 16:45 ET Assigned Physician: Nichol Paredes Reviewed and Electronically Signed By: Nichol Paredes Signed Date: 12/02/2024 16:49 ET Workstation ID: [id number] Transcribed By: Self Edit Transcribed Date: 12/02/2024 16:45 ET Narrative 12/02/2024 4:49 PM EST XR LUMBAR SPINE 5 VIEWS Reason: lower back pain Comparison: Radiographs on February 27, 2022 FINDINGS: Grade 1 retrolisthesis of L1 on L2 and L2 on L3. Grade 1 anterolisthesis of L4 on L5. Minimal compression fracture deformity of L2 vertebral body is unchanged. ??Small marginal osteophytes at multiple levels. ??Disc space narrowing is more prominent at L1-L2. ??Facet arthropathy is more prominent at L3-L4 down to L5-S1. ??Sacroiliac joints are intact. Procedure Note Nichol Paredes MD - 12/02/2024 XR LUMBAR SPINE 5 VIEWS Reason: lower back pain Comparison: Radiographs on February 27, 2022 FINDINGS: Grade 1 retrolisthesis of L1 on L2 and L2 on L3. Grade 1 anterolisthesisof L4 on L5. Minimal compression fracture deformity of L2 vertebral bodyis unchanged. Small marginal osteophytes at multiple levels. Disc spacenarrowing is more prominent at L1-L2. Facet arthropathy is more prominentat L3-L4 down to L5-S1. Sacroiliac joints are intact. IMPRESSION: Mild degenerative changes. -------- FINAL REPORT -------- Dictated By: Nichol Paredes Dictated Date: 12/02/2024 16:45 ET Assigned Physician: Nichol Paredes Reviewed and Electronically Signed By: Nichol Paredes Signed Date: 12/02/2024 16:49 ET Workstation ID: [id number] Transcribed By: Self Edit Transcribed Date: 12/02/2024 16:45 ET All FU IM XR PROCEDURES Final Result * Thyroid stimulating hormone with reflex to free t4 and free t3 (10/06/2024 11:47 AM EST) TSH 3.85 0.40 - 4.00 mcIU/mL LAB CHEMISTRY METHOD 10/06/2024 2:45 PM EST [facility] Blood Venous blood specimen / Unknown Venipuncture / Unknown 10/06/2024 11:47 AM EST 10/06/2024 11:47 AM EST us Dc Bragg MD LAB BLOOD ORDERABLES Final Resu lt [facility] [address] [place] [address], * Annual BMP Blood Test (06/22/2024) Annual BMP Blood Test abstracted Historical Provider HEALTH MAINTENANCE Final Result * SCREENING MAMMOGRAPHY BI 2-VIEW BREAST INC CAD (01/14/2024 1:53 PM EDT) Anatomical Region Laterality Modality Radiographic Jocelyn ging 01/09/2023 1:17 PM EST Narrative 01/15/2024 11:57 AM EDT This is a summary report. The complete report is available in the patient's medical record. If you cannot access the medical record, please contact the sending organization for a detailed fax or copy. BILATERAL 3D DIGITAL SCREENING MAMMOGRAM History: Routine screening. ??No current breast complaints. ??Family history of breast cancer in grandmother Comparison: Multiple priors dating back to 12/29/2020 Technique: Bilateral full-field digital 3D mammography was performed using standard CC and MLO projections, bilateral exaggerated cc view, right cleavage view CAD was used to evaluate this mammogram. Findings: Density: ??There are scattered areas of fibroglandular density-B RIGHT: No suspicious masses, groups of microcalcification or areas of architectural distortion identified. Stable typically benign parenchymal asymmetries LEFT: No suspicious masses, groups of microcalcifications or areas of architectural distortion identified. Stable typically benign parenchymal asymmetries IMPRESSION: : 1. ??No mammographic evidence of malignancy. BI-RADS Category 2 benign findings Recommendation: Routine annual screening mammography is recommended Procedure Note Eloy Gallegos MD - 06/21/2024 This is a summary report. The complete report is available in thepatient's medical record. If you cannot access the medical record, pleasecontact the sending organization for a detailed fax or copy. BILATERAL 3D DIGITAL SCREENING MAMMOGRAM History: Routine screening. No current breast complaints. Family historyof breast cancer in grandmother Comparison: Multiple priors dating back to 12/29/2020 Technique: Bilateral full-field digital 3D mammography was performed usingstandard CC and MLO projections, bilateral exaggerated cc view, rightcleavage view CAD was used to evaluate this mammogram. Findings: Density: There are scattered areas of fibroglandular density-B RIGHT: No suspicious masses, groups of microcalcification or areas ofarchitectural distortion identified. Stable typically benign parenchymalasymmetries LEFT: No suspicious masses, groups of microcalcifications or areas ofarchitectural distortion identified. Stable typically benign parenchymalasymmetries IMPRESSION: : 1. No mammographic evidence of malignancy. BI-RADS Category 2 benign findings Recommendation: Routine annual screening mammography is recommended Dc Bragg MD IMG XR PROCEDURES Final Result * (ABNORMAL) Lipid panel (05/11/2021) Pathologist [facility] LDL/HDL Ratio 4 0 - 4 Triglycerides 128 0 - 150 mg/dL Cholesterol 231(A) 0 - 200 mg/dL HDL 61 >=40 mg/dL LDL Cholesterol 145(A) 0 - 100 mg/dL Blood Venous blood specimen / Unknown [facility] Lani HENNESSY LAB BLOOD ORDERABLES Camila l Result * Hepatitis C Screening (05/01/2018) Hepatitis C Screening abstracted Eve Garibay MD HEALTH MAINTENANCE Final Result * Colonoscopy (05/30/2017) Colonoscopy no interpretation , abstracted Anatomical Region Laterality Modality Other [facility] Lani HENNESSY HEALTH MAINTENANCE Final Result from Last 3 Months or Most Recently Relevant to Health Maintenance Insurance MEDICARE [facility] Care Teams Asset Protection Professional Relationship Specialty Start Date End Date Dc Bragg MD [address] [place] [id number] PCP - General Internal Medicine 09/02/24
--- OUTSIDE RECORDS SUMMARY | 2025-01-03 14:44 | XMS_ITS | Clinical Summary ---
Author Organization [facility] Address [address] [place] [address] Care Team Providers Care Scene Shifter Name Role Phone Dc Bragg MD Primary Care Provider [phone] Allergies Active Allergy Reactions Criticality Noted Date Comments Morphine Nausea And Vomiting 11/15/2019 Medications Medication Sig Dispensed Refills Start Date End Date Status furosemide (LASIX) 80 MG tablet 0 10/19/2019 Active gabapentin (NEURONTIN) 600 MG tablet 0 08/11/2019 Active metoprolol succinate (TOPROL-XL) 24 hr tablet 50 mg 0 09/10/2019 Active levothyroxine (SYNTHROID, LEVOXYL) tablet 150 mcg 0 09/10/2019 Active hydrOXYzine (ATARAX) 10 MG tablet 0 09/17/2019 Active zolpidem (AMBIEN) 5 MG tablet Take 5 mg by mouth every night at bedtime as needed for sleep. 0 Active oxyCODONE-acetaminoph en (PERCOCET) 5-325 MG per tablet Take 1 tablet by mouth every 4 (four) hours as needed for pain. 0 Active diphenhydrAMINE (BENADRYL) 25 mg capsule Take 25 mg by mouth every 6 (six) hours as needed for itching. 0 Active omeprazole (PriLOSEC) 20 MG capsule Take 20 mg by mouth daily. 0 Active aspirin EC 81 MG tablet Take 81 mg by mouth daily. 0 Active Multiple Vitamins-Minerals (MULTIVITAMIN ADULT PO) Take by mouth. 0 Active sertraline (ZOLOFT) 100 MG tablet Take 150 mg by mouth daily. Takes 150mg 0 Active OXcarbazepine (TRILEPTAL) 300 MG tablet Take 300 mg by mouth 2 (two) times a day. 0 Active pramipexole (MIRAPEX) 0.25 MG tablet Take 0.25 mg by mouth 3 (three) times a day. 0 Active cetirizine (ZyrTEC) 10 MG tablet Take 10 mg by mouth daily. 0 Active cyclobenzaprine (FLEXERIL) 10 MG tablet Take 10 mg by mouth 3 (three) times a day as needed for muscle spasms. 0 Active meloxicam (MOBIC) 7.5 MG tablet Take 1 tablet (7.5 mg total) by mouth daily as needed for pain. 30 tablet 2 11/15/2019 Active Active Problems No known active problems Family History Medical History Relation Name Comments Cancer Maternal Grandmother Relation Name Status Comments Maternal Grandmother Mother [place] Social History Tobacco Use Types Packs/Day Years Used Date Smoking Tobacco: Never Smokeless Tobacco: Never Alcohol Use Standard Drinks/Week Comments No 0 (1 standard drink = 0.6 oz pur e alcohol) Sex and Gender Information Value Date Recorded Sex Assigned at Not on file Gender Identity Not on file Sexual Orientation Not on file Last Filed Vital Signs Vital Sign Reading Time Taken Comments Blood Pressure - - Pulse - - Temperature - - Respiratory Rate - - Oxygen Saturation - - Inhaled Oxygen Concentration - - Weight 154.2 kg (340 lb) 11/15/2019 10:26 AM EST Height 167.6 cm (5' 6 ) 11/15/2019 10:26 AM EST Body Mass Index 54.88 11/15/2019 10:26 AM EST Plan of Treatment Health Maintenance Due Date Last Done Comments Hepatitis B Vaccines (1 of 3 - 3-dose series) 1966 Hepatitis C Screening 1966 COVID-19 Vaccine (#1) 1966 Depression Screening 1978 BMI Counseling 1984 Preventative Health Evaluation 1984 DTap / Tdap / Td (1 - Tdap) 1985 Cervical Cancer Screening (P ap Smear) 1987 Colon Cancer Screening (Colonoscopy) 2011 Breast Cancer Screening (Mammogram) 2016 Shingrix-Zoster Vaccine (1 of 2) 2016 Influenza Vaccine (#1) 2024 Pneumococcal Vaccine Aged Out No long er eligible based on patient's age to complete this topic RSV Ped < 20 months Aged Out No longe r eligible based on patient's age to complete this topic Care Teams Scene Shifter Relationship Specialty Start Date End Date Dc Bragg MD PCP - General Internal Medicine 10/26/19
== END 2025-01-03 13:42 | disposition home or self-care (01) ==
PROVIDERS: PCP Internal Medicine; Visit Provider Psychiatry & Neurology Neurology
DX: R56.9 Unspecified convulsions (principal); G47.30 Sleep apnea, unspecified; G25.81 Restless legs syndrome
CPT/HCPCS: 99214

== ENCOUNTER → 2025-01-03 12:36 | Outpatient (BNVA) | payer MEDICARE, OTHER, SELFPAY | PROVIDERS: PCP Internal Medicine; Visit Provider Psychiatry & Neurology Neurology | DX: R56.9 Unspecified convulsions (principal); G47.30 Sleep apnea, unspecified; G25.81 Restless legs syndrome | CPT/HCPCS: 99212 ==

== ENCOUNTER 2025-05-16 13:46 | Outpatient (AMB) | payer MEDICARE, OTHER, SELFPAY ==
[2025-05-16 13:51] VITALS: BP 140/90; PULSE 90; O2SAT 97; BMI 46.2
--- NOTE | 2025-05-16 13:51 | A.OFFVIS_ITS ---
Vital Signs 05/16/25 13:51 Height 5 ft 6 in Weight 286 lb BMI 46.2 BP 140/90 H Blood Pressure Location Rt brachial Position Sitting Pulse 90 Pulse Source Pulse Oximeter Pulse Oximetry (%) 97 Oxygen Delivery Method Room Air Intake Visit Reasons: 4mon follow-up Intake Note: Patient presents for follow up restless leg syndrome Retail Service Specialist Required: No Accompanied by: Self / Same As Patient Allergies environmental allergies Allergy (Unknown, Verified 05/16/25 13:58) Unknown adhesives Allergy (Severe, Uncoded 01/03/25 12:44) Blister Medication List - Last Reconciled 05/16/25 by Dea Thomas MD albuterol sulfate 90 mcg/actuation 0 mcg inhalation celecoxib 100 mg PO BID clonazepam 0.25 mg PO BEDTIME MDD 0.25mg PO cyclobenzaprine 10 mg PO BID diclofenac sodium 1% (Arthritis Pain (diclofenac)) 4 grams topical QID dupilumab (Dupixent) 200 mg subcut Q2W estradiol (Yari) 1 patch transdermal ONCE furosemide 80 mg PO DAILY PRN gabapentin 600 mg PO DAILY hydroxyzine HCl 10 mg PO BID levothyroxine 150 mcg PO DAILY lidocaine 5% 1 patch transdermal DAILY metoprolol succinate ER 50 mg PO DAILY morphine ER 15 mg PO BID PRN omeprazole 20 mg PO DAILY oxcarbazepine 600 mg (2 x 300 mg) PO BID 30 days oxycodone-acetaminophen 5-325 mg 1 tab PO TID PRN pramipexole 1 mg PO TID sertraline 150 mg PO DAILY triamcinolone acetonide 0.1% appl topical HPI Comments Details: 59 y/o female patient presents for follow up of seizure and sleep apnea.No seizures . she reports episodes of unawareness lasting few seconds - daily multiple - under 10 seconds . Her main issue is restless legs syndrome today.she has trouble falling asleep because of her restless legs. she reports both discomfort and abnormal leg cramps. she is unable to sleep - 3 days a week she does not sleep because of her legs . she was admitted at [facility] for cellulitis and lympadema SHe is on pramipexole 1mg tid . she takes gabapentin, percocet and muscle relaxant, morphine. The PSG sleep study result was significant for mild degree of sleep apnea. The AHI was 8/hr and oxygen jacquie was 86%. It was limited study due to the short amount of sleep and absence of REM. she tried CPAP but could not sleep. Now she uses a wedge pillow and avoids supine sleep, nasal strips . Abnormal EEG suggestive of left temporal irritability with suspicion of partial seizure disorder. Pt is on oxcarbazepine 600 mg BID. No episodes of passing out she does not drive. [facility], [facility] Medical History Restless legs syndrome (RLS) Neurodermatitis Sjogrens syndrome Hypothyroid GERD (gastroesophageal reflux disease) HTN (hypertension) Lumbar spondylosis Lumbar radiculitis Multilevel degenerative disc disease Osteoarthritis Surgical History History of carpal tunnel release History of back surgery History of sleeve gastrectomy Hx of laparoscopic gastric banding Hx of sinus surgery History of surgery on left wrist Hx of hysterectomy Hx of cholecystectomy S/P insertion of spinal cord stimulator Social History Housing: Apartment Alcohol intake: never Patient Tobacco Use Status: Never used Tobacco Second Hand Smoke Exposure: No Review of Systems ENT Reports Normal hearing present Neuro Reports Normal hearing present Physical Exam Vital Signs: Last Vital Signs Pulse 90 05/16/25 13:51 BP 140/90 H 05/16/25 13:51 Pulse Ox 97 05/16/25 13:51 Oxygen Delivery Method Room Air 05/16/25 13:51 BMI result Body Mass Index 46.2 Const General: cooperative Nutritional Appearance: obese Orientation/consciousness: patient oriented x3 Limitations: ambulation with cane Neck Neck: Yes full ROM and Yes supple Resp Effort & Inspection: normal respiratory effort and able to speak in complete sentences Neuro General: patient oriented x3 and moves all extremities Cranial nerves: Yes Bilaterally intact EOM present, Yes Normal facial strength present, Yes Midline tongue present, Yes Symmetric palate elevation present, Yes Normal hearing present, Yes Ability to bilaterally rotate head present and Yes Ability to bilaterally elevate shoulders present Cognition (Neuro): normal cognition Gait exam (Neuro): Normal gait present Psych Speech and movement: Clear speech present Affect: normal affect Attitude: cooperative Assessment & Plan Assessment & Plan (1) Seizure-like activity: Comment: EEG showed partial seizure activity. Code(s): R56.9 - Unspecified convulsions Category: Medical (2) Sleep apnea: Comment: Mild degree of sleep apnea. The AHI was 8/hr oxygen jacquie was 86%. Code(s): G47.30 - Sleep apnea, unspecified Category: Medical Qualifiers: Sleep apnea type: unspecified type Qualified Code(s): G47.30 - Sleep apnea, unspecified (3) Seizures: Code(s): R56.9 - Unspecified convulsions (4) Restless legs syndrome (RLS): Code(s): G2.81 - Restless legs syndrome Category: Medical Plan Continue oxcarbazepine 600 mg BID. continue pramipexole 1mg tid gabapentin 600mg tid Increase clonazepam 0.125mg qhs Avoid supine sleep, flonase, nasal strips . this was a counseling predominated session Medications: Changed From clonazepam administer 30 minutes before bedtime 0.25 mg (2 x 0.125 mg) PO BEDTIME 30 tabs 3RF MDD 0.25mg PO G2 - Restless legs syndrome To clonazepam administer 30 minutes before bedtime 0.25 mg PO BEDTIME 30 tabs 3RF MDD 0.25mg PO G2 - Restless legs syndrome Coding Level of Care Code Est Pt Level 4 (98786) Complex EM visit Add On G2211 Diagnoses Seizure-like activity R56.9 Sleep apnea, unspecified type G47.30 Sleep apnea type: unspecified type Seizures R56.9 Restless legs syndrome (RLS) G25.81
--- OUTSIDE RECORDS SUMMARY | 2025-05-16 14:58 | XMS_ITS ---
Author Organization [address] [facility] Address [address] [place] [address] Phone Care Team Providers Care Bridge Welder Name Role Phone Dc Bragg MD Primary Care Provider [phone] Transitional Care Management Status:Ongoing (Active) Start date:05/12/2025 Enrollment date:05/12/2025 Enrollment reason:Identified using hospital discharge data Case Team Name Relationship Phone Artis Pruett LPN Care Manager(Responsible Staff) Continued Care and Services Coordination
--- OUTSIDE RECORDS SUMMARY | 2025-05-16 14:58 | XMS_ITS | Clinical Summary ---
Author Organization [facility] Address [address] [place] [address] Care Team Providers Care Electric Motor Control Assembler Name Role Phone Dc Bragg MD Primary Care Provider [phone] Allergies Active Allergy Reactions Criticality Noted Date [...] Relation Name Status Comments Maternal Grandmother Mother [place] Social History Tobacco Use Types Packs/Day Years [...] (1 of 2) 2016 Influenza Vaccine (#1) 2025 Pneumococcal Vaccine Aged Out No long er eligible based on patient's age to complete this topic RSV Ped < 20 months Aged Out No longe r eligible based on patient's age to complete this topic Care Teams Electric Motor Control Assembler Relationship Specialty Start Date End Date Dc Bragg MD PCP - General Internal Medicine 10/26/19
== END 2025-05-16 14:38 | disposition home or self-care (01) ==
LOC: HO.HSMS 13:46
PROVIDERS: PCP Internal Medicine; Visit Provider Psychiatry & Neurology Neurology
DX: R56.9 Unspecified convulsions (principal); G47.30 Sleep apnea, unspecified; G25.81 Restless legs syndrome
CPT/HCPCS: 99214; G2211

== ENCOUNTER → 2025-05-16 13:46 | Outpatient (BNVA) | payer MEDICARE, OTHER, SELFPAY | PROVIDERS: PCP Internal Medicine; Visit Provider Psychiatry & Neurology Neurology | DX: G25.81 Restless legs syndrome (principal); G47.30 Sleep apnea, unspecified; R56.9 Unspecified convulsions; Z79.899 Other long term (current) drug therapy | CPT/HCPCS: 99212 ==

== ENCOUNTER 2025-09-19 12:46 | Outpatient (AMB) | payer MEDICARE, OTHER, SELFPAY ==
[2025-09-19 12:51] VITALS: BP 132/80; PULSE 90; O2SAT 97; BMI 43.3
--- NOTE | 2025-09-19 12:51 | A.OFFVIS_ITS ---
Vital Signs 09/19/25 12:51 Height 5 ft 6 in Weight 268 lb 2 oz BMI 43.3 BP 132/80 Blood Pressure Location Rt brachial Position Sitting Pulse 90 Pulse Source Pulse Oximeter Pulse Oximetry (%) 97 Oxygen Delivery Method Room Air Intake Visit Reasons: 4mnth follow up Intake Note: Follow up Seizure-like activity, Sleep Apnea and RLS. Pt returned CPAP machine 04.23.2024 Technical Sales Representative Required: No Accompanied by: Spouse Allergies environmental allergies Allergy (Unknown, Verified 09/19/25 12:55) Unknown adhesives Allergy (Severe, Uncoded 01/03/25 12:44) Blister Medication List - Last Reconciled 09/19/25 by Dea Thomas MD albuterol sulfate 90 mcg/actuation 0 mcg inhalation celecoxib 100 mg PO BID chlorhexidine gluconate 0.12% 10 mL PO TID clonazepam 0.25 mg PO BEDTIME MDD 0.25mg PO clotrimazole-betamethasone 1-0.05 % appl topical BID cyclobenzaprine 10 mg PO BID diclofenac sodium 1% (Arthritis Pain (diclofenac)) 4 grams topical QID estradiol (Yari) 1 patch transdermal ONCE furosemide 80 mg PO DAILY PRN gabapentin 600 mg PO DAILY hydrocortisone 1% appl topical hydroxyzine HCl 10 mg PO BID levothyroxine 150 mcg PO DAILY lidocaine 5% 1 patch transdermal DAILY metoprolol succinate ER 50 mg PO DAILY morphine ER 15 mg PO BID PRN omeprazole 20 mg PO DAILY oxcarbazepine 600 mg (2 x 300 mg) PO BID 30 days oxycodone-acetaminophen 10-325 mg 1 tab PO DAILY pramipexole 1.5 mg PO TID-QID sertraline 150 mg PO DAILY triamcinolone acetonide 0.1% appl topical HPI Comments Details: 60 y/o female patient presents for follow up of seizure and sleep apnea.No seizures . she reports episodes of unawareness lasting few seconds - daily multiple - under 10 seconds . Her main issue is restless legs syndrome today.she has trouble falling asleep because of her restless legs. she reports both discomfort and abnormal leg cramps. she reports not feeling well for past few weeks - she was in ER last week - her LFTS were abnormal- her appetite is worse and she reports nausea. she was admitted at [facility] for cellulitis and lympadema - better now SHe is on pramipexole 1.5mg tid . she takes gabapentin, percocet and muscle relaxant, morphine. The PSG sleep study result was significant for mild degree of sleep apnea. The AHI was 8/hr and oxygen jacquie was 86%. It was limited study due to the short amount of sleep and absence of REM. she tried CPAP but could not sleep. Now she uses a wedge pillow and avoids supine sleep, nasal strips . Abnormal EEG suggestive of left temporal irritability with suspicion of partial seizure disorder. Pt is on oxcarbazepine 600 mg BID. - but has been sick for past few weeks - she stopped . No episodes of passing out she does not drive. [facility] Medical History Restless legs syndrome (RLS) Neurodermatitis Sjogrens syndrome Hypothyroid GERD (gastroesophageal reflux disease) HTN (hypertension) Lumbar spondylosis Lumbar radiculitis Multilevel degenerative disc disease Osteoarthritis Surgical History History of carpal tunnel release History of back surgery History of sleeve gastrectomy Hx of laparoscopic gastric banding Hx of sinus surgery History of surgery on left wrist Hx of hysterectomy Hx of cholecystectomy S/P insertion of spinal cord stimulator Social History Housing: Apartment Alcohol intake: never Patient Tobacco Use Status: Never used Tobacco Second Hand Smoke Exposure: No Review of Systems ENT Reports Normal hearing present Neuro Reports Normal hearing present Physical Exam Vital Signs: Last Vital Signs Pulse 90 09/19/25 12:51 BP 132/80 09/19/25 12:51 Pulse Ox 97 09/19/25 12:51 Oxygen Delivery Method Room Air 09/19/25 12:51 BMI result Body Mass Index 43.3 Const General: cooperative Nutritional Appearance: obese Orientation/consciousness: patient oriented x3 Limitations: ambulation with cane Neck Neck: Yes full ROM and Yes supple Resp Effort & Inspection: normal respiratory effort and able to speak in complete sentences Neuro General: patient oriented x3 and moves all extremities Cranial nerves: Yes Bilaterally intact EOM present, Yes Normal facial strength present, Yes Midline tongue present, Yes Symmetric palate elevation present, Yes Normal hearing present, Yes Ability to bilaterally rotate head present and Yes Ability to bilaterally elevate shoulders present Cognition (Neuro): normal cognition Gait exam (Neuro): Normal gait present Psych Speech and movement: Clear speech present Affect: normal affect Attitude: cooperative Assessment & Plan Assessment & Plan (1) Seizure-like activity: Comment: EEG showed partial seizure activity. Code(s): R56.9 - Unspecified convulsions Category: Medical (2) Sleep apnea: Comment: Mild degree of sleep apnea. The AHI was 8/hr oxygen jacquie was 86%. Code(s): G47.30 - Sleep apnea, unspecified Category: Medical Qualifiers: Sleep apnea type: unspecified type Qualified Code(s): G47.30 - Sleep apnea, unspecified (3) Seizures: Code(s): R56.9 - Unspecified convulsions (4) Restless legs syndrome (RLS): Code(s): G25.81 - Restless legs syndrome Category: Medical Plan Continue oxcarbazepine 600 mg BID.- compliance stressed continue pramipexole 1.5mg tid gabapentin 600mg tid clonazepam 0.25mg qhs Avoid supine sleep, flonase, nasal strips . this was a counseling predominated session Orders: Referrals Gastroenterology Referral R79.89 - Other specified abnormal findings of blood chemistry Medications: New ondansetron HCl 4 mg PO Q8H PRN 90 tabs 0RF nausea and vomiting Coding Level of Care Code Est Pt Level 4 (27645) Complex EM visit Add On G2211 Diagnoses Seizure-like activity R56.9 Sleep apnea, unspecified type G47.30 Sleep apnea type: unspecified type Seizures R56.9 Restless legs syndrome (RLS) G25.81
== END 2025-09-19 13:17 | disposition home or self-care (01) ==
LOC: HO.HSMS 12:46
PROVIDERS: PCP Internal Medicine; Visit Provider Psychiatry & Neurology Neurology
DX: R56.9 Unspecified convulsions (principal); G47.30 Sleep apnea, unspecified; G25.81 Restless legs syndrome
CPT/HCPCS: 99214; G2211

== ENCOUNTER → 2025-09-19 12:46 | Outpatient (BNVA) | payer MEDICARE, OTHER, SELFPAY | PROVIDERS: PCP Internal Medicine; Visit Provider Psychiatry & Neurology Neurology | DX: R56.9 Unspecified convulsions (principal); G47.30 Sleep apnea, unspecified; G25.81 Restless legs syndrome | CPT/HCPCS: 99212 ==